=== PATIENT | female | born 1955 | race Caucasian/White ===

== ENCOUNTER 2016-12-23 10:44 | Inpatient (IN) | payer OTHER ==
[2016-12-23] MEDS ORDERED: IPRATROPIUM/ALBUTEROL 0.5-2.5 MG/3 ML AMPUL NEB ONE ×2 (10:53)
[2016-12-23 11:20] LABS: ABSOLUTE BASOPHILS # (AUTO) 0.1 10^3/uL (0.0-0.2); ABSOLUTE LYMPHOCYTES (AUTO) 1.4 10^3/uL (0.5-4.7); ABSOLUTE MONOCYTES (AUTO) 0.7 10^3/uL (0.1-1.4); ABSOLUTE NEUT (AUTO) 11.8 10^3/uL (1.7-8.2); BASOPHILS % (AUTO) 0.5 % (0-2); EOSINOPHILS % (AUTO) 0.3 % (0-6); HEMATOCRIT 47.1 % (36.0-47.0); HEMOGLOBIN 15.2 g/dL (12.0-15.5); HGB HCT DIFFERENCE -1.5; LYMPHOCYTES % (AUTO) 9.9 % (13-45); MEAN CORPUSCULAR HEMOGLOBIN 29.3 pg (27.0-33.4); MEAN CORPUSCULAR HGB CONC 32.3 g/dL (32.0-36.0); MEAN CORPUSCULAR VOLUME 91 fl (80-97); MONOCYTES % (AUTO) 5.1 % (3-13); RED CELL DISTRIBUTION WIDTH 14.6 % (11.5-14.0); SEGMENTED NEUTROPHILS % (AUTO) 84.2 % (42-78); WHITE BLOOD COUNT 14.1 10^3/uL (4.0-10.5)
[2016-12-23 11:33] LABS: ALANINE AMINOTRANSFERASE 28 U/L (9-52); ALBUMIN 4.2 g/dL (3.5-5.0); ALKALINE PHOSPHATASE 85 U/L (38-126); ANION GAP 12 (5-19); ASPARTATE AMINO TRANSFERASE 19 U/L (14-36); BILIRUBIN,DIRECT 0.5 mg/dL (0.0-0.4); BILIRUBIN,TOTAL 1.3 mg/dL (0.2-1.3); BLOOD UREA NITROGEN 12 mg/dL (7-20); CALCIUM 9.1 mg/dL (8.4-10.2); CARBON DIOXIDE 32 mmol/L (22-30); CHLORIDE 99 mmol/L (98-107); CREATINE KINASE 31 U/L (30-135); CREATININE RESULT 0.46 mg/dL (0.52-1.25); GLUCOSE 310 mg/dL (75-110); POTASSIUM 4.3 mmol/L (3.6-5.0); SODIUM 143.2 mmol/L (137-145); TOTAL PROTEIN 7.1 g/dL (6.3-8.2)
--- NOTE | 2016-12-23 11:36 | ER Document Report ---
ED General - General Chief Complaint: Breathing Difficulty Stated Complaint: DIFFICULTY BREATHING Mode of Arrival: Medic Information source: Patient Notes: 61-year-old female history of COPD presents with complaints of difficulty breathing shortness of breath, EMS noted patient was satting 63% on room air, patient was given breathing treatments and improved up to 85%. Patient denies any fevers admits to productive cough TRAVEL OUTSIDE OF THE [place] IN LAST 30 DAYS: No - HPI Onset: Other - 2 week duration Onset/Duration: Persistent Quality of pain: Achy Severity: Mild Pain Level: 1 Associated symptoms: Nonproductive cough, Shortness of breath Exacerbated by: Walking Relieved by: Denies Similar symptoms previously: Yes Recently seen / treated by doctor: Yes - Related Data Allergies/Adverse Reactions: No Known Drug Allergies Allergy (Verified 11/12/16 00:27) mosquito bites Allergy (Severe, Uncoded 11/12/16 00:27) Anaphylaxis Past Medical History - Social History Smoking Status: Former Smoker Cigarette use (# per day): No Chew tobacco use (# tins/day): No Smoking Education Provided: No Frequency of alcohol use: None Drug Abuse: None Family History: CAD, DM, Hypertension - Past Medical History Cardiac Medical History: Reports: Hx Congestive Heart Failure, Hx Hypercholesterolemia, Hx Hypertension, Hx Heart Murmur Pulmonary Medical History: Reports: Hx COPD, Hx Pneumonia Endocrine Medical History: Reports: Hx Diabetes Mellitus Type 2 Renal/ Medical History: Denies: Hx Peritoneal Dialysis GI Medical History: Reports: Hx Gastroesophageal Reflux Disease Psychiatric Medical History: Reports: Hx Depression Past Surgical History: Reports: Hx Orthopedic Surgery - Carpal tunnel release. - Immunizations Hx Diphtheria, Pertussis, Tetanus Vaccination: Yes Hx Pneumococcal Vaccination: 01/01/15 Review of Systems - Review of Systems Notes: REVIEW OF SYSTEMS: CONSTITUTIONAL : Denies fever, chills, or sweats. Denies recent illness. EENT: Denies eye, ear, throat, or mouth pain or symptoms. Denies nasal or sinus congestion or discharge. Denies throat, tongue, or mouth swelling or difficulty swallowing. CARDIOVASCULAR: Denies chest pain. Denies palpitations or racing or irregular heart beat. Denies ankle edema. RESPIRATORY: Admits to cough wheezing shortness of breath GASTROINTESTINAL: Denies abdominal pain or distention. Denies nausea, vomiting , or diarrhea. Denies blood in vomitus, stools, or per rectum. Denies black, tarry stools. Denies constipation. GENITOURINARY: Denies difficulty urinating, painful urination, burning, frequency, blood in urine, or discharge. FEMALE GENITOURINARY: Denies vaginal bleeding, heavy or abnormal periods, irregular periods. Denies vaginal discharge or odor. MUSCULOSKELETAL: Denies back or neck pain or stiffness. Denies joint pain or swelling. SKIN: Denies rash, lesions or sores. HEMATOLOGIC : Denies easy bruising or bleeding. LYMPHATIC: Denies swollen, enlarged glands. NEUROLOGICAL: Denies confusion or altered mental status. Denies passing out or loss of consciousness. Denies dizziness or lightheadedness. Denies headache. Denies weakness or paralysis or loss of use of either side. Denies problems with gait or speech. Denies sensory loss, numbness, or tingling. Denies seizures. PSYCHIATRIC: Denies anxiety or stress. Denies depression, suicidal ideation, or homicidal ideation. ALL OTHER SYSTEMS REVIEWED AND NEGATIVE. Dictation was performed using [employer] voice recognition software PHYSICAL EXAMINATION: GENERAL: Well-appearing, well-nourished and in mild respiratory distress HEAD: Atraumatic, normocephalic. EYES: Pupils equal round and reactive to light, extraocular movements intact, conjunctiva are normal. ENT: Nares patent, oropharynx clear without exudates. Moist mucous membranes. NECK: Normal range of motion, supple without lymphadenopathy LUNGS: Coarse wheezing all throughout HEART: Regular rate and rhythm without murmurs ABDOMEN: Soft, nontender, nondistended abdomen. No guarding, no rebound. No masses appreciated. Female : deferred Musculoskeletal: Normal range of motion, no pitting or edema. No cyanosis. NEUROLOGICAL: Cranial nerves grossly intact. Normal speech, normal gait. Normal sensory, motor exams PSYCH: Normal mood, normal affect. SKIN: Warm, Dry, normal turgor, no rashes or lesions noted. Physical Exam - Vital signs Vitals: Pulse Ox 85 L 12/23/16 10:55 Course - Re-evaluation Re-evalutation: 12/23/16 11:34 Patient immediately started on duo nebs otherwise she actually looks quite well for her hypoxemia, i expect admission 12/23/16 12:13 pt sats are 86% on nc, will admit at this tie for copd exacerbation, pt has received 3 total duo neb with 1 albuterol, steroids. - Vital Signs Vital signs: Temp Pulse Resp BP Pulse Ox 98.2 F 21 H 140/81 H 84 L 12/23/16 11:08 12/23/16 11:01 12/23/16 11:01 12/23/16 11:01 - Laboratory Result Diagrams: 12/23/16 11:10 12/23/16 11:10 Laboratory results interpreted by me: 12/23/16 12/23/16 12/23/16 11:10 11:10 11:10 WBC 14.1 H Hct 47.1 H RDW 14.6 H Seg Neutrophils % 84.2 H Lymphocytes % 9.9 L Absolute Neutrophils 11.8 H Carbon Dioxide 32 H Creatinine 0.46 L Glucose 310 H Direct Bilirubin 0.5 H NT-Pro-B Natriuret Pep 1100 H - Diagnostic Test Radiology reviewed: Image reviewed, Reports reviewed - EKG Interpretation by Me EKG shows normal: Sinus rhythm, [place], Intervals, QRS Complexes Critical Care Note - Critical Care Note Total time excluding time spent on procedures (mins): 34 Comments: 37 minutes of critical care time spent in direct contact evaluating and reevaluating the patient, treating symptoms, reviewing labs and studies and speaking with family and consultants excluding any procedures Discharge - Discharge Clinical Impression: Acute exacerbation of chronic obstructive pulmonary disease (COPD), Acute respiratory failure with hypoxemia Condition: Serious Disposition: ADMITTED INPATIENT Admitting Provider: Hospitalist Unit Admitted: Telemetry
[2016-12-23] MEDS ORDERED: LEVOFLOXACIN 750 MG/D5W RTU 150 ML IV ONE (11:43)
[2016-12-23 11:44] LABS: CREATINE KINASE MB 1.57 ng/mL (<4.55)
[2016-12-23 12:04] LABS: TROPONIN I 0.055 ng/mL
[2016-12-23] MEDS ORDERED: LEVALBUTEROL HCL NEB 1.25 MG/3 ML AMPUL NEB PRN (14:46)
[2016-12-23] MEDS ORDERED: NORMAL SALINE 1000 ML 1,000 ML IV PRN (14:46)
[2016-12-23] MEDS ORDERED: ACETAMINOPHEN 325 MG TABLET PO PRN (14:46)
[2016-12-23] MEDS ORDERED: ONDANSETRON HCL INJ/PF 4 MG/2 ML SDV IV PRN (14:46)
[2016-12-23] MEDS ORDERED: DEXTROSE 40% GEL 15 GM TUBE PO PRN ×2 (14:52)
[2016-12-23] MEDS ORDERED: GLUCAGON,HUMAN RECOMB 1 MG INJ IM PRN (14:52)
[2016-12-23] MEDS ORDERED: DEXTROSE 50%-WATER 25 GM/50 ML DISP.SYRIN IV PRN ×2 (14:52)
--- NOTE | 2016-12-23 15:16 | PDOC H&P ---
History of Present Illness Admission Date/PCP: 12/23/16 12:58 Patient complains of: Shortness of breath History of Present Illness: ISI SESAY is a 61 year old female, with history of hypertension, gastroesophageal reflux disease, COPD, chronic hypoxemic respiratory failure on home oxygen started to develop increasing shortness of breath at about 1 week duration. Patient recently discharged from the hospital 6 weeks ago for COPD exacerbation and pneumonia. She was doing fine until about 2 weeks ago reportedly she was diagnosed with diabetes mellitus. She was started on metformin and since then she started to develop shortness of breath. There is associated wheezing. No increasing lower extremity edema, no chest pain, no chills or fever, no sinus congestion or sore throat. There is no paroxysmal nocturnal dyspnea, nor orthopnea. She uses her nebulizers and inhalers aborting some relief of symptoms. For the past week the shortness of breath got worse, she decided to stop her metformin, her symptoms however persisted. Patient went to the emergency room for evaluation. Patient reportedly tachycardic and hypoxemic despite on supplemental oxygen and was therefore referred for admission. Past Medical History Past Medical History: Medication reconciliation pending verification from the patient's pharmacist Cardiac Medical History: Reports: Congestive Heart Failure, Hyperlipidema, Hypertension, Heart Murmur Pulmonary Medical History: Reports: Chronic Obstructive Pulmonary Disease (COPD) , Pneumonia Endocrine Medical History: Reports: Diabetes Mellitus Type 2 GI Medical History: Reports: Gastroesophageal Reflux Disease Psychiatric Medical History: Reports: Depression Past Surgical History Past Surgical History: Reports: Orthopedic Surgery - Carpal tunnel release. Social History Information Source: Patient Smoking Status: Former Smoker Frequency of Alcohol Use: Rare Hx Recreational Drug Use: Yes Drugs: Marijuana Hx Prescription Drug Abuse: No Family History Family History: CAD, DM, Hypertension Parental Family History Reviewed: Yes Children Family History Reviewed: Yes Sibling(s) Family History Reviewed.: Yes Medication/Allergy Allergies/Adverse Reactions: No Known Drug Allergies Allergy (Verified 11/12/16 00:27) mosquito bites Allergy (Severe, Uncoded 11/12/16 00:27) Anaphylaxis Review of Systems Constitutional: PRESENT: fatigue - Generalized. ABSENT: chills, fever(s), headache(s), weight gain, weight loss Eyes: ABSENT: visual disturbances Ears: ABSENT: hearing changes Nose, Mouth, and Throat: ABSENT: mouth pain, sore throat Cardiovascular: PRESENT: dyspnea on exertion. ABSENT: chest pain, edema, orthropnea, palpitations Respiratory: PRESENT: cough, dyspnea - Occasional, sputum - Occasional whitish. ABSENT: hemoptysis Gastrointestinal: ABSENT: abdominal pain, coffee ground emesis, constipation, diarrhea, hematemesis, hematochezia, melena, nausea, vomiting Genitourinary: ABSENT: difficulty urinating, dysuria, hematuria Musculoskeletal: ABSENT: joint swelling Integumentary: ABSENT: pruritus, rash, wounds Neurological: ABSENT: abnormal gait, abnormal speech, confusion, dizziness, focal weakness, syncope Psychiatric: ABSENT: anxiety, depression, homidical ideation, suicidal ideation Endocrine: ABSENT: cold intolerance, heat intolerance, polydipsia, polyphagia, polyuria Hematologic/Lymphatic: ABSENT: easy bleeding, easy bruising Physical Exam Vital Signs: Temp Pulse Resp BP Pulse Ox 98.2 F 26 H 137/73 H 87 L 12/23/16 11:08 12/23/16 14:00 12/23/16 12:01 12/23/16 14:00 General appearance: PRESENT: no acute distress, mild distress, well-developed, well-nourished Head exam: PRESENT: atraumatic, normocephalic Eye exam: PRESENT: conjunctiva pink, EOMI, PERRLA. ABSENT: scleral icterus Ear exam: PRESENT: normal external ear exam. ABSENT: drainage Mouth exam: PRESENT: moist, neck supple, tongue midline Neck exam: ABSENT: carotid bruit, JVD, lymphadenopathy, thyromegaly Respiratory exam: PRESENT: decreased breath sounds, wheezes - Mild bilateral. ABSENT: rales, rhonchi Cardiovascular exam: PRESENT: RRR, +S1, +S2. ABSENT: rubs Pulses: PRESENT: normal dorsalis pedis pul Vascular exam: PRESENT: normal capillary refill GI/Abdominal exam: PRESENT: normal bowel sounds, soft. ABSENT: distended, guarding, mass, organolmegaly, rebound, tenderness Rectal exam: PRESENT: deferred Extremities exam: PRESENT: full ROM, other - Trace pretibial edema. ABSENT: calf tenderness, clubbing Neurological exam: PRESENT: alert, awake, oriented to person, oriented to place , oriented to time, oriented to situation, CN II-XII grossly intact. ABSENT: motor sensory deficit Psychiatric exam: PRESENT: appropriate affect, normal mood. ABSENT: homicidal ideation, suicidal ideation Skin exam: PRESENT: dry, intact, warm. ABSENT: cyanosis, rash Results Impressions: Chest X-Ray 12/23/16 10:53 IMPRESSION: Prominent central pulmonary vasculature suggesting pulmonary hypertension. Assessment & Plan - Diagnosis (1) Acute on chronic respiratory failure with hypoxemia Is this a current diagnosis for this admission?: Yes (2) Acute exacerbation of chronic obstructive pulmonary disease (COPD) Is this a current diagnosis for this admission?: Yes (3) Depression Qualifiers: Depression Type: unspecified Qualified Code(s): F32.9 - Major depressive disorder, single episode, unspecified Is this a current diagnosis for this admission?: Yes (4) GERD (gastroesophageal reflux disease) Qualifiers: Esophagitis presence: without esophagitis Qualified Code(s): K21.9 - Gastro-esophageal reflux disease without esophagitis Is this a current diagnosis for this admission?: Yes (5) Hyperlipidemia Qualifiers: Hyperlipidemia type: unspecified Qualified Code(s): E78.5 - Hyperlipidemia, unspecified Is this a current diagnosis for this admission?: Yes (6) Type II diabetes mellitus Qualifiers: Diabetes mellitus complication status: with unspecified complications Diabetes mellitus exterminator helper insulin use: without exterminator helper use Qualified Code(s): E11.8 - Type 2 diabetes mellitus with unspecified complications Is this a current diagnosis for this admission?: Yes - Time Time Spent: 50 to 70 Minutes - Inpatient Certification Based on my medical assessment, after consideration of the patient's comorbidities, presenting symptoms, or acuity I expect that the services needed warrant INPATIENT care.: Yes I certify that my determination is in accordance with my understanding of Medicare's requirements for reasonable and necessary INPATIENT services [42 CFR 412.3e].: Yes Medical Necessity: Significant Comorbidiites Make Outpatient Treatment Too Risky , Need For Continuous Telemetry Monitoring, Need for Nebulizer Therapy and Monitoring of Response, Risk of Complication if Not Cared For in Hospital Post Hospital Care: D/C Pompom Maker Documentation - Plan Summary Plan Summary: The patient will be admitted to telemetry. The patient will be on supplemental oxygen, start intravenous steroid, [id number] bronchodilators. I will culture the patient's sputum. I will discontinue her metformin, begin her on Amaryl. Begin sliding scale with regular insulin coverage. DVT prophylaxis with Lovenox will be placed. We will serially monitor troponins. I will begin her on aspirin. Patient denies any chest pain at all. We will continue to monitor. Further testing depends on initial evaluation as outlined above.
[2016-12-23] MEDS ORDERED: ASPIRIN 81 MG TABLET, CHEWABLE PO ONE (16:00)
[2016-12-23] MEDS ORDERED: GLIMEPIRIDE 1 MG TABLET PO ONE (16:00)
[2016-12-23 16:12] LABS: CREATINE KINASE MB 1.98 ng/mL (<4.55); TROPONIN I 0.047 ng/mL
[2016-12-23] MEDS: IPRATROPIUM/ALBUTEROL 0.5-2.5 MG/3 ML AMPUL NEB SCH ×2 (16:58→20:14)
[2016-12-23] MEDS: METHYLPREDNISOLONE INJ 125 MG/2 ML SDV IV SCH ×2 (18:20→21:31)
[2016-12-23] MEDS: INSULIN REG, HUMAN 100 UNIT/ML 3 ML VIAL (PYX) SUBCUT PRN ×2 (18:20→21:31)
[2016-12-23] MEDS: DOCUSATE SODIUM 100 MG CAPSULE PO SCH (18:21)
--- NOTE | 2016-12-23 20:03 | EKG REPORT ---
SEVERITY:- ABNORMAL ECG - SINUS TACHYCARDIA LOW VOLTAGE IN FRONTAL LEADS CONSIDER ANTEROSEPTAL INFARCT : Confirmed by: Leslie Dalton MD 23-Dec-2016 20:02:16
[2016-12-23] MEDS: PAROXETINE HCL 20 MG TABLET PO SCH (21:31)
[2016-12-23 21:52] LABS: CREATINE KINASE MB 2.22 ng/mL (<4.55); TROPONIN I 0.031 ng/mL
[2016-12-24] MEDS: IPRATROPIUM/ALBUTEROL 0.5-2.5 MG/3 ML AMPUL NEB SCH ×7 (00:07→23:08)
[2016-12-24 03:13] LABS: HEMOGLOBIN 14.1 g/dL (12.0-15.5); HGB HCT DIFFERENCE -0.7; MEAN CORPUSCULAR HEMOGLOBIN 29.3 pg (27.0-33.4); MEAN CORPUSCULAR HGB CONC 32.9 g/dL (32.0-36.0); MEAN CORPUSCULAR VOLUME 89 fl (80-97); RED BLOOD COUNT 4.83 10^6/uL (3.72-5.28); RED CELL DISTRIBUTION WIDTH 14.8 % (11.5-14.0); WHITE BLOOD COUNT 8.9 10^3/uL (4.0-10.5)
[2016-12-24 03:32] LABS: CREATINE KINASE MB 2.13 ng/mL (<4.55); TROPONIN I 0.039 ng/mL
[2016-12-24] MEDS: METHYLPREDNISOLONE INJ 125 MG/2 ML SDV IV SCH ×4 (04:12→21:32)
[2016-12-24] MEDS: LANSOPRAZOLE 30 MG TAB.RAP.DR PO SCH (05:22)
[2016-12-24] MEDS ORDERED: (PENDING PHARMACY ID) (Nifedipine [Nifedipine Er] 60 MG) PO SCH (10:00)
[2016-12-24] MEDS ORDERED: (PENDING PHARMACY ID) (Calcium Carbonate/Vitamin D3 [Calcium 500-Vit D3 200 Caplet] 1 TAB) PO SCH (10:00)
[2016-12-24] MEDS: NIFEDIPINE 30 MG TAB.ER.24 PO SCH (10:20)
[2016-12-24] MEDS: CALCIUM CARBONATE 250 MG/VITAMIN D3 125 UNIT TABLET PO SCH (10:21)
[2016-12-24] MEDS: GLIMEPIRIDE 1 MG TABLET PO SCH (10:21)
[2016-12-24] MEDS: ENOXAPARIN SODIUM INJ 40 MG/0.4 ML DISP.SYRIN SUBCUT SCH (10:21)
[2016-12-24] MEDS: ASPIRIN 81 MG TABLET, CHEWABLE PO SCH (10:21)
[2016-12-24] MEDS: DOCUSATE SODIUM 100 MG CAPSULE PO SCH ×2 (10:22→17:14)
--- NOTE | 2016-12-24 10:29 | PDOC PROGRESS REPORT ---
Subjective Progress Note for:: 12/24/16 Subjective:: Patient is breathing better today. Denies chest pain or nausea, vomiting, chills nor fever. No diarrhea. No PND or orthopnea. Wheezing significantly improved. Patient wanting pulmonary function tests for her [facility] application regarding her COPD. Physical Exam Vital Signs: Temp Pulse Resp BP Pulse Ox 98.2 F 113 H 20 137/74 H 68 L 12/24/16 07:41 12/24/16 07:52 12/24/16 07:52 12/24/16 07:41 12/24/16 07:52 Intake & Output 12/23/16 12/24/16 12/25/16 06:59 06:59 06:59 Intake Total 472 Balance 472 Weight 73.8 kg General appearance: PRESENT: no acute distress, other - Nasal cannula oxygen Head exam: PRESENT: normocephalic Eye exam: PRESENT: EOMI Mouth exam: PRESENT: moist, neck supple Neck exam: ABSENT: JVD Respiratory exam: PRESENT: clear to auscultation taurus, decreased breath sounds. ABSENT: rhonchi, wheezes Cardiovascular exam: PRESENT: RRR. ABSENT: gallop GI/Abdominal exam: PRESENT: normal bowel sounds, soft. ABSENT: distended, tenderness Extremities exam: ABSENT: pedal edema Neurological exam: PRESENT: alert, awake, oriented to situation Skin exam: PRESENT: dry, warm. ABSENT: cyanosis Results Laboratory Results: 12/24/16 03:00 12/24/16 03:00 WBC 8.9 RBC 4.83 Hgb 14.1 Hct 43.0 MCV 89 MCH 29.3 MCHC 32.9 RDW 14.8 H Plt Count 225 12/23/16 12/23/16 12/23/16 15:33 15:33 20:55 Creatine Kinase 27 L 29 L CK-MB (CK-2) 1.98 Troponin I 0.047 12/23/16 12/24/16 12/24/16 20:55 03:00 03:00 Creatine Kinase 29 L CK-MB (CK-2) 2.22 2.13 Troponin I 0.031 0.039 Impressions: Chest X-Ray 12/23/16 10:53 IMPRESSION: Prominent central pulmonary vasculature suggesting pulmonary hypertension. Assessment & Plan - Diagnosis (1) Acute on chronic respiratory failure with hypoxemia Is this a current diagnosis for this admission?: Yes (2) Acute exacerbation of chronic obstructive pulmonary disease (COPD) Is this a current diagnosis for this admission?: Yes (3) Depression Qualifiers: Depression Type: unspecified Qualified Code(s): F32.9 - Major depressive disorder, single episode, unspecified Is this a current diagnosis for this admission?: Yes (4) GERD (gastroesophageal reflux disease) Qualifiers: Esophagitis presence: without esophagitis Qualified Code(s): K21.9 - Gastro-esophageal reflux disease without esophagitis Is this a current diagnosis for this admission?: Yes (5) Hyperlipidemia Qualifiers: Hyperlipidemia type: unspecified Qualified Code(s): E78.5 - Hyperlipidemia, unspecified Is this a current diagnosis for this admission?: Yes (6) Type II diabetes mellitus Qualifiers: Diabetes mellitus complication status: with unspecified complications Diabetes mellitus mcfp insulin use: without terminal operator use Qualified Code(s): E11.8 - Type 2 diabetes mellitus with unspecified complications; Z79.4 - petroleum terminal plant operator (current) use of insulin Is this a current diagnosis for this admission?: Yes - Time Time Spent with patient: 25-34 minutes - Plan Summary Plan Summary: Continue IV steroids for now and nebulizers. Discontinue intravenous fluids. Follow cultures. We will schedule the patient for outpatient pulmonary function tests would improve. Continue supportive care. Increase activity. Continue supplemental oxygen.
[2016-12-24] MEDS: INSULIN REG, HUMAN 100 UNIT/ML 3 ML VIAL (PYX) SUBCUT PRN ×3 (11:40→21:31)
[2016-12-24 19:10] LABS: APPEARANCE,URINE CLEAR; BILIRUBIN,URINE NEGATIVE (NEGATIVE); GLUCOSE, URINE >=500 mg/dL (NEGATIVE); KETONES,URINE TRACE mg/dL (NEGATIVE); LEUKOCYTE ESTERASE,URINE NEGATIVE (NEGATIVE); NITRITE,URINE NEGATIVE (NEGATIVE); PROTEIN,URINE NEGATIVE (NEGATIVE); URINE SPECIFIC GRAVITY 1.033; UROBILINOGEN,URINE NEGATIVE mg/dL (<2.0)
[2016-12-24] MEDS: PAROXETINE HCL 20 MG TABLET PO SCH (21:31)
[2016-12-25] MEDS: METHYLPREDNISOLONE INJ 125 MG/2 ML SDV IV SCH ×2 (02:42→10:24)
[2016-12-25] MEDS: IPRATROPIUM/ALBUTEROL 0.5-2.5 MG/3 ML AMPUL NEB SCH ×3 (03:05→11:54)
[2016-12-25] MEDS: LANSOPRAZOLE 30 MG TAB.RAP.DR PO SCH (05:09)
[2016-12-25] MEDS: GLIMEPIRIDE 1 MG TABLET PO SCH (07:54)
[2016-12-25] MEDS: INSULIN REG, HUMAN 100 UNIT/ML 3 ML VIAL (PYX) SUBCUT PRN ×2 (07:59→11:47)
[2016-12-25] MEDS: ENOXAPARIN SODIUM INJ 40 MG/0.4 ML DISP.SYRIN SUBCUT SCH (08:00)
[2016-12-25] MEDS: CALCIUM CARBONATE 250 MG/VITAMIN D3 125 UNIT TABLET PO SCH (10:23)
[2016-12-25] MEDS: DOCUSATE SODIUM 100 MG CAPSULE PO SCH (10:24)
[2016-12-25] MEDS: ASPIRIN 81 MG TABLET, CHEWABLE PO SCH (10:24)
[2016-12-25] MEDS: NIFEDIPINE 30 MG TAB.ER.24 PO SCH (10:24)
--- NOTE | 2016-12-25 12:21 | PDOC DISCHARGE SUMMARY ---
General - Admit/Disc Date/PCP Admission Date/Primary Care Provider: 12/23/16 14:46 Discharge Date: 12/25/16 - Discharge Diagnosis (1) Acute on chronic respiratory failure with hypoxemia Is this a current diagnosis for this admission?: Yes (2) Acute exacerbation of chronic obstructive pulmonary disease (COPD) Is this a current diagnosis for this admission?: Yes (3) Depression Is this a current diagnosis for this admission?: Yes (4) GERD (gastroesophageal reflux disease) Is this a current diagnosis for this admission?: Yes (5) Hyperlipidemia Is this a current diagnosis for this admission?: Yes (6) Type II diabetes mellitus Is this a current diagnosis for this admission?: Yes - Additional Information Resuscitation Status: Full Code Discharge Diet: Cardiac - low-fat low-salt, Diabetic - no concentrated sweets Discharge Activity: Activity As Tolerated, Balance Activity w/Rest, Slowly Increase Activity Home Medications: Albuterol Sulfate [Ventolin 0.083% Neb 2.5 mg/3 mL Ampul] 2.5 mg NEB Q4HP PRN Budesonide/Formoterol Fumarate [Symbicort HFA 160-4.5 mcg Inhaler 6 gm] 2 puff IH Q12 12/23/16 Calcium Carbonate/Vitamin D3 [Calcium 500-Vit D3 200 Tablet] 1 tab PO DAILY Ipratropium [place] [Atrovent 0.02% Neb 0.5 mg/2.5 ml Ampul] 0.5 mg NEB Q4HP PRN 12/23/16 Ipratropium/Albuterol Sulfate [Combivent Respimat 4 gm Mdi] 1 puff IH Q6 Medroxyprogesterone Acet [Depo-Provera Inj 150 mg/1 ml Vial] 150 mg IM ASDIR Nifedipine [Nifedipine ER] 60 mg PO DAILY 12/23/16 Omeprazole 20 mg PO Q12 12/23/16 Paroxetine HCl [Paxil 20 mg Tablet] 10 mg PO QHS 12/23/16 Aspirin [Aspirin 81 mg Chewable Tablet] 81 mg PO DAILY tab.chew 12/25/16 Glimepiride [Amaryl 1 mg Tablet] 2 mg PO ACBRKFST #30 tablet 12/25/16 Prednisone [Sterapred Ds] 1 pkg PO ASDIR PRN 12 Days 12/25/16 Additional Information: Return to the emergency room if symptoms get worse Measure blood sugar 3 times a day and record. Bring to next physician visit Pulmonary function test as outpatient in 2-4 weeks with primary care physician. Continue home oxygen at 2 L nasal cannula History of Present Illness Patient complains of: Shortness of breath History of Present Illness: ISI SESAY is a 61 year old female, with history of hypertension, gastroesophageal reflux disease, COPD, chronic hypoxemic respiratory failure on home oxygen started to develop increasing shortness of breath at about 1 week duration. Patient recently discharged from the hospital 6 weeks ago for COPD exacerbation and pneumonia. She was doing fine until about 2 weeks ago reportedly she was diagnosed with diabetes mellitus. She was started on metformin and since then she started to develop shortness of breath. There is associated wheezing. No increasing lower extremity edema, no chest pain, no chills or fever, no sinus congestion or sore throat. There is no paroxysmal nocturnal dyspnea, nor orthopnea. She uses her nebulizers and inhalers aborting some relief of symptoms. For the past week the shortness of breath got worse, she decided to stop her metformin, her symptoms however persisted. Patient went to the emergency room for evaluation. Patient reportedly tachycardic and hypoxemic despite on supplemental oxygen and was therefore referred for admission. Hospital Course Hospital Course: The patient was admitted to telemetry. The patient was started on intravenous steroids, [id number] nebulizers, supplemental oxygen, and DVT prophylaxis with Lovenox. She was placed on sliding scale insulin with regular insulin coverages. Amaryl was begun. Patient improved the following morning, in terms of wheezing and shortness of breath. On the third day of hospitalization, the patient continues to improve, she is less tachycardic, and able to ambulate better. She is very adamant about going home and continue treatment on an outpatient basis. She has stopped smoking years ago. She has nebulizers and inhalers at home. She requested to be discharged home on the third day of hospitalization. She refuses to take her metformin and therefore this was discontinued. She was advised to measure her blood sugar 3 times a day and record, bring to primary care physician visit. She was advised to return to the emergency room if symptoms worsen. Physical Exam Vital Signs: Temp Pulse Resp BP Pulse Ox 98.2 F 101 H 20 127/70 H 94 12/25/16 08:31 12/25/16 08:31 12/25/16 08:31 12/25/16 08:31 12/25/16 08:31 Intake & Output 12/24/16 12/25/16 12/26/16 06:59 06:59 06:59 Intake Total 472 702 Balance 472 702 Weight 73.8 kg 74.6 kg General appearance: PRESENT: no acute distress, cooperative Head exam: PRESENT: normocephalic Eye exam: PRESENT: EOMI Mouth exam: PRESENT: moist, neck supple Neck exam: ABSENT: JVD Respiratory exam: PRESENT: decreased breath sounds, rhonchi - few, unlabored. ABSENT: wheezes Cardiovascular exam: PRESENT: RRR. ABSENT: gallop GI/Abdominal exam: PRESENT: soft. ABSENT: distended, tenderness Extremities exam: ABSENT: pedal edema Neurological exam: PRESENT: alert, awake, oriented to person, oriented to place , oriented to time, oriented to situation Skin exam: PRESENT: dry, warm. ABSENT: cyanosis Results Laboratory Results: 12/24/16 03:00 12/23/16 18:41 Urine Color YELLOW Urine Appearance CLEAR Urine pH 6.0 Ur Specific [place] 1.033 Urine Protein NEGATIVE Urine Glucose (UA) >=500 H Urine Ketones TRACE H Urine Blood NEGATIVE Urine Nitrite NEGATIVE Ur Leukocyte Esterase NEGATIVE Urine WBC (Auto) 1 Urine RBC (Auto) 1 12/23/16 12/23/16 12/23/16 15:33 15:33 20:55 Creatine Kinase 27 L 29 L CK-MB (CK-2) 1.98 Troponin I 0.047 12/23/16 12/24/16 12/24/16 20:55 03:00 03:00 Creatine Kinase 29 L CK-MB (CK-2) 2.22 2.13 Troponin I 0.031 0.039 Impressions: Chest X-Ray 12/23/16 10:53 IMPRESSION: Prominent central pulmonary vasculature suggesting pulmonary hypertension. Qualifiers PATEINT BEING DISCHARGED WITH ANY OF THE FOLLOWING DIAGNOSIS?: No Plan Discharge Plan: Follow-up with primary care physician in 3-5 days. Time Spent: Less than 30 Minutes
[2016-12-25 12:41] VITALS: BP 122/72
[2016-12-25] MEDS ORDERED: POTASSI CL 20 MEQ/50 ML RIDER 0 MEQ/0 ML RTUPB IV ONE (13:45)
== END 2016-12-25 13:00 | disposition home or self-care (01) | DRG 190 ==
LOC: ER 10:44 → UNDOADMIN 12:58 → EH 12:58 → 4N 16:18
PROC: 3E0F73Z Introduction of Anti-inflammatory into Respiratory Tract, Via Natural or Artificial Opening (ICD-10-PCS; principal; 2016-12-23)
DX: J44.1 Chronic obstructive pulmonary disease with (acute) exacerbation (principal); J96.21 Acute and chronic respiratory failure with hypoxia; F32.9 Major depressive disorder, single episode, unspecified; K21.9 Gastro-esophageal reflux disease without esophagitis; E78.5 Hyperlipidemia, unspecified; E11.9 Type 2 diabetes mellitus without complications; I10 Essential (primary) hypertension; I27.2 Other secondary pulmonary hypertension; E78.00 Pure hypercholesterolemia, unspecified; I50.9 Heart failure, unspecified; Z99.81 Dependence on supplemental oxygen; Z79.82 Long term (current) use of aspirin; Z79.899 Other long term (current) drug therapy; Z87.891 Personal history of nicotine dependence; Z79.4 Long term (current) use of insulin; Z83.3 Family history of diabetes mellitus; Z82.49 Family history of ischemic heart disease and other diseases of the circulatory system
CPT/HCPCS: 36415; 71010; 80053; 81001; 82550; 82553; 82962; 83880; 84484; 85025; 85027; 87040; 93005; 93010; 94640; 96365; 99291; J1650; J1815; J1956; J2930; J7620

== ENCOUNTER 2017-01-18 18:23 | Inpatient (IN) | payer OTHER ==
[2017-01-18] MEDS ORDERED: HYDROCODONE/ACETAMINOPHEN 5-325 MG TABLET PO ONE (19:30)
[2017-01-18] MEDS ORDERED: IPRATROPIUM/ALBUTEROL 0.5-2.5 MG/3 ML AMPUL NEB ONE (19:31)
[2017-01-18] MEDS ORDERED: ALBUTEROL SULFATE 0.083% NEB 2.5 MG/3 ML AMPUL NEB ONE (19:31)
--- NOTE | 2017-01-18 19:39 | ER Document Report ---
ED Medical Screen (RME) - General Chief Complaint: R leg pain/swelling/ short of breath Stated Complaint: RIGHT LEG PAIN, DIFFICULTY BREATHING Time Seen by Provider: 01/18/17 19:13 Mode of Arrival: Wheelchair Information source: Patient Notes: Patient is a 61-year-old female with a history of COPD who presents to the ER today for pain in her right calf that is progressively worsening over the past couple of days. Patient states that this swelling has spread up into her thigh. She is on no blood thinners and has no history of any blood clots. She also complains of worsening shortness of breath when she walks, she states that she is usually short of breath but that it has worsened here recently. She is on 2 L of oxygen at night at home. TRAVEL OUTSIDE OF THE [place] IN LAST 30 DAYS: No - Related Data Allergies/Adverse Reactions: No Known Drug Allergies Allergy (Verified 11/12/16 00:27) mosquito bites Allergy (Severe, Uncoded 11/12/16 00:27) Anaphylaxis Past Medical History - General Information source: Patient - Social History Cigarette use (# per day): No - Past Medical History Cardiac Medical History: Reports: Hx Congestive Heart Failure, Hx Hypercholesterolemia, Hx Hypertension, Hx Heart Murmur Pulmonary Medical History: Reports: Hx COPD, Hx Pneumonia Endocrine Medical History: Reports: Hx Diabetes Mellitus Type 2 Renal/ Medical History: Denies: Hx Peritoneal Dialysis GI Medical History: Reports: Hx Gastroesophageal Reflux Disease Psychiatric Medical History: Reports: Hx Depression Past Surgical History: Reports: Hx Orthopedic Surgery - Carpal tunnel release. - Immunizations Hx Diphtheria, Pertussis, Tetanus Vaccination: Yes Review of Systems - Review of Systems Respiratory: No symptoms reported Musculoskeletal: No symptoms reported Physical Exam - Vital signs Vitals: Temp Pulse Resp BP Pulse Ox 97.9 F 117 H 20 116/54 L 90 L 01/18/17 18:35 01/18/17 18:35 01/18/17 18:35 01/18/17 18:35 01/18/17 18:35 - Notes Notes: PHYSICAL EXAMINATION: GENERAL: Well-appearing and in no acute distress. NECK: Normal range of motion, supple without lymphadenopathy LUNGS: CTAB and equal. No wheezes rales or rhonchi. HEART: Regular rate and rhythm without murmurs extremities: tender to right calf, Tate's sign positive Course - Vital Signs Vital signs: Temp Pulse Resp BP Pulse Ox 97.9 F 117 H 20 116/54 L 90 L 01/18/17 18:35 01/18/17 18:35 01/18/17 18:35 01/18/17 18:35 01/18/17 18:35
[2017-01-18 20:28] LABS: APPEARANCE,URINE CLOUDY; BILIRUBIN,URINE SMALL (NEGATIVE); GLUCOSE, URINE 50 mg/dL (NEGATIVE); KETONES,URINE TRACE mg/dL (NEGATIVE); LEUKOCYTE ESTERASE,URINE TRACE (NEGATIVE); NITRITE,URINE NEGATIVE (NEGATIVE); PROTEIN,URINE 30 mg/dL (NEGATIVE); UROBILINOGEN,URINE NEGATIVE mg/dL (<2.0)
--- NOTE | 2017-01-18 20:31 | EKG REPORT ---
SEVERITY:- OTHERWISE NORMAL ECG - SINUS TACHYCARDIA : Confirmed by: Yee Cortés 18-Jan-2017 20:30:57
[2017-01-18 20:32] LABS: ABSOLUTE BASOPHILS # (AUTO) 0.1 10^3/uL (0.0-0.2); ABSOLUTE EOSINOPHILS # (AUTO) 0.2 10^3/uL (0.0-0.6); ABSOLUTE MONOCYTES (AUTO) 0.7 10^3/uL (0.1-1.4); ABSOLUTE NEUT (AUTO) 10.5 10^3/uL (1.7-8.2); EOSINOPHILS % (AUTO) 1.8 % (0-6); HEMATOCRIT 42.9 % (36.0-47.0); HEMOGLOBIN 14.1 g/dL (12.0-15.5); HGB HCT DIFFERENCE -0.6; LYMPHOCYTES % (AUTO) 14.5 % (13-45); MEAN CORPUSCULAR HEMOGLOBIN 28.7 pg (27.0-33.4); MEAN CORPUSCULAR VOLUME 87 fl (80-97); MONOCYTES % (AUTO) 5.4 % (3-13); RED BLOOD COUNT 4.93 10^6/uL (3.72-5.28); RED CELL DISTRIBUTION WIDTH 14.5 % (11.5-14.0); SEGMENTED NEUTROPHILS % (AUTO) 77.3 % (42-78); WHITE BLOOD COUNT 13.6 10^3/uL (4.0-10.5)
[2017-01-18] MEDS ORDERED: HEPARIN SODIUM,PORCINE/D5W 250 ML IV PRN (20:39)
[2017-01-18] MEDS ORDERED: HEPARIN SOD (PORCINE) 1,000 UNIT/ML 10 ML VIAL IV ONE (20:39)
[2017-01-18 20:45] LABS: PROTHROMBIN TIME 12.6 SEC (11.4-15.4)
[2017-01-18 20:46] LABS: PARTIAL THROMBOPLASTIN TIME 24.9 SEC (23.5-35.8)
[2017-01-18 20:48] LABS: ALANINE AMINOTRANSFERASE 21 U/L (9-52); ALBUMIN 4.4 g/dL (3.5-5.0); ALKALINE PHOSPHATASE 97 U/L (38-126); ANION GAP 13 (5-19); ASPARTATE AMINO TRANSFERASE 21 U/L (14-36); BILIRUBIN,DIRECT 0.5 mg/dL (0.0-0.4); BLOOD UREA NITROGEN 26 mg/dL (7-20); CALCIUM 10.3 mg/dL (8.4-10.2); CARBON DIOXIDE 27 mmol/L (22-30); CHLORIDE 97 mmol/L (98-107); CREATININE RESULT 0.84 mg/dL (0.52-1.25); GLUCOSE 258 mg/dL (75-110); POTASSIUM 4.1 mmol/L (3.6-5.0); SODIUM 136.5 mmol/L (137-145); TOTAL PROTEIN 8.1 g/dL (6.3-8.2)
--- NOTE | 2017-01-18 22:41 | ER Document Report ---
ED General - General Chief Complaint: R leg pain/swelling/ short of breath Stated Complaint: RIGHT LEG PAIN, DIFFICULTY BREATHING Time Seen by Provider: 01/18/17 19:13 Mode of Arrival: Wheelchair Information source: Patient Notes: This is a 61-year-old female with a history of hypertension, diabetes, COPD who presents to the emergency room with swelling and pain to the right lower extremity. Patient also complains of shortness of breath. Patient does state that her right lower extremity pain and swelling started last night. She denies any previous blood clots. She denies any recent travel. She denies any cancer. She is on medroxyprogesterone shots every 3 months. She last smoked 2 years ago. TRAVEL OUTSIDE OF THE [place] IN LAST 30 DAYS: No - HPI Onset: Yesterday Onset/Duration: Gradual Quality of pain: Dull Severity: Moderate Pain Level: 3 Associated symptoms: Shortness of breath. denies: Chest pain, Fever Exacerbated by: Movement Relieved by: Denies Similar symptoms previously: No Recently seen / treated by doctor: No - Related Data Allergies/Adverse Reactions: No Known Drug Allergies Allergy (Verified 11/12/16 00:27) mosquito bites Allergy (Severe, Uncoded 11/12/16 00:27) Anaphylaxis Past Medical History - General Information source: Patient - Social History Smoking Status: Former Smoker - Quit 2 years ago Cigarette use (# per day): No Chew tobacco use (# tins/day): No Frequency of alcohol use: Rare Drug Abuse: None Lives with: Alone Family History: CAD, DM, Hypertension - Past Medical History Cardiac Medical History: Reports: Hx Congestive Heart Failure, Hx Hypercholesterolemia, Hx Hypertension, Hx Heart Murmur Pulmonary Medical History: Reports: Hx COPD, Hx Pneumonia Endocrine Medical History: Reports: Hx Diabetes Mellitus Type 2 - overnight regular insulin Renal/ Medical History: Denies: Hx Peritoneal Dialysis GI Medical History: Reports: Hx Gastroesophageal Reflux Disease Psychiatric Medical History: Reports: Hx Depression Past Surgical History: Reports: Hx Orthopedic Surgery - Carpal tunnel release. - Immunizations Hx Diphtheria, Pertussis, Tetanus Vaccination: Yes Hx Pneumococcal Vaccination: 01/01/15 Review of Systems - Review of Systems Constitutional: denies: Chills, Fever EENT: No symptoms reported Cardiovascular: See HPI Respiratory: See HPI Gastrointestinal: No symptoms reported Genitourinary: No symptoms reported Female Genitourinary: No symptoms reported Musculoskeletal: See HPI Skin: See HPI Hematologic/Lymphatic: No symptoms reported Neurological/Psychological: No symptoms reported Physical Exam - Vital signs Vitals: Temp Pulse Resp BP Pulse Ox 97.9 F 117 H 20 116/54 L 90 L 01/18/17 18:35 01/18/17 18:35 01/18/17 18:35 01/18/17 18:35 01/18/17 18:35 Notes: Physical exam: GENERAL: 61-year-old female, alert and oriented 3, does appear to be short of breath. HEAD: Atraumatic, normocephalic. EYES: Pupils equal round and reactive to light, extraocular movements intact, sclera anicteric, conjunctiva are normal. ENT: TMs normal, nares patent, oropharynx clear without exudates. Moist mucous membranes. NECK: Normal range of motion, supple without lymphadenopathy or JVD. LUNGS: Wheezing bilaterally HEART: Regular rate and rhythm without murmurs, rubs or gallops. ABDOMEN: Soft, normoactive bowel sounds. No tenderness to palpation. No guarding, no rebound. No masses appreciated. EXTREMITIES: Right lower extremity does have swelling with plethora. There is swelling of the calf with calf tenderness. There is a dorsal pedal pulse which I have marked. There is a bluish to the toes but there is Refill there. The extremity is warm. NEUROLOGICAL: Cranial nerves II through XII grossly intact. Normal speech, normal gait. PSYCH: Normal mood, normal affect. SKIN: Warm, Dry, normal turgor, no rashes or lesions noted. Course - Re-evaluation Re-evalutation: The patient was already started on IV heparin before the vascular study. The tech was able to see good arterial flow. The blood clot goes from the popliteal area to the common femoral. There was venous flow down in the lower leg. 01/18/17 22:45 I discussed the ultrasound findings with Dr. Coburn. He recommends admitting the patient here with IV heparin. The patient was treated for COPD with a dual med with improvement. Obviously, it is possible that she has a PE given the lower extremity DVT findings today. In any event, patient is on heparin and I discussed the case with Dr. Agustin who is admitting the patient. - Vital Signs Vital signs: Temp Pulse Resp BP Pulse Ox 97.9 F 117 H 20 146/85 H 91 L 01/18/17 18:35 01/18/17 18:35 01/18/17 21:01 01/18/17 21:01 01/18/17 21:01 - Laboratory Result Diagrams: 01/18/17 20:22 01/18/17 20:22 Laboratory results interpreted by me: 01/18/17 01/18/17 01/18/17 19:50 20:22 20:22 WBC 13.6 H RDW 14.5 H Absolute Neutrophils 10.5 H Sodium 136.5 L Chloride 97 L BUN 26 H Glucose 258 H POC Glucose Calcium 10.3 H Direct Bilirubin 0.5 H Urine Protein 30 H Urine Glucose (UA) 50 H Urine Ketones TRACE H Urine Bilirubin SMALL H Ur Leukocyte Esterase TRACE H 01/18/17 21:27 WBC RDW Absolute Neutrophils Sodium Chloride BUN Glucose POC Glucose 287 H Calcium Direct Bilirubin Urine Protein Urine Glucose (UA) Urine Ketones Urine Bilirubin Ur Leukocyte Esterase - Diagnostic Test Radiology reviewed: Image reviewed, Reports reviewed - Lower extremity Doppler shows DVT from the popliteal to the common femoral - EKG Interpretation by Me Rate: Tachycardia - EKG shows sinus tachycardia with a ventricular rate of 108, no acute ST-T wave changes Critical Care Note - Critical Care Note Total time excluding time spent on procedures (mins): 60 Discharge - Discharge Clinical Impression: DVT, dyspnea, COPD exacerbation Condition: Stable Disposition: ADMITTED OBSERVATION Admitting Provider: Hospitalist - Dr. Agustin Unit Admitted: Telemetry
--- NOTE | 2017-01-18 23:21 | XCELERA REPORT ---
[address] [address] Lower Extremity Venous Evaluation Name: ISI SESAY Age: 61 yrs Gender: Female : 1955 Patient Status: Emergency Patient Location: ER Study Date: 01/18/2017 08:41 PM Procedure: Color flow and duplex imaging of the veins of the right lower extremity as well as the left Common Femoral vein. Reason For Study: right leg with swelling pain to calf Ordering Physician: DORENE HDEZ PA-C Performed By: La Starks Right Sided Venous Evaluation Abnormal vessel filling, enlargement, , Lack of Colour flow from the Common Femoral vein to the Popliteal vein. Critical Findings Called in to Dr Hosek at about 2230. Interpretation Summary Extensive DVT in the right lower extremity veins. : DORENE HDEZ PA-C > Jono Coburn
[2017-01-19] MEDS ORDERED: GLUCAGON,HUMAN RECOMB 1 MG INJ IM PRN (00:23)
[2017-01-19] MEDS ORDERED: DEXTROSE 50%-WATER 25 GM/50 ML DISP.SYRIN IV PRN ×2 (00:23)
[2017-01-19] MEDS ORDERED: DEXTROSE 40% GEL 15 GM TUBE PO PRN ×2 (00:23)
[2017-01-19] MEDS ORDERED: HEPARIN SOD (PORCINE) 1,000 UNIT/ML 10 ML VIAL IV PRN (00:26)
[2017-01-19] MEDS ORDERED: MAGNESIUM HYDROXIDE SUSP 30 ML UDCUP PO PRN (00:31)
[2017-01-19] MEDS ORDERED: IPRATROPIUM/ALBUTEROL 0.5-2.5 MG/3 ML AMPUL NEB PRN (00:31)
--- NOTE | 2017-01-19 01:25 | PDOC H&P ---
History of Present Illness Admission Date/PCP: 01/18/17 22:47 PCP [place] Patient complains of: Right leg swelling, SOB History of Present Illness: ISI SESAY is a 61 year old female with underlying endometriosis, on long-term Depo-Medrol for same, along with hypertension, COPD , mild reflux, mild anxiety and depression, without suicidal or homicidal ideation, and type I diabetes mellitus, who presents to the emergency room for evaluation of above complaints. Patient has been discussed with emergency room physician who evaluated the patient. She describes a 4 hour history of slowly progressive swelling of her right lower extremity, with associated aching and throbbing pain, worsening with ambulation. Also describes onset earlier the day of admission of worsening of her chronic shortness of breath. She normally is on 3 L oxygen per nasal cannula at night. No sleep apnea. Venous Doppler study revealed extensive right lower extremity DVT. No prior history of same. There has been no recent restriction in her mobility, including surgery, or long trip with prolonged immobilization. Denies fever chills, nausea vomiting, diarrhea or dysuria, chest or abdominal pain. Vital signs have been stable. Laboratory results are listed in [employer] and are reviewed. X-ray summary results are listed below, with full report(s) reviewed. . EKG reviewed. Social history/personal habits: Single. No children. Recently unemployed. No tobacco use for 2 years. No illicit drug use for 2 years. Drinks alcohol only on her birthday. Allergies/adverse reactions NKDA. Home medications Home medications initially autopopulated into [employer] may not accurately reflect patient's true medications, dosages, and/or frequencies. scientific technical writer to reconcile medications. Patient has brought in a hand written list of her medications. REVIEW OF SYSTEMS: Constitutional: No fever or chills. Eyes: Wears glasses. ENT: No swallowing problems or complaints. No hearing problems or complaints. Pulmonary: See history and present illness. Cardiovascular: No current complaints, including chest pain. Gastrointestinal: No current complaints, including nausea or vomiting. Skin: No current complaints, including rashes. Hematologic: Easy bruising. Neurologic: No current complaints, including numbness or tingling. Musculoskeletal: Joint pain, without specific diagnosis of arthritis.. See history and present illness. Psychiatric: Mild Anxiety depression; denies suicidal or homicidal ideation. Endocrine: No current complaints, including polyuria. Genitourinary: No current complaints, including dysuria. 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 5 feet 2 inches tall. 82.1 kg. Blood pressure 121/75. Pulse 111 and regular. 94% saturation on 3 L oxygen per nasal cannula. Respirations are 22 and unlabored. Temperature 97.9. Somewhat obese otherwise well-nourished well-developed female appearing approximately her stated age. Pleasant awake alert and cooperative. No obvious distress other than somewhat anxious. Skin is warm and dry. No grossly obvious evidence of rash in areas of skin examined. No subcutaneous nodules palpated. ENT: Hearing grossly normal to normal conversation. Tongue midline on protrusion pink and slightly moist. Eyes: No scleral icterus. Pupils equal and reactive to light at 4 mm. Crisman conjunctivae. Neck is supple and nontender to gentle active range of motion and palpation. Midline trachea. No palpable thyroid nodule mass enlargement or tenderness. Lymphatic: No palpable cervical or clavicular nodes. Neck and lymphatic exams limited by patient body habitus. Psychiatric: Reasonable insight into acute and chronic medical issues. Oriented to time location and why here. Lungs: Auscultation reveals clear and equal breath sounds bilaterally. No use of accessory respiratory muscles. Cardiovascular: Heart regular rate and rhythm, without gallop murmur or rub. No carotid or abdominal aortic bruits. No left ankle or pedal edema. Faintly palpable dorsalis pedis pulses. She has diffuse right lower extremity swelling , thigh through feet. Mildly tender to palpation. No palpable venous cord. Abdomen: soft, somewhat obese, nontender with positive bowel sounds. Unable to adequately evaluate abdomen for masses or organomegaly due to body habitus. Extremities: Feet are warm and dry. No left calf tenderness to compression. No grossly obvious visual evidence of left calf swelling. Gentle manipulation of lower extremities fails to reveal any obvious evidence of injury or instability to knees hips or ankles, though somewhat restricted range of motion , right lower extremity, due to the swelling.. Neurologic: Moves upper extremities grossly normally. Patellar reflexes absent. Absent Babinski. Light touch is intact at feet. Dorsiflexion and plantarflexion of feet 5 / 5 and symmetric. Past Medical History Cardiac Medical History: Reports: DVT - Diagnosed 01/18/2017., Hypertension, Heart Murmur Denies: Congestive Heart Failure, Myocardial Infarction, Hyperlipidema, Pulmonary Embolism Pulmonary Medical History: Reports: Chronic Obstructive Pulmonary Disease (COPD) , Pneumonia Denies: Sleep Apnea EENT Medical History: Reports: Eyes - Glasses Denies: Ears, Throat Neurological Medical History: Denies: Hemorrhagic CVA, Ischemic CVA, Seizures Endocrine Medical History: Reports: Diabetes Mellitus Type 1 Denies: Diabetes Mellitus Type 2, Hyperthyroidism, Hypothyroidism Renal/ Medical History: Reports: None GI Medical History: Reports: Gastroesophageal Reflux Disease Denies: Cirrhosis, Hepatitis, Peptic Ulcer Disease Musculoskeltal Medical History: Reports: Arthritis - Joint pain, without specific diagnosis of arthritis. Skin Medical History: Reports: None Psychiatric Medical History: Reports: Depression, General Anxiety Disorder Denies: Alcohol Dependency, Substance Abuse, Tobacco Dependency Hematology: Reports: Other - Easy bruising Infectious Medical History: Denies: Clostridium Difficile, Hepatitis B, Hepatitis C, Methicillin- Resistant Staph Aureus Past Surgical History Past Surgical History: Reports: Orthopedic Surgery - Carpal tunnel release., Other - Lung biopsy, revealing benign nodules. Social History Information Source: Patient, Emergency Med Personnel, [facility] Records Lives with: Alone Smoking Status: Former Smoker - Quit 2 years ago Frequency of Alcohol Use: Rare Drugs: None Hx Prescription Drug Abuse: No - Advance Directive Resuscitation Status: Full Code Surrogate healthcare decision maker:: Her friend Catherine Ruelas Family History Family History: CAD, DM, Hypertension Parental Family History Reviewed: Yes - Mother of cancer. Father's health status unknown. Children Family History Reviewed: NA Sibling(s) Family History Reviewed.: Yes - Sister of complications diabetes mellitus. Medication/Allergy Home Medications: Albuterol Sulfate [Albuterol Sulfate 2.5mg/3 mL] 1 vial IH RTQ4HP PRN 01/19/17 Budesonide/Formoterol Fumarate [Symbicort HFA 160-4.5 mcg Inhaler 6 gm] 2 puff IH Q12 01/19/17 Calcium Carbonate/Vitamin D3 [Calcium 500-Vit D3 200 Tablet] 1 tab PO DAILY Insulin Glargine,Hum.rec.anlog [Lantus Insulin 100 Unit/1 ml 10 ml] 10 unit SUBCUT QHS 01/19/17 Ipratropium [place] [Atrovent 0.02% Neb 0.5 mg/2.5 ml Ampul] 0.5 mg IH RTQ4HP PRN 01/19/17 Ipratropium/Albuterol Sulfate [Combivent Inhaler] 1 puff IH QIDP PRN 01/19/17 Nifedipine [Nifedipine ER] 60 mg PO DAILY 01/19/17 Omeprazole 40 mg PO DAILY 01/19/17 Paroxetine HCl [Paxil 20 mg Tablet] 10 mg PO QHS 01/19/17 Rivaroxaban [Xarelto 15 mg Tablet] 15 mg PO BIDBS #41 tablet 01/21/17 Allergies/Adverse Reactions: No Known Drug Allergies Allergy (Verified 11/12/16 00:27) mosquito bites Allergy (Severe, Uncoded 11/12/16 00:27) Anaphylaxis Physical Exam Vital Signs: Temp Pulse Resp BP Pulse Ox 97.9 F 117 H 24 H 121/75 90 L 01/18/17 18:35 01/18/17 18:35 01/18/17 23:01 01/18/17 23:01 01/18/17 23:01 Results Impressions: Chest X-Ray 01/18/17 19:28 IMPRESSION: NO SIGNIFICANT RADIOGRAPHIC FINDING IN THE CHEST. Assessment & Plan - Diagnosis (1) Abnormal urinalysis Is this a current diagnosis for this admission?: YesPlan: Urine culture. With no symptoms of dysuria, will forego antibiotics at this point in time. (2) Anticoagulated Is this a current diagnosis for this admission?: YesPlan: Systemic anticoagulation recommended to patient. Patient understands the risks of systemic anti-coagulation to include but not be limited to internal bleeding , which can take the form of GI tract and/or intracranial hemorrhage, the latter of which can result in or stroke with permanent paralysis. Patient has no absolute contraindication to systemic anticoagulation. Above discussed in lay person's terms. Patient agrees to undergo systemic anticoagulation. (3) DVT (deep venous thrombosis) Qualifiers: DVT location: lower extremity Laterality: right Chronicity: acute Is this a current diagnosis for this admission?: YesPlan: Systemic anticoagulation with heparin drip to be continued; started in the emergency room by emergency room physician. Hematology consult. I have strongly encouraged patient not to get out of bed without notifying staff, to avoid a fall with injury. Knee high SCDs; with patient on systemic anticoagulation, no need for Lovenox or heparin at this point in time. Impression and plans were discussed with patient, who concurs. Time spent in evaluation and management of patient: 65 minutes. (4) SOB (shortness of breath) Is this a current diagnosis for this admission?: YesPlan: Likely just due to underlying COPD, but due to concerns for pulmonary emboli, will proceed with ventilation perfusion lung scan. (5) Diabetes mellitus type 1 Qualifiers: Diabetes mellitus complication status: without complication Qualified Code(s): E10.9 - Type 1 diabetes mellitus without complications Is this a current diagnosis for this admission?: YesPlan: Cardiac diabetic diet. Accu-Cheks with appropriate sliding scale coverage.Resume home medications as appropriate once these have been determined and reviewed. (6) COPD (chronic obstructive pulmonary disease) Qualifiers: COPD type: unspecified COPD Qualified Code(s): J44.9 - Chronic obstructive pulmonary disease, unspecified Is this a current diagnosis for this admission?: YesPlan: Resume home medications as appropriate once these have been determined and reviewed. (7) Hypertension Qualifiers: Hypertension type: essential hypertension Qualified Code(s): I10 - Essential (primary) hypertension Is this a current diagnosis for this admission?: YesPlan: Resume home medications as appropriate once these have been determined and reviewed.
[2017-01-19] MEDS ORDERED: INSULIN GLARGINE,HUM.REC.ANLOG 1,000 UNIT/10 ML UNIT SUBCUT ONE (02:45)
[2017-01-19] MEDS ORDERED: PAROXETINE HCL 20 MG TABLET PO SCH ×2 (03:11→22:00)
[2017-01-19 07:34] LABS: ABSOLUTE BASOPHILS # (AUTO) 0.1 10^3/uL (0.0-0.2); ABSOLUTE EOSINOPHILS # (AUTO) 0.3 10^3/uL (0.0-0.6); ABSOLUTE LYMPHOCYTES (AUTO) 2.2 10^3/uL (0.5-4.7); ABSOLUTE MONOCYTES (AUTO) 0.6 10^3/uL (0.1-1.4); ABSOLUTE NEUT (AUTO) 6.9 10^3/uL (1.7-8.2); BASOPHILS % (AUTO) 1.1 % (0-2); EOSINOPHILS % (AUTO) 2.9 % (0-6); HEMATOCRIT 37.4 % (36.0-47.0); HEMOGLOBIN 12.5 g/dL (12.0-15.5); HGB HCT DIFFERENCE 0.1; LYMPHOCYTES % (AUTO) 21.8 % (13-45); MEAN CORPUSCULAR HEMOGLOBIN 29.4 pg (27.0-33.4); MEAN CORPUSCULAR HGB CONC 33.4 g/dL (32.0-36.0); MEAN CORPUSCULAR VOLUME 88 fl (80-97); MONOCYTES % (AUTO) 6.4 % (3-13); RED BLOOD COUNT 4.26 10^6/uL (3.72-5.28); RED CELL DISTRIBUTION WIDTH 14.6 % (11.5-14.0); SEGMENTED NEUTROPHILS % (AUTO) 67.8 % (42-78); WHITE BLOOD COUNT 10.1 10^3/uL (4.0-10.5)
[2017-01-19 07:52] LABS: ANION GAP 12 (5-19); BLOOD UREA NITROGEN 33 mg/dL (7-20); CALCIUM 9.5 mg/dL (8.4-10.2); CARBON DIOXIDE 27 mmol/L (22-30); CHLORIDE 98 mmol/L (98-107); CREATININE RESULT 0.96 mg/dL (0.52-1.25); GLUCOSE 334 mg/dL (75-110); POTASSIUM 4.1 mmol/L (3.6-5.0); SODIUM 136.8 mmol/L (137-145)
--- NOTE | 2017-01-19 08:54 | Physician Advisory Note ---
Physician Advisor ProgressNote .: Pursuant to the plan for [facility], I have reviewed the medical record for this patient. Physician Advisor Statement: Possible documentation opportunities if attending agrees: 1. "chronic hypoxemic resp failure requiring 3L O2 at night" 2. "Medical necessity" - please see below under "Status". 3. "SIRS, present on arrival, most likely due to " 4. "Acute hyponatremia, mild, suspect due to " [intravascular volume depletion?] As always, if concerned about any unstable VS or abnormal labs, please comment on them - what bad things they might indicate, why they concern you - & note what doing about them. Please also document each day the potential clinical problems you are concerned could occur if pt not kept in hospital for tx at this time. (These points are mac - if present in each note, attending's status decision should be sufficiently supported.) Discussion: 61yo female w/ chronic co-morbidities including DM-1, COPD w/chr hypoxemic resp failure needing 3L O2 @night, GERD, HTN, easy bruising, chr medroxyprogesterone tx for endometriosis - presented 5 PM to ED w/acute RLE edema/pain, found to have DVT (+) HR 111, RR 22-24, BP 121/75, Sat 94% on 3L, WBC 13.6, Na 136.5, BUN 26, glc 258, Ca 10.3. ED gave 2 nebs, began IV heparin. Attending ordered IV heparin, V/Q scan, Duonebs prn, tele, falls precautions, I/ Os, q4h VS, hemoccult, hematology consult, repeat U/A, ur cx, CBC for 01/20 Status: Appropriate to come in as Outpt Obs initially for further eval of SOB w/V/Q scan , & for IV heparin & hem consult. If after hem consult, pt is unable to safely be d/c'd today, please document reasons that continued tx & monitoring in inpatient hospital setting are medically reasonable & necessary to protect pt's health, safety, & medical condition (VS not stable, continuing to need IV heparin rather than SQ Lovenox or other option that can be managed outpt because ____, ...). Thanks for your help with documentation accuracy/specificity improvement! Reta Olivo MD [facility] Physician Advisor, Fellow of [facility] Medicine
[2017-01-19] MEDS: DOCUSATE SODIUM 100 MG CAPSULE PO SCH ×2 (09:59→17:33)
[2017-01-19] MEDS: INSULIN LISPRO 100 UNIT/ML 3 ML VIAL SUBCUT PRN ×3 (09:59→21:03)
[2017-01-19] MEDS: NIFEDIPINE 30 MG TAB.ER.24 PO SCH ×2 (09:59→13:06)
[2017-01-19] MEDS ORDERED: (PENDING PHARMACY ID) (Nifedipine [Nifedipine Er] 60 MG) PO SCH ×2 (10:00→10:15)
[2017-01-19] MEDS ORDERED: BUDESONIDE/FORMOTEROL 160-4.5 MCG 60 PUFF/6 GM MDI IH SCH (10:00)
[2017-01-19] MEDS: HEPARIN SODIUM,PORCINE/D5W 25,000 UNIT/250 ML RTUINJ IV PRN (13:03)
[2017-01-19] MEDS: LANSOPRAZOLE 30 MG TAB.RAP.DR PO SCH (13:07)
[2017-01-19] MEDS: ACETAMINOPHEN 325 MG TABLET PO PRN ×2 (13:08→20:50)
[2017-01-19] MEDS: BUDESONIDE/FORMOTEROL 160-4.5 MCG 60 PUFF/6 GM MDI IH SCH (20:49)
[2017-01-19] MEDS: PAROXETINE HCL 20 MG TABLET PO SCH (20:50)
[2017-01-19] MEDS: INSULIN GLARGINE,HUM.REC.ANLOG 300 UNIT/3 ML INSULN.PEN SUBCUT SCH (21:03)
[2017-01-19] MEDS ORDERED: INSULIN GLARGINE,HUM.REC.ANLOG 1,000 UNIT/10 ML UNIT SUBCUT SCH ×2 (22:00)
[2017-01-20] MEDS ORDERED: HEPARIN SOD (PORCINE) 1,000 UNIT/ML 10 ML VIAL ONE (09:39)
[2017-01-20] MEDS: DOCUSATE SODIUM 100 MG CAPSULE PO SCH ×2 (10:00→18:00)
[2017-01-20] MEDS: NIFEDIPINE 30 MG TAB.ER.24 PO SCH ×2 (10:00→12:00)
[2017-01-20] MEDS: BUDESONIDE/FORMOTEROL 160-4.5 MCG 60 PUFF/6 GM MDI IH SCH ×2 (10:00→21:32)
[2017-01-20] MEDS: LANSOPRAZOLE 30 MG TAB.RAP.DR PO SCH (12:00)
--- NOTE | 2017-01-20 16:37 | PROGRESS NOTE E ---
Progress Note NAME: ISI SESAY : 1955 AGE: 61Y DATE: 01/20/2017 ROOM: 426 SUBJECTIVE: The patient is lying in bed. She states that the pain in her right lower extremity is improved in comparison to yesterday. Redness does appear improved. The patient denies any nausea, vomiting, diarrhea, shortness of breath, dizziness or chest pain. No fevers or chills. The patient has been afebrile. Blood pressure has been in a good range. The patient does not voice any other concerns at this time. REVIEW OF SYSTEMS: The rest of the review of systems is negative. MEDICATIONS: Medications have been reviewed. OBJECTIVE: GENERAL: The patient is a 61-year-old female who is awake, alert, and oriented to person, place, time and situation. She is verbal, conversational, ambulatory. She does not appear to be in any acute distress. VITAL SIGNS: Temperature is 98.2, pulse 71, respirations 17, blood pressure 121/76, and oxygen saturation is 91% on room air. SKIN: Warm and dry. No rash, not diaphoretic. HEENT: Pupils are equal, round and reactive to light and accommodation. Conjunctivae are pink. No evidence of JVD. CARDIOVASCULAR: Heart is regular, is no murmur or rub. CHEST: Clear, symmetrical, unlabored. ABDOMEN: Soft, nontender, nondistended. BACK: No CVA tenderness or sacral edema. EXTREMITIES: No clubbing, cyanosis, edema. Right lower extremity erythema has improved, dehairing machine tender to the touch. PSYCHIATRIC: Appropriate affect, pleasant mood. NEUROLOGIC: Intact. DIAGNOSTICS: Lab values are as follows. Hematology obtained on 01/20/2017: WBC is 9.6, hemoglobin is 13.4, hematocrit is 40.8, platelet count is 302,000. IMPRESSION AND PLAN: 1. ACUTE DVT OF THE RIGHT LOWER EXTREMITY. The patient does remain on heparin drip at this time. Currently awaiting Hematology input with this. The patient's Depo-Provera is on hold. Will follow. The patient can ambulate today given that she has been therapeutic on heparin for 24 hours. 2. DVT PROPHYLAXIS. The patient is on heparin drip. 3. DIABETES MELLITUS, TYPE 2. Will continue sliding-scale coverage and the patient's home medications. 4. HYPERTENSION. Blood pressures have been in a good range. Will continue current medications. DISPOSITION: THE PATIENT IS A FULL CODE. Pending the patient's symptomatology and diagnostic findings, will re-evaluate in the a.m. Time spent on this followup, including assessment/plan, physical examination, and patient education, is 25 minutes. DICTATING PHYSICIAN: LAWRENCE CLANCY NP [id number] PHY#: [id number] ID: [id number] JOB#: [id number] ACCT: [id number] cc: >
[2017-01-20] MEDS: PAROXETINE HCL 20 MG TABLET PO SCH (21:32)
[2017-01-20] MEDS: INSULIN GLARGINE,HUM.REC.ANLOG 300 UNIT/3 ML INSULN.PEN SUBCUT SCH (21:51)
[2017-01-20] MEDS: INSULIN LISPRO 100 UNIT/ML 3 ML VIAL SUBCUT PRN (21:51)
[2017-01-20] MEDS: ACETAMINOPHEN 325 MG TABLET PO PRN (21:51)
[2017-01-20 22:03] LABS: APPEARANCE,URINE CLEAR; BILIRUBIN,URINE NEGATIVE (NEGATIVE); GLUCOSE, URINE >=500 mg/dL (NEGATIVE); KETONES,URINE NEGATIVE (NEGATIVE); LEUKOCYTE ESTERASE,URINE NEGATIVE (NEGATIVE); NITRITE,URINE NEGATIVE (NEGATIVE); PROTEIN,URINE NEGATIVE (NEGATIVE); URINE SPECIFIC GRAVITY 1.024; UROBILINOGEN,URINE NEGATIVE mg/dL (<2.0)
[2017-01-20] MEDS: HEPARIN SODIUM,PORCINE/D5W 25,000 UNIT/250 ML RTUINJ IV PRN (22:25)
[2017-01-21 07:59] LABS: HEMATOCRIT 40.8 % (36.0-47.0); HEMOGLOBIN 13.4 g/dL (12.0-15.5); HGB HCT DIFFERENCE -0.6; MEAN CORPUSCULAR HEMOGLOBIN 28.5 pg (27.0-33.4); MEAN CORPUSCULAR HGB CONC 32.8 g/dL (32.0-36.0); MEAN CORPUSCULAR VOLUME 87 fl (80-97); RED BLOOD COUNT 4.69 10^6/uL (3.72-5.28); RED CELL DISTRIBUTION WIDTH 14.3 % (11.5-14.0); WHITE BLOOD COUNT 9.6 10^3/uL (4.0-10.5)
[2017-01-21] MEDS ORDERED: CALCIUM CARBONATE 250 MG/VITAMIN D3 125 UNIT TABLET PO SCH ×2 (09:30→10:00)
[2017-01-21] MEDS: DOCUSATE SODIUM 100 MG CAPSULE PO SCH (09:33)
[2017-01-21] MEDS: NIFEDIPINE 30 MG TAB.ER.24 PO SCH (09:33)
[2017-01-21] MEDS: BUDESONIDE/FORMOTEROL 160-4.5 MCG 60 PUFF/6 GM MDI IH SCH (09:33)
[2017-01-21] MEDS ORDERED: RIVAROXABAN 15 MG TABLET PO ONE (10:30)
[2017-01-21 10:51] VITALS: BP 116/84
[2017-01-21 11:52] LABS: PARTIAL THROMBOPLASTIN TIME 49.7 SEC (23.5-35.8); PROTHROMBIN TIME 12.7 SEC (11.4-15.4)
--- NOTE | 2017-01-21 14:09 | PDOC CONSULTATION ---
Consultation Consult Date: 01/21/17 Consult reason:: DVT History of Present Illness Admission Date/PCP: 01/19/17 16:53 History of Present Illness: ISI SESAY is a 61 year old female with underlying endometriosis, on long-term Depo-Medrol for > 18 years, along with hypertension , COPD, mild reflux, mild anxiety and depression, without suicidal or homicidal ideation type I diabetes mellitus, prior tobacco abuse who presents to the emergency room for RLE edema with US + for DVT. Patient has been discussed with emergency room physician who evaluated the patient. She describes a 4 hour history of slowly progressive swelling of her right lower extremity with associated aching and throbbing pain, worsening with ambulation. Also describes onset earlier the day of admission of worsening of her chronic shortness of breath. She is on 3 L oxygen per nasal cannula at night. No sleep apnea. Venous Doppler study revealed extensive right lower extremity DVT. No prior history of same or family history. There has been no recent restriction in her mobility, including surgery, or long trip with prolonged immobilization. She was started on IV heparin and some slight improvement of the edema only. Past Medical History Cardiac Medical History: Reports: DVT - Diagnosed 01/18/2017., Hypertension, Heart Murmur Denies: Congestive Heart Failure, Myocardial Infarction, Hyperlipidema, Pulmonary Embolism Pulmonary Medical History: Reports: Chronic Obstructive Pulmonary Disease (COPD) , Pneumonia Denies: Sleep Apnea EENT Medical History: Reports: Eyes - Glasses, Other - Easy bruising Denies: Ears, Throat Neurological Medical History: Denies: Hemorrhagic CVA, Ischemic CVA, Seizures Endocrine Medical History: Reports: Diabetes Mellitus Type 1 Denies: Diabetes Mellitus Type 2, Hyperthyroidism, Hypothyroidism Renal/ Medical History: Reports: None GI Medical History: Reports: Gastroesophageal Reflux Disease Denies: Cirrhosis, Hepatitis, Peptic Ulcer Disease Musculoskeltal Medical History: Reports: Arthritis - Joint pain, without specific diagnosis of arthritis. Skin Medical History: Reports: None Psychiatric Medical History: Reports: Depression, General Anxiety Disorder Denies: Alcohol Dependency, Substance Abuse, Tobacco Dependency Hematology: Reports: Other - Easy bruising Infectious Medical History: Denies: Clostridium Difficile, Hepatitis B, Hepatitis C, Methicillin- Resistant Staph Aureus Past Surgical History Past Surgical History: Reports: Orthopedic Surgery - Carpal tunnel release., Other - Lung biopsy, revealing benign nodules. Social History Lives with: Alone Smoking Status: Former Smoker Frequency of Alcohol Use: Rare Hx Recreational Drug Use: Yes Drugs: None Hx Prescription Drug Abuse: No - Advance Directive Resuscitation Status: Full Code Family History Family History: CAD, DM, Hypertension Parental Family History Reviewed: Yes Children Family History Reviewed: Yes Sibling(s) Family History Reviewed.: Yes Medication/Allergy Home Medications: Albuterol Sulfate [Albuterol Sulfate 2.5mg/3 mL] 1 vial IH RTQ4HP PRN 01/19/17 Budesonide/Formoterol Fumarate [Symbicort HFA 160-4.5 mcg Inhaler 6 gm] 2 puff IH Q12 01/19/17 Calcium Carbonate/Vitamin D3 [Calcium 500-Vit D3 200 Tablet] 1 tab PO DAILY Insulin Glargine,Hum.rec.anlog [Lantus Insulin 100 Unit/1 ml 10 ml] 10 unit SUBCUT QHS 01/19/17 Ipratropium Harviell [Atrovent 0.02% Neb 0.5 mg/2.5 ml Ampul] 0.5 mg IH RTQ4HP PRN 01/19/17 Ipratropium/Albuterol Sulfate [Combivent Inhaler] 1 puff IH QIDP PRN 01/19/17 Nifedipine [Nifedipine ER] 60 mg PO DAILY 01/19/17 Omeprazole 40 mg PO DAILY 01/19/17 Paroxetine HCl [Paxil 20 mg Tablet] 10 mg PO QHS 01/19/17 Rivaroxaban [Xarelto 15 mg Tablet] 15 mg PO BIDBS #41 tablet 01/21/17 Allergies/Adverse Reactions: No Known Drug Allergies Allergy (Verified 11/12/16 00:27) mosquito bites Allergy (Severe, Uncoded 11/12/16 00:27) Anaphylaxis Review of Systems Constitutional: PRESENT: as per HPI Psychiatric: PRESENT: other - Has emotional lability off of her Depo Physical Exam Vital Signs: Temp Pulse Resp BP Pulse Ox 97.9 F 81 18 116/84 95 01/21/17 10:46 01/21/17 10:46 01/21/17 10:46 01/21/17 10:46 01/21/17 10:46 Intake & Output 01/20/17 01/21/17 01/22/17 06:59 06:59 06:59 Intake Total 970 1000 Balance 970 1000 Weight 81.7 kg General appearance: PRESENT: no acute distress Head exam: PRESENT: atraumatic, normocephalic Eye exam: PRESENT: EOMI, PERRLA Ear exam: PRESENT: normal external ear exam Mouth exam: PRESENT: tongue midline Respiratory exam: PRESENT: clear to auscultation taurus Cardiovascular exam: PRESENT: RRR Extremities exam: PRESENT: +2 edema - of the RLE Neurological exam: PRESENT: awake, oriented to place, oriented to time, oriented to situation, CN II-XII grossly intact Results Laboratory Results: 01/20/17 05:19 01/20/17 01/20/17 05:19 21:45 WBC 9.6 RBC 4.69 Hgb 13.4 Hct 40.8 MCV 87 MCH 28.5 MCHC 32.8 RDW 14.3 H Plt Count 302 Urine Color YELLOW Urine Appearance CLEAR Urine pH 6.0 Ur Specific [place] 1.024 Urine Protein NEGATIVE Urine Glucose (UA) >=500 H Urine Ketones NEGATIVE Urine Blood NEGATIVE Urine Nitrite NEGATIVE Ur Leukocyte Esterase NEGATIVE Urine WBC (Auto) 1 Urine RBC (Auto) 1 Impressions: Chest X-Ray 01/18/17 19:28 IMPRESSION: NO SIGNIFICANT RADIOGRAPHIC FINDING IN THE CHEST. Lung Scan-VQ NM 01/19/17 00:25 IMPRESSION: No evidence of pulmonary emboli. Assessment & Plan - Diagnosis (1) COPD (chronic obstructive pulmonary disease) Qualifiers: COPD type: unspecified COPD Qualified Code(s): J44.9 - Chronic obstructive pulmonary disease, unspecified Is this a current diagnosis for this admission?: YesPlan: Per primary today (2) DVT (deep venous thrombosis) Qualifiers: DVT location: lower extremity Laterality: right Chronicity: acute Is this a current diagnosis for this admission?: YesPlan: Change to Xarelto and discussed having to continue anticoagulation if remains on depo but would discuss options for lability with her PCP at the [place]. - Time Time Spent: 50 to 70 Minutes Critical Time spent with patient: 25-34 minutes Medications reviewed and adjusted accordingly: Yes Anticipated discharge: Home Within: within 24 hours
[2017-01-21 14:13] LABS: APPEARANCE,URINE CLEAR; BILIRUBIN,URINE NEGATIVE (NEGATIVE); GLUCOSE, URINE >=500 mg/dL (NEGATIVE); KETONES,URINE NEGATIVE (NEGATIVE); LEUKOCYTE ESTERASE,URINE NEGATIVE (NEGATIVE); NITRITE,URINE NEGATIVE (NEGATIVE); PROTEIN,URINE NEGATIVE (NEGATIVE); URINE SPECIFIC GRAVITY 1.017; UROBILINOGEN,URINE NEGATIVE mg/dL (<2.0)
[2017-01-21] MEDS ORDERED: RIVAROXABAN 15 MG TABLET PO SCH (17:00)
--- NOTE | 2017-01-21 21:18 | DISCHARGE SUMMARY E ---
Discharge Summary NAME: ISI SESAY : 1955 AGE: 61Y ADMITTED: 01/19/2017 DISCHARGED: 01/21/2017 PRIMARY CARE PROVIDER: LISA. CONSULTING TRACK GREASER: Dr. Yara Sage. DISCHARGE DIAGNOSES: 1. Right lower extremity DVT. 2. Endometriosis. 3. Long-term Depo-Medrol. 4. Hypertension. 5. Chronic obstructive pulmonary disease. 6. Gastroesophageal reflux disease. 7. Mild anxiety and depression without suicidal or homicidal ideation. 8. Diabetes mellitus type 2. DISCHARGE MEDICATIONS: 1. Xarelto 15 mg p.o. b.i.d. 41 tablets, 0 refills, then next tapered dose. 2. Albuterol sulfate 2.5 mg 1 neb q.4 h. p.r.n. 3. Symbicort 2 puff inhalation q.12 h. 4. Calcium plus vitamin D 1 tablet p.o. daily. 5. Lantus 10 units subcutaneous every hour of sleep. 6. Atrovent 5 mg inhalation q.4 h. p.r.n. 7. Combivent 1 puff inhalation q.i.d. p.r.n. 8. Procardia 50 mg p.o. daily. 9. Omeprazole 40 mg p.o. daily. 10. Paxil 2 mg p.o. every hour of sleep. DIET: Diabetic. ACTIVITY: As tolerated. HISTORY OF PRESENT ILLNESS: The patient is a 61-year-old female with a past medical history of endometriosis, which by patient's history is treated with Depo-Provera. The patient presented to the emergency department with a chief complaint of swelling and pain of her right lower extremity. The patient noted that 4 hours prior to presentation, she had a sudden onset of aching, burning, throbbing pain as well as redness. The patient described also a worsening of her chronic shortness of breath. The patient is on 3 L nasal cannula at nighttime but denied any history of sleep apnea. The patient's venous Doppler revealed an extensive right lower extremity DVT. The patient denied any restriction in her mobility including surgery or long trips requiring prolonged immobilization. The patient denied any fevers, chills, nausea, vomiting or diarrhea, no dysuria, chest pain or abdominal pain. The patient underwent a V/Q scan which revealed low probability for pulmonary embolism. The patient was anticoagulated with heparin and was referred to the hospitalist for admission and management. HOSPITAL COURSE: The patient was admitted to continuous telemetry unit. The patient was therapeutic on heparin for 48 hours. The patient was seen and evaluated by hematology and recommendations were made for Xarelto. This was discussed with the patient who was in agreeance with this plan. The patient will follow up with hematology on an outpatient basis. The patient's shortness of breath resolved and the patient's symptoms of lower extremity redness and pain did resolve. The patient's glucose was covered with sliding scale coverage, and the patient is quite eager for discharge. DIAGNOSTICS: Lab values are as follows: Hematology obtained on 01/20/2017: WBCs are 9.6, hemoglobin is 13.4, hematocrit 40.8, and platelet count is 382,000. Chemistry obtained on 01/19/2017: Sodium 136, potassium 4.1, chloride 108, carbon dioxide 25, BUN 33, creatinine 0.96, glucose 297, and calcium is 9.5. Urinalysis obtained on 01/20/2017: Color yellow, appearance clear, pH 6.0, specific gravity of 1.024, protein negative, glucose than 500, ketones negative, occult blood negative, nitrite negative, bilirubin negative, urobilinogen negative, leukocyte esterase negative, WBC 1, RBC 1. Other body sources obtained on 01/18/2017: Stool for occult blood is negative. Chest x-ray obtained on 01/18/2017 revealed no significant radiographic finding of the chest. Venous Doppler study obtained on 01/18/2017 revealed abnormal vessel filling enlargement of the femoral vein to the popliteal vein suggestive of extensive DVT of the right lower extremity. V/Q scan obtained on 01/18/2017 reveals no evidence of pulmonary emboli. EKG obtained on 01/18/2017 reveals tachycardia. PHYSICAL EXAMINATION: GENERAL: On examination, the patient is a well-developed, well-nourished 61-year-old female who is minimally responsive and does not appear to be in any acute distress. VITAL SIGNS: Temperature 97.9, pulse 81, respirations 18, blood pressure 116/84, oxygen saturation is 95%. SKIN: Warm and dry. No rash, not diaphoretic. HEENT: Pupils are equal, round, and reactive to light and accommodation. Conjunctivae is pink. NECK: There is no JVP. CARDIOVASCULAR: Heart is regular. There is no murmur or rub. CHEST: Clear to auscultation symmetrical and unlabored. ABDOMEN: Soft, nontender, nondistended. BACK: No CVA tenderness or sacral edema. EXTREMITIES: No clubbing, cyanosis or edema. PSYCHIATRIC: Appropriate affect and pleasant mood. DISCHARGE PLANNIN. The patient is advised to follow up with primary care provider within 1 to 2 weeks for hospital followup. 2. The patient is to follow up with Dr. Yara Sage within 2-3 weeks for hospital followup. Time spent on this discharge including assessment and plan, physical examination, patient education and specialty collaboration is 25 minutes. DICTATING PHYSICIAN: LAWRENCE CLANCY NP [id number] PHY#: [id number] ID: [id number] JOB#: [id number] ACCT: [id number] cc:LAWRENCE CLANCY NP, FRANCIS M.D. >
== END 2017-01-21 10:52 | disposition home or self-care (01) | DRG 300 ==
LOC: ER 18:23 → UNDOADMOB 22:47 → EH 22:47 → 4S 01-19 02:18 → OBSVTOIN 01-19 16:53
PROVIDERS: ADMIT Family Medicine; ATTEND Family Medicine
PROC: 3E0F73Z Introduction of Anti-inflammatory into Respiratory Tract, Via Natural or Artificial Opening (ICD-10-PCS; principal; 2017-01-19)
DX: I82.401 Acute embolism and thrombosis of unspecified deep veins of right lower extremity (principal); J44.1 Chronic obstructive pulmonary disease with (acute) exacerbation; N80.9 Endometriosis, unspecified; K21.9 Gastro-esophageal reflux disease without esophagitis; F32.9 Major depressive disorder, single episode, unspecified; F41.1 Generalized anxiety disorder; E11.9 Type 2 diabetes mellitus without complications; R01.1 Cardiac murmur, unspecified; M19.90 Unspecified osteoarthritis, unspecified site; I11.0 Hypertensive heart disease with heart failure; I50.9 Heart failure, unspecified; Z99.81 Dependence on supplemental oxygen; Z79.51 Long term (current) use of inhaled steroids; Z79.4 Long term (current) use of insulin; Z79.899 Other long term (current) drug therapy; Z87.891 Personal history of nicotine dependence; Z86.718 Personal history of other venous thrombosis and embolism; Z60.2 Problems related to living alone; Z91.038 Other insect allergy status; Z83.3 Family history of diabetes mellitus; Z82.49 Family history of ischemic heart disease and other diseases of the circulatory system; Z80.9 Family history of malignant neoplasm, unspecified
CPT/HCPCS: 36415; 71020; 78582; 80048; 80053; 81001; 82272; 82962; 85025; 85027; 85610; 85730; 87086; 93005; 93010; 93971; 94640; 96365; 96366; 96376; 99291; A9540; A9567; G0378; J1644; J1815; J3490; J7620; Q9969

== ENCOUNTER → 2017-06-01 | Outpatient (CLI) | payer OTHER ==
[~2017-06-01] MED LIST: ALBUTEROL SULFATE 0.083% NEB 2.5 MG/3 ML AMPUL NEB ONE
--- NOTE | 2017-06-02 09:19 | PULMONARY FUNCTION TEST ---
DATE OF SERVICE: 06/01/2017 THE VITAL CAPACITY IS SLIGHTLY DECREASED. THE EXPIRATORY FLOW RATES ARE SEVERELY DECREASED. THE FEV1/VC IS 47%, PREDICTED: 84% THE DLCO IS 12.8, 62% OF PREDICTED. AFTER BRONCHODILATOR, EXPIRATORY FLOW RATES SHOW NO SIGNIFICANT CHANGE. IMPRESSION: GOOD PATIENT EFFORT. SEVERE OBSTRUCTIVE DEFECT DIFFUSING CAPACITY IS MODERATELY DECREASED. CC: VALDEZ RADER MD > [facility]
== END ==
LOC: RT 11:51
PROVIDERS: ATTEND General Practice
DX: J44.9 Chronic obstructive pulmonary disease, unspecified (principal)
CPT/HCPCS: 94060; 94729

== ENCOUNTER 2017-08-23 11:09 | Inpatient (IN) | payer OTHER, MEDICAID ==
[2017-08-23] MEDS ORDERED: IPRATROPIUM/ALBUTEROL 0.5-2.5 MG/3 ML AMPUL NEB ONE ×3 (11:45→13:59)
[2017-08-23] MEDS ORDERED: METHYLPREDNISOLONE INJ 125 MG/2 ML SDV IV ONE (11:45)
[2017-08-23 11:56] LABS: ABSOLUTE BASOPHILS # (AUTO) 0.1 10^3/uL (0.0-0.2); ABSOLUTE LYMPHOCYTES (AUTO) 1.1 10^3/uL (0.5-4.7); ABSOLUTE MONOCYTES (AUTO) 0.4 10^3/uL (0.1-1.4); ABSOLUTE NEUT (AUTO) 8.1 10^3/uL (1.7-8.2); BASOPHILS % (AUTO) 0.6 % (0-2); EOSINOPHILS % (AUTO) 0.4 % (0-6); HEMATOCRIT 43.7 % (36.0-47.0); HGB HCT DIFFERENCE -1.7; LYMPHOCYTES % (AUTO) 11.2 % (13-45); MEAN CORPUSCULAR HEMOGLOBIN 29.6 pg (27.0-33.4); MEAN CORPUSCULAR VOLUME 93 fl (80-97); MONOCYTES % (AUTO) 3.7 % (3-13); RED BLOOD COUNT 4.72 10^6/uL (3.72-5.28); SEGMENTED NEUTROPHILS % (AUTO) 84.1 % (42-78); WHITE BLOOD COUNT 9.6 10^3/uL (4.0-10.5)
[2017-08-23 12:02] LABS: PROTHROMBIN TIME 14.1 SEC (11.4-15.4)
--- NOTE | 2017-08-23 12:18 | RADIOLOGY REPORT (SQ) ---
EXAM DESCRIPTION: CHEST SINGLE VIEW COMPLETED DATE/TIME: 08/23/2017 11:55 am REASON FOR STUDY: sob on o2 COMPARISON: 01/18/2017 EXAM PARAMETERS: NUMBER OF VIEWS: One view. TECHNIQUE: Single frontal radiographic view of the chest acquired. RADIATION DOSE: NA LIMITATIONS: None. FINDINGS: LUNGS AND PLEURA: Mild pulmonary vascular congestion. No infiltrate or effusion. No mass MEDIASTINUM AND HILAR STRUCTURES: No masses. Contour normal. HEART AND VASCULAR STRUCTURES: Heart normal in size. Normal vasculature. BONES: No acute findings. HARDWARE: None in the chest. OTHER: No other significant finding. IMPRESSION: Mild pulmonary vascular congestion with no CHF. TECHNICAL DOCUMENTATION: JOB ID: [id number] [employer]- All Rights Reserved
[2017-08-23 12:29] LABS: ALANINE AMINOTRANSFERASE 42 U/L (9-52); ALKALINE PHOSPHATASE 81 U/L (38-126); ASPARTATE AMINO TRANSFERASE 19 U/L (14-36); BILIRUBIN,DIRECT 0.2 mg/dL (0.0-0.4); BILIRUBIN,TOTAL 0.8 mg/dL (0.2-1.3); BLOOD UREA NITROGEN 23 mg/dL (7-20); C-REACTIVE PROTEIN 23.8 mg/L (<10.0); CALCIUM 9.2 mg/dL (8.4-10.2); CHLORIDE 91 mmol/L (98-107); CREATINE KINASE 39 U/L (30-135); CREATININE RESULT 0.61 mg/dL (0.52-1.25); GLUCOSE 161 mg/dL (75-110); POTASSIUM 4.9 mmol/L (3.6-5.0); SODIUM 138.3 mmol/L (137-145); TOTAL PROTEIN 6.7 g/dL (6.3-8.2)
[2017-08-23 12:29] LABS: APPEARANCE,URINE SLIGHTLY-CLOUDY; BILIRUBIN,URINE NEGATIVE (NEGATIVE); GLUCOSE, URINE NEGATIVE (NEGATIVE); KETONES,URINE TRACE mg/dL (NEGATIVE); LEUKOCYTE ESTERASE,URINE TRACE (NEGATIVE); NITRITE,URINE NEGATIVE (NEGATIVE); PROTEIN,URINE 30 mg/dL (NEGATIVE); URINE SPECIFIC GRAVITY 1.023
[2017-08-23 12:36] LABS: ANION GAP 8 (5-19); CARBON DIOXIDE 39 mmol/L (22-30)
--- NOTE | 2017-08-23 12:57 | EKG REPORT ---
SEVERITY:- NORMAL ECG - SINUS RHYTHM : Confirmed by: Hiren Moseley MD 23-Aug-2017 12:56:27
--- NOTE | 2017-08-23 13:34 | ER Document Report ---
ED General - General Chief Complaint: COPD Exacerbation Stated Complaint: ISSUES WITH OXYGEN Time Seen by Provider: 08/23/17 11:24 Information source: Patient TRAVEL OUTSIDE OF THE [place] IN LAST 30 DAYS: No - HPI Context: 8-year-old female with a history of type 2 diabetes, hypertension, dyslipidemia , COPD, GERD, history of DVT and on Lovenox presents today with complaints of a COPD exacerbation. Patient is oxygen dependent at home, has been using 4 L nasal cannula and only maintaining oxygenation at 88-90%. Patient states has been extensiveness for the last 2 weeks. Denies any chest pain, nausea, vomiting, blurred vision, double vision, loss of vision, abdominal pain, vaginal pain or lower back pain. Reports some shortness of breath. Denies any recent trauma. Patient quit smoking in December 2014. - Related Data Allergies/Adverse Reactions: No Known Drug Allergies Allergy (Verified 08/23/17 11:16) mosquito bites Allergy (Severe, Uncoded 11/12/16 00:27) Anaphylaxis Past Medical History - General Information source: Patient - Social History Smoking Status: Former Smoker Chew tobacco use (# tins/day): No Frequency of alcohol use: None Drug Abuse: None Family History: CAD, DM, Hypertension Patient has suicidal ideation: No Patient has homicidal ideation: No - Past Medical History Cardiac Medical History: Reports: Hx DVT - Diagnosed 01/18/2017., Hx Hypertension, Hx Heart Murmur Denies: Hx Congestive Heart Failure, Hx Heart Attack, Hx Hypercholesterolemia , Hx Pulmonary Embolism Pulmonary Medical History: Reports: Hx COPD, Hx Pneumonia Denies: Hx Sleep Apnea Neurological Medical History: Denies: Hx Seizures Endocrine Medical History: Reports: Hx Diabetes Mellitus Type 1. Denies: Hx Diabetes Mellitus Type 2, Hx Hyperthyroidism, Hx Hypothyroidism Renal/ Medical History: Denies: Hx Peritoneal Dialysis GI Medical History: Reports: Hx Gastroesophageal Reflux Disease. Denies: Hx Cirrhosis, Hx Hepatitis Musculoskeltal Medical History: Reports Hx Arthritis - Joint pain, without specific diagnosis of arthritis. Psychiatric Medical History: Reports: Hx Depression Infectious Medical History: Denies: Hx C-Diff, Hx Hepatitis, Hx MRSA Past Surgical History: Reports: Hx Orthopedic Surgery - Carpal tunnel release., Other - Lung biopsy, revealing benign nodules. - Immunizations Hx Diphtheria, Pertussis, Tetanus Vaccination: Yes Hx Pneumococcal Vaccination: 01/01/15 Review of Systems - Review of Systems Constitutional: See HPI EENT: No symptoms reported Cardiovascular: No symptoms reported Respiratory: Cough, Short of breath Gastrointestinal: No symptoms reported Genitourinary: No symptoms reported Musculoskeletal: No symptoms reported Skin: No symptoms reported Neurological/Psychological: No symptoms reported Physical Exam - Vital signs Vitals: Resp Pulse Ox 19 79 L 08/23/17 11:28 08/23/17 11:28 - General General appearance: Appears well, Alert - HEENT Head: Normocephalic Pupils: PERRL External canal: Normal Tympanic membrane: Normal Sinus: Normal Mouth/Lips: Normal Mucous membranes: Normal Pharynx: Normal Neck: Normal - Cardiovascular Rhythm: Regular - Abdominal Distension: No distension Bowel sounds: Normal Tenderness: Nontender Organomegaly: No organomegaly - Neurological Neuro grossly intact: Yes Cognition: Normal - Skin Skin Temperature: Warm Skin Moisture: Dry Skin Color: Normal Course - Re-evaluation Re-evalutation: On reevaluation, patient stable on 4 L of nasal cannula with pulse ox at 90%. Consulted with Dr. Dodd at 1400, discussed case with BNP of 1420 along with pulmonary vascular congestion seen on chest x-ray. We will give 40 mg of Lasix IVP, start on Levaquin 500 milligrams IVP. Will admit to observation 08/23/17 14:12 - Vital Signs Vital signs: Temp Pulse Resp BP Pulse Ox 26 H 129/67 H 90 L 08/23/17 13:01 08/23/17 13:01 08/23/17 13:01 - Laboratory Result Diagrams: 08/23/17 11:40 08/23/17 11:40 Laboratory results interpreted by me: 08/23/17 08/23/17 08/23/17 11:40 11:40 11:40 RDW 15.0 H Seg Neutrophils % 84.1 H Lymphocytes % 11.2 L Chloride 91 L Carbon Dioxide 39 H BUN 23 H Glucose 161 H C-Reactive Protein 23.8 H NT-Pro-B Natriuret Pep 4120 H Urine Protein Urine Ketones Urine Urobilinogen Ur Leukocyte Esterase 08/23/17 12:03 RDW Seg Neutrophils % Lymphocytes % Chloride Carbon Dioxide BUN Glucose C-Reactive Protein NT-Pro-B Natriuret Pep Urine Protein 30 H Urine Ketones TRACE H Urine Urobilinogen 2.0 H Ur Leukocyte Esterase TRACE H - Diagnostic Test Radiology results interpreted by me: 08/23/17 14:10 cxr shows pulmonary venous congestion, no chf - EKG Interpretation by Me EKG shows normal: Sinus rhythm Rate: Normal When compared to previous EKG there are: No significant change Discharge - Discharge Clinical Impression: Pulmonary edema Qualifiers: Chronicity: acute Qualified Code(s): J81.0 - Acute pulmonary edema Clinical Impression: (Ruled Out): Pulmonary edema cardiac cause Condition: Good Disposition: ADMITTED INPATIENT Admitting Provider: Hospitalist - Dr. Cardoso
[2017-08-23] MEDS ORDERED: LEVOFLOXACIN 500 MG/D5W RTU 500 MG/100 ML RTUPB IV ONE (13:57)
[2017-08-23] MEDS ORDERED: ACETAMINOPHEN 325 MG TABLET PO PRN (14:22)
--- NOTE | 2017-08-23 15:02 | PDOC H&P ---
History of Present Illness Admission Date/PCP: 08/23/2017 1430 Patient complains of: Shortness of Breath History of Present Illness: ISI SESAY is a 62 year old female presents with Shortness of breath. Pt states that she has been shortness of breath for 2 weeks. Pt states that she has been coughing up phlegm that is green and dark green is color. Pt states that she has not been having fever. Pt states that she has had chills. Pt states that she was diagnosed with DVT in her right leg and has been on Lovenox for the last few months. Pt states that she was on Xarelto but clot continued to worsen. Pt states that at that time she was placed on Lovenox. Pt states that her follow up is scheduled for sep. Pt states that she is being seen by a specialist at the [facility]. Pt states that her O2 Sat are normally in the 90's on 2 liters. Pt states that now she is on 4 liters Sating upper 80's and low 90's. Pt denies sick contacts. Past Medical History Cardiac Medical History: Reports: DVT - Diagnosed 01/18/2017., Hypertension, Heart Murmur Denies: Congestive Heart Failure, Myocardial Infarction, Hyperlipidema, Pulmonary Embolism Pulmonary Medical History: Reports: Chronic Obstructive Pulmonary Disease (COPD) , Pneumonia Denies: Sleep Apnea Neurological Medical History: Denies: Seizures Endocrine Medical History: Reports: Diabetes Mellitus Type 1 Denies: Diabetes Mellitus Type 2, Hyperthyroidism, Hypothyroidism GI Medical History: Reports: Gastroesophageal Reflux Disease Denies: Cirrhosis, Hepatitis Musculoskeltal Medical History: Reports: Arthritis - Joint pain, without specific diagnosis of arthritis. Psychiatric Medical History: Reports: Depression Infectious Medical History: Denies: Clostridium Difficile, Methicillin-Resistant Staph Aureus Past Surgical History Past Surgical History: Reports: Orthopedic Surgery - Carpal tunnel release., Other - Lung biopsy, revealing benign nodules. Social History Smoking Status: Former Smoker Frequency of Alcohol Use: Rare Hx Recreational Drug Use: Yes Drugs: None Hx Prescription Drug Abuse: No - Advance Directive Resuscitation Status: Full Code Family History Family History: CAD, DM, Hypertension Parental Family History Reviewed: Yes Children Family History Reviewed: Yes Sibling(s) Family History Reviewed.: Yes Medication/Allergy Home Medications: Albuterol Sulfate [Albuterol Sulfate 2.5mg/3 mL] 1 vial IH RTQ4HP PRN 01/19/17 Budesonide/Formoterol Fumarate [Symbicort HFA 160-4.5 mcg Inhaler 6 gm] 2 puff IH Q12 01/19/17 Calcium Carbonate/Vitamin D3 [Calcium 500-Vit D3 200 Tablet] 1 tab PO DAILY Insulin Glargine,Hum.rec.anlog [Lantus Insulin 100 Unit/1 ml 10 ml] 10 unit SUBCUT QHS 01/19/17 Ipratropium [place] [Atrovent 0.02% Neb 0.5 mg/2.5 ml Ampul] 0.5 mg IH RTQ4HP PRN 01/19/17 Ipratropium/Albuterol Sulfate [Combivent Inhaler] 1 puff IH QIDP PRN 01/19/17 Nifedipine [Nifedipine ER] 60 mg PO DAILY 01/19/17 Omeprazole 40 mg PO DAILY 01/19/17 Paroxetine HCl [Paxil 20 mg Tablet] 10 mg PO QHS 01/19/17 Rivaroxaban [Xarelto 15 mg Tablet] 15 mg PO BIDBS #41 tablet 01/21/17 Allergies/Adverse Reactions: No Known Drug Allergies Allergy (Verified 08/23/17 11:16) mosquito bites Allergy (Severe, Uncoded 11/12/16 00:27) Anaphylaxis Review of Systems Constitutional: PRESENT: chills Eyes: ABSENT: visual disturbances Ears: ABSENT: hearing changes Cardiovascular: ABSENT: chest pain, dyspnea on exertion, edema, orthropnea, palpitations Respiratory: PRESENT: cough, dyspnea, sputum Gastrointestinal: ABSENT: abdominal pain, constipation, diarrhea, hematemesis, hematochezia, nausea, vomiting Genitourinary: ABSENT: dysuria, hematuria Musculoskeletal: ABSENT: joint swelling Integumentary: ABSENT: rash, wounds Neurological: ABSENT: abnormal gait, abnormal speech, confusion, dizziness, focal weakness, syncope Psychiatric: ABSENT: anxiety, depression, homidical ideation, suicidal ideation Endocrine: ABSENT: cold intolerance, heat intolerance, polydipsia, polyuria Hematologic/Lymphatic: ABSENT: easy bleeding, easy bruising Physical Exam Vital Signs: Temp Pulse Resp BP Pulse Ox 26 H 129/67 H 90 L 08/23/17 13:01 08/23/17 13:01 08/23/17 13:01 General appearance: PRESENT: no acute distress, well-developed, well-nourished Head exam: PRESENT: atraumatic, normocephalic Eye exam: PRESENT: conjunctiva pink, EOMI. ABSENT: scleral icterus Ear exam: PRESENT: normal external ear exam Mouth exam: PRESENT: moist, tongue midline Neck exam: ABSENT: carotid bruit, JVD, lymphadenopathy, thyromegaly Respiratory exam: PRESENT: rhonchi - +Left lower lobe, + clear lung in the upper lobes. ABSENT: rales, wheezes Cardiovascular exam: PRESENT: RRR. ABSENT: diastolic murmur, rubs, systolic murmur Pulses: PRESENT: normal dorsalis pedis pul Vascular exam: PRESENT: normal capillary refill GI/Abdominal exam: PRESENT: normal bowel sounds, soft. ABSENT: distended, guarding, mass, organolmegaly, rebound, tenderness Rectal exam: PRESENT: deferred Extremities exam: PRESENT: full ROM. ABSENT: calf tenderness, clubbing, pedal edema Musculoskeletal exam: PRESENT: full ROM Neurological exam: PRESENT: alert, awake, oriented to person, oriented to place , oriented to time, oriented to situation, CN II-XII grossly intact. ABSENT: motor sensory deficit Psychiatric exam: PRESENT: appropriate affect, normal mood. ABSENT: homicidal ideation, suicidal ideation Skin exam: PRESENT: dry, intact, warm. ABSENT: cyanosis, rash Results Laboratory Results: 08/23/17 11:40 08/23/17 11:40 08/23/17 08/23/17 08/23/17 11:40 11:40 12:03 WBC 9.6 RBC 4.72 Hgb 14.0 Hct 43.7 MCV 93 MCH 29.6 MCHC 32.0 RDW 15.0 H Plt Count 347 Seg Neutrophils % 84.1 H Lymphocytes % 11.2 L Monocytes % 3.7 Eosinophils % 0.4 Basophils % 0.6 Absolute Neutrophils 8.1 Absolute Lymphocytes 1.1 Absolute Monocytes 0.4 Absolute Eosinophils 0.0 Absolute Basophils 0.1 Sodium 138.3 Potassium 4.9 Chloride 91 L Carbon Dioxide 39 H Anion Gap 8 BUN 23 H Creatinine 0.61 Est GFR ( Amer) > 60 Est GFR (Non-Af Amer) > 60 Glucose 161 H Calcium 9.2 Total Bilirubin 0.8 AST 19 ALT 42 Alkaline Phosphatase 81 C-Reactive Protein 23.8 H Total Protein 6.7 Albumin 4.0 Urine Color YELLOW Urine Appearance SLIGHTLY-CLOUDY Urine pH 6.0 Ur Specific [place] 1.023 Urine Protein 30 H Urine Glucose (UA) NEGATIVE Urine Ketones TRACE H Urine Blood NEGATIVE Urine Nitrite NEGATIVE Ur Leukocyte Esterase TRACE H Urine WBC (Auto) 3 Urine RBC (Auto) 2 08/23/17 08/23/17 08/23/17 11:40 11:40 11:40 Creatine Kinase 39 Troponin I 0.021 NT-Pro-B Natriuret Pep 4120 H Impressions: Chest X-Ray 08/23/17 11:44 IMPRESSION: Mild pulmonary vascular congestion with no CHF. Assessment & Plan - Diagnosis (1) Acute on chronic respiratory failure with hypoxemia Is this a current diagnosis for this admission?: Yes Plan: Presumed COPD Exacerbation: Will check CTA of chest due to history of DVT and hypoxia. Will also check ABG. Will continue breathing treatments, steroids, and Levaquin. (2) Acute exacerbation of chronic obstructive pulmonary disease (COPD) Is this a current diagnosis for this admission?: Yes Plan: Will continue to steroids, breathing treatments, and Levaquin. (3) Pulmonary edema Qualifiers: Chronicity: acute Qualified Code(s): J81.0 - Acute pulmonary edema Plan: Pt was given Lasix x 1 in ER. Will check 2 D Echo to evaluate cardiac function. (4) DVT (deep venous thrombosis) Qualifiers: DVT location: lower extremity Chronicity: acute Laterality: right Is this a current diagnosis for this admission?: Yes Plan: Chronic DVT: Continue Lovenox. (5) Depression Qualifiers: Depression Type: unspecified Qualified Code(s): F32.9 - Major depressive disorder, single episode, unspecified Is this a current diagnosis for this admission?: Yes Plan: Will continue home medication once meds recon completed. (6) Diabetes mellitus type 1 Qualifiers: Diabetes mellitus complication status: without complication Qualified Code( s): E10.9 - Type 1 diabetes mellitus without complications Is this a current diagnosis for this admission?: Yes Plan: Will check HbgA1C. Will place on SSI. (7) GERD (gastroesophageal reflux disease) Qualifiers: Esophagitis presence: without esophagitis Qualified Code(s): K21.9 - Gastro -esophageal reflux disease without esophagitis Is this a current diagnosis for this admission?: Yes Plan: Will continue PPI. (8) DVT prophylaxis Is this a current diagnosis for this admission?: Yes Plan: Lovenox. - Time Time Spent: 30 to 50 Minutes Anticipated discharge: Home - Inpatient Certification Medical Necessity: Need for Nebulizer Therapy and Monitoring of Response
[2017-08-23] MEDS: METHYLPREDNISOLONE INJ 40 MG/1 ML SDV IV SCH ×2 (16:01→22:42)
[2017-08-23 16:20] LABS: ARTERIAL BLOOD O2 SATURATION 83.6 % (94-98)
[2017-08-23] MEDS ORDERED: MORPHINE SULFATE 10 MG/ML INJ IV PRN (16:40)
--- NOTE | 2017-08-23 16:43 | RADIOLOGY REPORT (SQ) ---
EXAM DESCRIPTION: CTA CHEST COMPLETED DATE/TIME: 08/23/2017 4:18 pm REASON FOR STUDY: Concern for PE COMPARISON: Chest x-ray dated 08/23/2017. Chest CTA dated 11/11/2016 and 01/01/2015. TECHNIQUE: CT scan of the chest performed using helical scanning technique with dynamic intravenous contrast injection. Images reviewed with lung, soft tissue and bone windows. Reconstructed coronal and sagittal MPR images reviewed. Additional 3 dimensional post-processing performed to develop Maximal Intensity Projection images (SC P). All images stored on PACS. All CT scanners at this facility use dose modulation, iterative reconstruction, and/or weight based d osing when appropriate to reduce radiation dose to as low as reasonably achievable (ALARA). [facility]: Dose Right [facility]: CareDose [facility]: Dose Right [facility]: Teradose 4D [facility]: LoopIt CONTRAST TYPE AND DOSE: contrast/concentration: Isovue 370.00 mg/ml; Total Contrast Delivered: 70.0 ml; Total Saline Delivered: 70.0 ml Contrast bolus adequate for pulmonary arteries and aorta. RENAL FUNCTION: BUN 23 creatinine 0.61. RADIATION DOSE: CT Rad equipment meets quality standard of care and radiation dose reduction techniq ues were employed. CTDIvol: 13.2 - 14.3 mGy. DLP: 530 mGy-cm. . LIMITATIONS: None. FINDINGS: LUNGS AND PLEURA: 4 mm subpleural nodule in the right lung (series 4, image 45) unchanged. 7.8 mm nodule in the right lung (series 4, image 45) unchanged compared to November 2016 but may be sl ightly larger compared to December 2014. No focal infiltrates. No pleural effusion. No pneumothorax. AORTA AND GREAT VESSELS: No aneurysm. Contrast bolus not optimized for the aorta. HEART: No pericardial effusion. No significant coronary artery calcifications. PULMONARY ARTERIES: No emboli visualized in the main pulmonary arteries or the segmental branches. HILAR AND MEDIASTINAL STRUCTURES: No identified masses or abnormal nodes. Small partially calcified lymph node in the left hilum unchanged. HARDWARE: None in the chest. UPPER ABDOMEN: No significant findings. Limited exam. THYROID AND OTHER SOFT TISSUES: No masses. No adenopathy. BONES: No acute or significant finding. 3D MIPS: Confirm above findings. OTHER: No other significant finding. IMPRESSION: 1. NORMAL CTA OF THE CHEST. NO PULMONARY EMBOLI. 2. SMALL LUNG NODULES DESCRIBED. 7.8 MM NODULE IN THE RIGHT LUNG MAY BE SLIGHTLY LARGER COMPARED TO DECEMBER 2014. SOME OF THIS COULD BE DUE TO SCAN TECHNIQUE AND SLICE SPACING. CONSIDER FOLLOWUP BAS ED ON FLEISCHNER CRITERIA. COMMENT: FLEISCHNER CRITERIA FOR FOLLOW-UP OF PULMONARY NODULES Incidentally detected new nodules in persons 35 or older. HIGH RISK: History of smoking or other known risk factors. 6-8mm multiple solid nodules: LOW RISK: CT 3-6 mo; then consider CT 18-24 mo. HIGH RISK: CT 3-6 mo; t hen CT 18-24 mo. Quality ID # [id number]: Final reports with documentation of one or more dose reduction techniques (e.g., Au tomated exposure control, adjustment of the mA and/or kV according to patient size, use of iterative reconstruction technique) TECHNICAL DOCUMENTATION: JOB ID: [id number] [employer]- All Rights Reserved
[2017-08-23] MEDS ORDERED: INFLUENZA ADLT QUAD (36MOS+) 2017-18 VAC 0.5 ML SYR IM PRN (18:27)
[2017-08-23] MEDS ORDERED: DEXTROSE 50%-WATER 25 GM/50 ML DISP.SYRIN IV PRN ×2 (20:41)
[2017-08-23] MEDS ORDERED: IPRATROPIUM BROMIDE 0.02% NEB 0.5 MG/2.5 ML AMPUL NEB PRN (20:41)
[2017-08-23] MEDS ORDERED: GLUCAGON,HUMAN RECOMB 1 MG INJ IM PRN (20:41)
[2017-08-23] MEDS ORDERED: DEXTROSE 40% GEL 15 GM TUBE PO PRN ×2 (20:41)
[2017-08-23] MEDS: IPRATROPIUM/ALBUTEROL 120 PUFF/4 GM MDI IH SCH (22:39)
[2017-08-23] MEDS: BUDESONIDE/FORMOTEROL 160-4.5 MCG 60 PUFF/6 GM MDI IH SCH (22:40)
[2017-08-23] MEDS: INSULIN LISPRO 100 UNIT/ML 3 ML VIAL SUBCUT PRN (22:40)
[2017-08-23] MEDS: INSULIN GLARGINE,HUM.REC.ANLOG 300 UNIT/3 ML INSULN.PEN SUBCUT SCH (22:40)
[2017-08-23] MEDS: ENOXAPARIN SODIUM INJ 80 MG/0.8 ML DISP.SYRIN SUBCUT SCH (22:41)
[2017-08-24 01:24] LABS: APPEARANCE,URINE CLEAR; BILIRUBIN,URINE NEGATIVE (NEGATIVE); GLUCOSE, URINE >=500 mg/dL (NEGATIVE); KETONES,URINE TRACE mg/dL (NEGATIVE); LEUKOCYTE ESTERASE,URINE NEGATIVE (NEGATIVE); NITRITE,URINE NEGATIVE (NEGATIVE); PROTEIN,URINE NEGATIVE (NEGATIVE); URINE SPECIFIC GRAVITY 1.038
[2017-08-24] MEDS: IPRATROPIUM/ALBUTEROL 120 PUFF/4 GM MDI IH SCH ×6 (02:16→22:39)
[2017-08-24] MEDS: LANSOPRAZOLE 30 MG TAB.RAP.DR PO SCH (05:40)
[2017-08-24] MEDS: METHYLPREDNISOLONE INJ 40 MG/1 ML SDV IV SCH ×3 (05:40→22:39)
[2017-08-24 05:47] LABS: ABSOLUTE LYMPHOCYTES (AUTO) 0.5 10^3/uL (0.5-4.7); ABSOLUTE MONOCYTES (AUTO) 0.2 10^3/uL (0.1-1.4); ABSOLUTE NEUT (AUTO) 6.9 10^3/uL (1.7-8.2); BASOPHILS % (AUTO) 0.4 % (0-2); HEMATOCRIT 40.9 % (36.0-47.0); HEMOGLOBIN 13.2 g/dL (12.0-15.5); HGB HCT DIFFERENCE -1.3; MEAN CORPUSCULAR HEMOGLOBIN 29.6 pg (27.0-33.4); MEAN CORPUSCULAR HGB CONC 32.2 g/dL (32.0-36.0); MEAN CORPUSCULAR VOLUME 92 fl (80-97); MONOCYTES % (AUTO) 2.6 % (3-13); RED BLOOD COUNT 4.45 10^6/uL (3.72-5.28); RED CELL DISTRIBUTION WIDTH 14.8 % (11.5-14.0); WHITE BLOOD COUNT 7.6 10^3/uL (4.0-10.5)
[2017-08-24] MEDS ORDERED: LANSOPRAZOLE 30 MG TAB.RAP.DR PO SCH (06:00)
[2017-08-24 06:04] LABS: ALANINE AMINOTRANSFERASE 30 U/L (9-52); ALBUMIN 3.4 g/dL (3.5-5.0); ALKALINE PHOSPHATASE 63 U/L (38-126); ASPARTATE AMINO TRANSFERASE 14 U/L (14-36); BILIRUBIN,DIRECT 0.2 mg/dL (0.0-0.4); BILIRUBIN,TOTAL 0.3 mg/dL (0.2-1.3); BLOOD UREA NITROGEN 19 mg/dL (7-20); CALCIUM 9.2 mg/dL (8.4-10.2); CHLORIDE 94 mmol/L (98-107); CREATININE RESULT 0.67 mg/dL (0.52-1.25); GLUCOSE 263 mg/dL (75-110); POTASSIUM 5.2 mmol/L (3.6-5.0); SODIUM 140.7 mmol/L (137-145); TOTAL PROTEIN 5.9 g/dL (6.3-8.2)
[2017-08-24 06:10] LABS: ANION GAP 7 (5-19)
[2017-08-24 06:17] LABS: CARBON DIOXIDE 40 mmol/L (22-30)
[2017-08-24 06:33] LABS: THYROID STIMULATING HORMONE 0.94 uIU/mL (0.47-4.68)
[2017-08-24 08:09] LABS: ARTERIAL BLOOD BASE EXCESS 13.5 mmol/L; ARTERIAL BLOOD O2 SATURATION 90.9 % (94-98)
[2017-08-24] MEDS ORDERED: (PENDING PHARMACY ID) (Nifedipine [Adalat Cc] 60 MG) PO SCH (10:00)
[2017-08-24] MEDS ORDERED: ENOXAPARIN SODIUM 120 MG SUBCUT SCH (10:00)
[2017-08-24] MEDS ORDERED: ENOXAPARIN SODIUM INJ 120 MG/0.8 ML DISP.SYRIN SUBCUT SCH (10:00)
[2017-08-24] MEDS: INSULIN LISPRO 100 UNIT/ML 3 ML VIAL SUBCUT PRN ×4 (10:41→22:38)
[2017-08-24] MEDS: ENOXAPARIN SODIUM INJ 80 MG/0.8 ML DISP.SYRIN SUBCUT SCH ×2 (10:42→22:38)
[2017-08-24] MEDS: PAROXETINE HCL 20 MG TABLET PO SCH (10:45)
[2017-08-24] MEDS: NIFEDIPINE 30 MG TAB.ER.24 PO SCH (10:47)
[2017-08-24] MEDS: LEVOFLOXACIN 500 MG/D5W RTU 500 MG/100 ML RTUPB IV SCH (10:49)
[2017-08-24] MEDS: BUDESONIDE/FORMOTEROL 160-4.5 MCG 60 PUFF/6 GM MDI IH SCH ×2 (10:50→22:39)
[2017-08-24] MEDS: DOCUSATE SODIUM 100 MG CAPSULE PO SCH (10:51)
[2017-08-24 11:55] LABS: ARTERIAL BLOOD BASE EXCESS 12.4 mmol/L; ARTERIAL BLOOD O2 SATURATION 98.9 % (94-98)
--- NOTE | 2017-08-24 13:29 | XCELERA REPORT ---
[address] [address] Transthoracic Echocardiogram Report Name: ISI SESAY Age: 62 yrs Gender: Female : 1955 Patient Status: Emergency Patient Location: ER Study Date: 08/23/2017 03:02 PM Height: 62 in Weight: 170 lb BSA: 1.8 m2 Procedure: A two-dimensional transthoracic echocardiogram with color flow and Doppler was performed. Study Quality: Fair. Reason For Study: Elevated BNP / CHF History: Elevated BNP / CHF. Ordering Physician: BREANA VICENTE Performed By: La Starks Interpretation Summary The left ventricle is normal in size. There is normal left ventricular wall thickness. LV EF is > than 70% Left ventricular systolic function is normal. Doppler measurements suggest normal left ventricular diastolic function The left ventricular wall motion is normal. There is no thrombus. There is no ventricular septal defect visualized. The right ventricle is moderately dilated. The right ventricular systolic function is mildly reduced. The right atrium is mildly dilated. The left atrial size is normal. The interatrial septum is intact with no evidence for an atrial septal defect. There is no evidence of mitral valve prolapse. There is no vegetation seen on the mitral valve. There is no mitral valve stenosis. There is no mitral regurgitation noted. There is no aortic valve stenosis There is no LVOT obstruction. No aortic regurgitation is present. There is no tricuspid stenosis. There is a moderate amount of tricuspid regurgitation There is servere pulmonary hypertension by echo RVSP is 79 t084 mm of Hg , with RA mean of 15 to 20. There is no pulmonic valvular stenosis. There is no pulmonic valvular regurgitation. The aortic root is normal size. The inferior vena cava appeared dilated and decreased < 50% with respiration (RAP 15-20 mmHg) There is no pericardial effusion. MMode/2D Measurements & Calculations RVDd: 3.2 cm LVIDd: 4.8 cm FS: 45.0 % Ao root diam: 2.7 cm IVSd: 0.96 cm LVIDs: 2.6 cm EDV(Teich): 108.1 ml LVPWd: 0.97 cm ESV(Teich): 25.7 ml Ao root area: 5.9 cm2 EF(Teich): 76.2 % Doppler Measurements & Calculations MV E max crescencio: MV dec slope: Ao V2 max: LV V1 max P.5 cm/sec 193.5 cm/sec 8.8 mmHg MV A max crescencio: 417.6 cm/sec2 Ao max PG: LV V1 max: 72.2 cm/sec MV dec time: 15.0 mmHg 148.0 cm/sec MV E/A: 1.3 0.22 sec PA V2 max: TR max crescencio: 90.9 cm/sec 339.5 cm/sec PA max PG: TR max P.8 mmHg 3.3 mmHg Left Ventricle The left ventricle is normal in size. There is normal left ventricular wall thickness. LV EF is > than 70%. Left ventricular systolic function is normal. Doppler measurements suggest normal left ventricular diastolic function. The left ventricular wall motion is normal. There is no thrombus. There is no ventricular septal defect visualized. Right Ventricle The right ventricle is moderately dilated. The right ventricular systolic function is mildly reduced. Atria The right atrium is mildly dilated. The left atrial size is normal. The interatrial septum is intact with no evidence for an atrial septal defect. Mitral Valve There is no evidence of mitral valve prolapse. There is no vegetation seen on the mitral valve. There is no mitral valve stenosis. There is no mitral regurgitation noted. Aortic Valve There is no aortic valvular vegetation. There is no aortic valve stenosis. There is no LVOT obstruction. No aortic regurgitation is present. Tricuspid Valve There is no tricuspid stenosis. There is a moderate amount of tricuspid regurgitation. There is servere pulmonary hypertension by echo. RVSP is 79 t084 mm of Hg , with RA mean of 15 to 20. Pulmonic Valve There is no pulmonic valvular stenosis. There is no pulmonic valvular regurgitation. Great Vessels The aortic root is normal size. The inferior vena cava appeared dilated and decreased < 50% with respiration (RAP 15-20 mmHg). Effusions There is no pericardial effusion. : BREANA VICENTE > Leslie Dalton
--- NOTE | 2017-08-24 13:42 | PDOC PROGRESS REPORT ---
Subjective Progress Note for:: 08/24/17 Subjective:: Pt states that she is doing ok. Pt states that she does not like to wear BIPAP due anxiety. Pt did agree to wear BIPAP and CO2 has improved. Pt refused to use BIPAP overnight. Reason For Visit: ACUTE HYPOXIC RESPIRATORY FAILURE,SUSPECTE COPD Physical Exam Vital Signs: Temp Pulse Resp BP Pulse Ox 99.1 F 86 23 H 113/57 L 99 08/24/17 07:34 08/24/17 07:34 08/24/17 11:40 08/24/17 07:34 08/24/17 11:40 Intake & Output 08/23/17 08/24/17 08/25/17 06:59 06:59 06:59 Intake Total 720 Output Total 900 Balance -180 Weight 73 kg General appearance: PRESENT: no acute distress, well-developed, well-nourished Head exam: PRESENT: atraumatic, normocephalic Eye exam: PRESENT: conjunctiva pink, EOMI. ABSENT: scleral icterus Ear exam: PRESENT: normal external ear exam Mouth exam: PRESENT: moist, tongue midline Neck exam: ABSENT: carotid bruit, JVD, lymphadenopathy, thyromegaly Respiratory exam: PRESENT: accessory muscle use, decreased breath sounds, prolonged expiratory phas Cardiovascular exam: PRESENT: RRR. ABSENT: diastolic murmur, rubs, systolic murmur Pulses: PRESENT: normal dorsalis pedis pul Vascular exam: PRESENT: normal capillary refill GI/Abdominal exam: PRESENT: normal bowel sounds, soft. ABSENT: distended, guarding, mass, organolmegaly, rebound, tenderness Rectal exam: PRESENT: deferred Extremities exam: PRESENT: full ROM. ABSENT: calf tenderness, clubbing, pedal edema Neurological exam: PRESENT: alert, awake, oriented to person, oriented to place , oriented to time, oriented to situation, CN II-XII grossly intact. ABSENT: motor sensory deficit Psychiatric exam: PRESENT: appropriate affect, normal mood. ABSENT: homicidal ideation, suicidal ideation Skin exam: PRESENT: dry, intact, warm. ABSENT: cyanosis, rash Results Laboratory Results: 08/24/17 05:01 08/24/17 05:01 08/24/17 08/24/17 08/24/17 01:00 05:01 05:01 WBC 7.6 RBC 4.45 Hgb 13.2 Hct 40.9 MCV 92 MCH 29.6 MCHC 32.2 RDW 14.8 H Plt Count 303 Seg Neutrophils % 91.0 H Lymphocytes % 6.0 L Monocytes % 2.6 L Eosinophils % 0.0 Basophils % 0.4 Absolute Neutrophils 6.9 Absolute Lymphocytes 0.5 Absolute Monocytes 0.2 Absolute Eosinophils 0.0 Absolute Basophils 0.0 Carbonic Acid HCO3/H2CO3 Ratio ABG pH ABG pCO2 ABG pO2 ABG HCO3 ABG O2 Saturation ABG Base Excess FiO2 Sodium 140.7 Potassium 5.2 H Chloride 94 L Carbon Dioxide 40 H* Anion Gap 7 BUN 19 Creatinine 0.67 Est GFR ( Amer) > 60 Est GFR (Non-Af Amer) > 60 Glucose 263 H Calcium 9.2 Total Bilirubin 0.3 AST 14 ALT 30 Alkaline Phosphatase 63 Total Protein 5.9 L Albumin 3.4 L TSH Free T4 Urine Color YELLOW Urine Appearance CLEAR Urine pH 7.0 Ur Specific [place] 1.038 Urine Protein NEGATIVE Urine Glucose (UA) >=500 H Urine Ketones TRACE H Urine Blood NEGATIVE Urine Nitrite NEGATIVE Ur Leukocyte Esterase NEGATIVE Urine WBC (Auto) 1 Urine RBC (Auto) 0 08/24/17 08/24/17 08/24/17 05:01 06:44 11:20 WBC RBC Hgb Hct MCV MCH MCHC RDW Plt Count Seg Neutrophils % Lymphocytes % Monocytes % Eosinophils % Basophils % Absolute Neutrophils Absolute Lymphocytes Absolute Monocytes Absolute Eosinophils Absolute Basophils Carbonic Acid 2.75 H 2.01 H HCO3/H2CO3 Ratio 16:1 20:1 ABG pH 7.30 L 7.40 ABG pCO2 91.3 H* 66.8 H ABG pO2 69.1 L 151.9 H ABG HCO3 44.2 H 40.2 H ABG O2 Saturation 90.9 L 98.9 H ABG Base Excess 13.5 12.4 FiO2 36% 65% Sodium Potassium Chloride Carbon Dioxide Anion Gap BUN Creatinine Est GFR ( Amer) Est GFR (Non-Af Amer) Glucose Calcium Total Bilirubin AST ALT Alkaline Phosphatase Total Protein Albumin TSH 0.94 Free T4 1.19 Urine Color Urine Appearance Urine pH Ur Specific [place] Urine Protein Urine Glucose (UA) Urine Ketones Urine Blood Urine Nitrite Ur Leukocyte Esterase Urine WBC (Auto) Urine RBC (Auto) 08/23/17 08/23/17 08/24/17 17:00 22:55 05:01 Troponin I 0.015 < 0.012 < 0.012 Impressions: Chest/Abdomen CTA 08/23/17 00:00 IMPRESSION: 1. NORMAL CTA OF THE CHEST. NO PULMONARY EMBOLI. 2. SMALL LUNG NODULES DESCRIBED. 7.8 MM NODULE IN THE RIGHT LUNG MAY BE SLIGHTLY LARGER COMPARED TO DECEMBER 2014. SOME OF THIS COULD BE DUE TO SCAN TECHNIQUE AND SLICE SPACING. CONSIDER FOLLOWUP BASED ON FLEISCHNER CRITERIA. Chest X-Ray 08/23/17 11:44 IMPRESSION: Mild pulmonary vascular congestion with no CHF. Assessment & Plan - Diagnosis (1) Acute on chronic respiratory failure with hypoxemia Is this a current diagnosis for this admission?: Yes Plan: Pt currently wearing BIPAP. Will continue current treatment. CTA did not demonstrate PE. Will repeat ABG at 11 am (2) Acute exacerbation of chronic obstructive pulmonary disease (COPD) Is this a current diagnosis for this admission?: Yes Plan: Will continue current treatment plan. (3) Pulmonary edema Qualifiers: Chronicity: acute Qualified Code(s): J81.0 - Acute pulmonary edema Plan: Resolved. (4) DVT (deep venous thrombosis) Qualifiers: DVT location: lower extremity Chronicity: acute Laterality: right Is this a current diagnosis for this admission?: Yes Plan: Chronic DVT: Continue Lovenox. (5) Depression Qualifiers: Depression Type: unspecified Qualified Code(s): F32.9 - Major depressive disorder, single episode, unspecified Is this a current diagnosis for this admission?: Yes Plan: Will continue Paxil. (6) Diabetes mellitus type 1 Qualifiers: Diabetes mellitus complication status: without complication Qualified Code( s): E10.9 - Type 1 diabetes mellitus without complications Is this a current diagnosis for this admission?: Yes Plan: HbgA1C 7.4. Will continue SSI. (7) GERD (gastroesophageal reflux disease) Qualifiers: Esophagitis presence: without esophagitis Qualified Code(s): K21.9 - Gastro -esophageal reflux disease without esophagitis Is this a current diagnosis for this admission?: Yes Plan: Prevacid (8) DVT prophylaxis Is this a current diagnosis for this admission?: Yes Plan: Lovenox. - Time Time Spent with patient: 15-24 minutes Anticipated discharge: Home
--- NOTE | 2017-08-24 15:22 | Physician Advisory Note ---
Physician Advisor ProgressNote .: Pursuant to the plan for [facility], I have reviewed the medical record for this patient. Physician Advisor Statement: Really excellent documentation in H&P of pt's Ac & chronic Resp FAilure & supporting evidence. Excellent further documentation of ongoing medical necessity 08/24, with pt still needing BIpap, still using accessory muscles to breathe, still tachypneic , still w/acute hypercarbic as well as hypoxemic resp failure with acute respiratory acidosis. Severity of illness & intensity of service & clinical risks all high. Status: appropriate for Inpt status. CK
[2017-08-24] MEDS: INSULIN GLARGINE,HUM.REC.ANLOG 300 UNIT/3 ML INSULN.PEN SUBCUT SCH (22:39)
[2017-08-25] MEDS: IPRATROPIUM/ALBUTEROL 120 PUFF/4 GM MDI IH SCH ×6 (02:18→23:29)
[2017-08-25 05:02] LABS: HEMATOCRIT 40.8 % (36.0-47.0); HEMOGLOBIN 13.3 g/dL (12.0-15.5); HGB HCT DIFFERENCE -0.9; MEAN CORPUSCULAR HEMOGLOBIN 29.5 pg (27.0-33.4); MEAN CORPUSCULAR HGB CONC 32.5 g/dL (32.0-36.0); MEAN CORPUSCULAR VOLUME 91 fl (80-97); RED CELL DISTRIBUTION WIDTH 14.7 % (11.5-14.0); WHITE BLOOD COUNT 9.4 10^3/uL (4.0-10.5)
[2017-08-25 05:29] LABS: ANION GAP 7 (5-19); BLOOD UREA NITROGEN 19 mg/dL (7-20); CALCIUM 9.7 mg/dL (8.4-10.2); CARBON DIOXIDE 37 mmol/L (22-30); CHLORIDE 94 mmol/L (98-107); CREATININE RESULT 0.65 mg/dL (0.52-1.25); GLUCOSE 145 mg/dL (75-110); POTASSIUM 4.7 mmol/L (3.6-5.0); SODIUM 138.2 mmol/L (137-145)
[2017-08-25] MEDS: LANSOPRAZOLE 30 MG TAB.RAP.DR PO SCH (06:25)
[2017-08-25] MEDS: METHYLPREDNISOLONE INJ 40 MG/1 ML SDV IV SCH ×3 (06:25→22:09)
[2017-08-25] MEDS: NIFEDIPINE 30 MG TAB.ER.24 PO SCH (09:42)
[2017-08-25] MEDS: ENOXAPARIN SODIUM INJ 80 MG/0.8 ML DISP.SYRIN SUBCUT SCH ×2 (09:42→22:09)
[2017-08-25] MEDS: LEVOFLOXACIN 500 MG/D5W RTU 500 MG/100 ML RTUPB IV SCH (09:42)
[2017-08-25] MEDS: BUDESONIDE/FORMOTEROL 160-4.5 MCG 60 PUFF/6 GM MDI IH SCH ×2 (09:44→22:10)
[2017-08-25] MEDS: PAROXETINE HCL 20 MG TABLET PO SCH (09:44)
[2017-08-25] MEDS: DOCUSATE SODIUM 100 MG CAPSULE PO SCH (09:45)
--- NOTE | 2017-08-25 11:37 | PDOC PROGRESS REPORT ---
Subjective Progress Note for:: 08/25/17 Subjective:: Pt states that she is feeling better. Pt states that she would like to go home today. Nursing states that pt has been doing better. Nursing states that pt did wear her BIPAP for 4 hours overnight. Reason For Visit: ACUTE HYPOXIC RESPIRATORY FAILURE,SUSPECTE COPD Physical Exam Vital Signs: Temp Pulse Resp BP Pulse Ox 98.7 F 83 14 132/71 H 91 L 08/25/17 07:58 08/25/17 11:05 08/25/17 11:05 08/25/17 07:58 08/25/17 11:05 Intake & Output 08/24/17 08/25/17 08/26/17 06:59 06:59 06:59 Intake Total 720 1480 Output Total 900 Balance -180 1480 Weight 73 kg 77 kg General appearance: PRESENT: no acute distress, well-developed, well-nourished Head exam: PRESENT: atraumatic, normocephalic Eye exam: PRESENT: conjunctiva pink, EOMI. ABSENT: scleral icterus Ear exam: PRESENT: normal external ear exam Mouth exam: PRESENT: moist, tongue midline Neck exam: ABSENT: carotid bruit, JVD, lymphadenopathy, thyromegaly Respiratory exam: PRESENT: clear to auscultation taurus, wheezes - + scant wheezing heard more in the left lower lobe, No accessory muscule use today.. ABSENT: rales, rhonchi Cardiovascular exam: PRESENT: RRR. ABSENT: diastolic murmur, rubs, systolic murmur Pulses: PRESENT: normal dorsalis pedis pul Vascular exam: PRESENT: normal capillary refill GI/Abdominal exam: PRESENT: normal bowel sounds, soft. ABSENT: distended, guarding, mass, organolmegaly, rebound, tenderness Rectal exam: PRESENT: deferred Extremities exam: PRESENT: full ROM. ABSENT: calf tenderness, clubbing, pedal edema Musculoskeletal exam: PRESENT: full ROM, normal inspection Neurological exam: PRESENT: alert, awake, oriented to person, oriented to place , oriented to time, oriented to situation, CN II-XII grossly intact. ABSENT: motor sensory deficit Psychiatric exam: PRESENT: appropriate affect, normal mood. ABSENT: homicidal ideation, suicidal ideation Skin exam: PRESENT: dry, intact, warm. ABSENT: cyanosis, rash Results Laboratory Results: 08/25/17 04:10 08/25/17 04:10 08/24/17 08/25/17 08/25/17 11:20 04:10 04:10 WBC 9.4 RBC 4.50 Hgb 13.3 Hct 40.8 MCV 91 MCH 29.5 MCHC 32.5 RDW 14.7 H Plt Count 270 Carbonic Acid 2.01 H HCO3/H2CO3 Ratio 20:1 ABG pH 7.40 ABG pCO2 66.8 H ABG pO2 151.9 H ABG HCO3 40.2 H ABG O2 Saturation 98.9 H ABG Base Excess 12.4 FiO2 65% Sodium 138.2 Potassium 4.7 Chloride 94 L Carbon Dioxide 37 H Anion Gap 7 BUN 19 Creatinine 0.65 Est GFR ( Amer) > 60 Est GFR (Non-Af Amer) > 60 Glucose 145 H Calcium 9.7 08/23/17 08/23/17 08/24/17 17:00 22:55 05:01 Troponin I 0.015 < 0.012 < 0.012 Impressions: Chest/Abdomen CTA 08/23/17 00:00 IMPRESSION: 1. NORMAL CTA OF THE CHEST. NO PULMONARY EMBOLI. 2. SMALL LUNG NODULES DESCRIBED. 7.8 MM NODULE IN THE RIGHT LUNG MAY BE SLIGHTLY LARGER COMPARED TO DECEMBER 2014. SOME OF THIS COULD BE DUE TO SCAN TECHNIQUE AND SLICE SPACING. CONSIDER FOLLOWUP BASED ON FLEISCHNER CRITERIA. Chest X-Ray 08/23/17 11:44 IMPRESSION: Mild pulmonary vascular congestion with no CHF. Assessment & Plan - Diagnosis (1) Acute on chronic respiratory failure with hypoxemia Is this a current diagnosis for this admission?: Yes Plan: Pt appears to be doing better. Will check ABG today. Will allow pt to not use BIPAP overnight to see if you is able to maintain good gas exchange. (2) Acute exacerbation of chronic obstructive pulmonary disease (COPD) Is this a current diagnosis for this admission?: Yes Plan: Will change breathing treatments to Q6 hours. (3) Pulmonary edema Qualifiers: Chronicity: acute Qualified Code(s): J81.0 - Acute pulmonary edema Plan: Resolved. Will check CXR in am (4) DVT (deep venous thrombosis) Qualifiers: DVT location: lower extremity Chronicity: acute Laterality: right Is this a current diagnosis for this admission?: Yes Plan: Chronic DVT: Continue Lovenox. (5) Depression Qualifiers: Depression Type: unspecified Qualified Code(s): F32.9 - Major depressive disorder, single episode, unspecified Is this a current diagnosis for this admission?: Yes Plan: Will continue Paxil. (6) Diabetes mellitus type 1 Qualifiers: Diabetes mellitus complication status: without complication Qualified Code( s): E10.9 - Type 1 diabetes mellitus without complications Is this a current diagnosis for this admission?: Yes Plan: HbgA1C 7.4. Will continue SSI. (7) GERD (gastroesophageal reflux disease) Qualifiers: Esophagitis presence: without esophagitis Qualified Code(s): K21.9 - Gastro -esophageal reflux disease without esophagitis Is this a current diagnosis for this admission?: Yes Plan: Prevacid (8) DVT prophylaxis Is this a current diagnosis for this admission?: Yes Plan: Lovenox. - Time Time Spent with patient: Less than 15 minutes
[2017-08-25] MEDS ORDERED: ALBUTEROL SULFATE 0.083% NEB 2.5 MG/3 ML AMPUL NEB PRN (11:43)
[2017-08-25 11:45] LABS: APPEARANCE,URINE CLEAR; BILIRUBIN,URINE NEGATIVE (NEGATIVE); GLUCOSE, URINE NEGATIVE (NEGATIVE); KETONES,URINE NEGATIVE (NEGATIVE); LEUKOCYTE ESTERASE,URINE NEGATIVE (NEGATIVE); NITRITE,URINE NEGATIVE (NEGATIVE); PROTEIN,URINE NEGATIVE (NEGATIVE); URINE SPECIFIC GRAVITY 1.013; UROBILINOGEN,URINE NEGATIVE mg/dL (<2.0)
[2017-08-25] MEDS: INSULIN LISPRO 100 UNIT/ML 3 ML VIAL SUBCUT PRN ×3 (12:03→22:10)
[2017-08-25 12:10] LABS: ARTERIAL BLOOD BASE EXCESS 9.8 mmol/L; ARTERIAL BLOOD O2 SATURATION 93.3 % (94-98)
--- NOTE | 2017-08-25 15:18 | RADIOLOGY REPORT (SQ) ---
EXAM DESCRIPTION: CHEST SINGLE VIEW COMPLETED DATE/TIME: 08/25/2017 2:59 pm REASON FOR STUDY: Shortness of breath COMPARISON: CT chest 11/11/2016, 08/23/2017 Chest films 01/18/2017, 08/23/2017 EXAM PARAMETERS: NUMBER OF VIEWS: One view. TECHNIQUE: Single frontal radiographic view of the chest acquired. RADIATION DOSE: NA LIMITATIONS: None. FINDINGS: LUNGS AND PLEURA: Bilateral lower lobe bandlike atelectasis is present, new compared to pr evious studies. No pleural effusions. No pneumothorax. Small lung nodules seen on CT exam 08/23/2017 are difficult to appreciate by plain film. MEDIASTINUM AND HILAR STRUCTURES: Mild bilateral hilar enlargement similar compared to prior plain fi lms HEART AND VASCULAR STRUCTURES: Heart normal in size. Normal vasculature. BONES: No acute findings. HARDWARE: None in the chest. OTHER: No other significant finding. IMPRESSION: Bandlike atelectasis in the lower lobes bilaterally. Multiple small pulmonary nodules seen on CT exam 08/23/2017 are difficult to appreciate by plain film . TECHNICAL DOCUMENTATION: JOB ID: [id number] [employer]- All Rights Reserved
[2017-08-25] MEDS ORDERED: MAG HYDROX/AL HYDROX/SIMETH SUSP 30 ML UDCUP PO ONE (16:07)
[2017-08-25] MEDS ORDERED: MAG HYDROX/AL HYDROX/SIMETH SUSP 30 ML UDCUP PO PRN (16:07)
[2017-08-25] MEDS: INSULIN GLARGINE,HUM.REC.ANLOG 300 UNIT/3 ML INSULN.PEN SUBCUT SCH (22:09)
[2017-08-26] MEDS: METHYLPREDNISOLONE INJ 40 MG/1 ML SDV IV SCH ×2 (05:57→14:06)
[2017-08-26] MEDS: LANSOPRAZOLE 30 MG TAB.RAP.DR PO SCH (05:57)
[2017-08-26] MEDS: IPRATROPIUM/ALBUTEROL 120 PUFF/4 GM MDI IH SCH ×2 (05:57→12:49)
[2017-08-26 07:36] LABS: ANION GAP 8 (5-19); BLOOD UREA NITROGEN 24 mg/dL (7-20); CALCIUM 9.4 mg/dL (8.4-10.2); CARBON DIOXIDE 35 mmol/L (22-30); CHLORIDE 96 mmol/L (98-107); CREATININE RESULT 0.74 mg/dL (0.52-1.25); GLUCOSE 238 mg/dL (75-110); POTASSIUM 5.2 mmol/L (3.6-5.0); SODIUM 138.9 mmol/L (137-145)
[2017-08-26] MEDS: INSULIN LISPRO 100 UNIT/ML 3 ML VIAL SUBCUT PRN ×2 (08:14→12:48)
[2017-08-26] MEDS: PAROXETINE HCL 20 MG TABLET PO SCH (09:49)
[2017-08-26] MEDS: ENOXAPARIN SODIUM INJ 80 MG/0.8 ML DISP.SYRIN SUBCUT SCH (09:50)
[2017-08-26] MEDS: NIFEDIPINE 30 MG TAB.ER.24 PO SCH (09:50)
[2017-08-26] MEDS: BUDESONIDE/FORMOTEROL 160-4.5 MCG 60 PUFF/6 GM MDI IH SCH (09:51)
[2017-08-26] MEDS: DOCUSATE SODIUM 100 MG CAPSULE PO SCH (09:51)
[2017-08-26] MEDS: LEVOFLOXACIN 500 MG/D5W RTU 500 MG/100 ML RTUPB IV SCH (09:51)
[2017-08-26 11:46] LABS: ARTERIAL BLOOD BASE EXCESS 7.1 mmol/L; ARTERIAL BLOOD O2 SATURATION 93.3 % (94-98)
[2017-08-26 12:03] VITALS: BP 141/68
[2017-08-26 12:28] LABS: AMORPHOUS SEDIMENT,URINE TRACE /HPF; APPEARANCE,URINE CLOUDY; BILIRUBIN,URINE NEGATIVE (NEGATIVE); GLUCOSE, URINE 50 mg/dL (NEGATIVE); KETONES,URINE NEGATIVE (NEGATIVE); LEUKOCYTE ESTERASE,URINE NEGATIVE (NEGATIVE); NITRITE,URINE NEGATIVE (NEGATIVE); PROTEIN,URINE NEGATIVE (NEGATIVE); UROBILINOGEN,URINE NEGATIVE mg/dL (<2.0)
--- NOTE | 2017-08-26 13:17 | PDOC DISCHARGE SUMMARY ---
General - Admit/Disc Date/PCP Admission Date/Primary Care Provider: 08/23/17 16:00 Discharge Date: 08/26/17 - Discharge Diagnosis (1) Acute on chronic respiratory failure with hypoxemia Is this a current diagnosis for this admission?: Yes Summary: Secondary to Acute COPD exacerbation: Pt was admitted to the hospital were pt was placed on BIPAP. Pt was placed on steroids, antibiotic, and breathing treatments. Pt CO2 improved once pt used BIPAP. Pt was allowed to not use BIPAP once breathing improved. Pt did well without BIPAP for greater than 36 hours. Pt's follow up ABG most likely close to pt's baseline. Pt with much improved airflow. (2) Acute exacerbation of chronic obstructive pulmonary disease (COPD) Is this a current diagnosis for this admission?: Yes Summary: Pt was placed steroids, breathing treatments, and antibiotics. Patient did require BiPAP at time of admission due to elevated CO2 however that corrected after patient was compliant with these and BiPAP. Patient's breathing function improved patient was allowed to not use BiPAP during the day or at night and follow-up ABG was within acceptable limits. Patient's gas exchange had greatly improved due to the treatment that she was receiving in the hospital. (3) Pulmonary edema Is this a current diagnosis for this admission?: Yes Summary: Patient was given 1 dose of Lasix in the emergency room due to chest x-ray report of possible pulmonary edema. Patient's presentation however was more consistent with acute exacerbation of COPD. (4) DVT (deep venous thrombosis) Is this a current diagnosis for this admission?: Yes Summary: Patient will continue on Lovenox 1mg/Kg subcu every 12 hours (5) Depression Is this a current diagnosis for this admission?: Yes Summary: Pt will continue on home medications. (6) Diabetes mellitus type 1 Is this a current diagnosis for this admission?: Yes Summary: Continue patient's home regimen. (7) GERD (gastroesophageal reflux disease) Is this a current diagnosis for this admission?: Yes Summary: Continue PPI - Additional Information Resuscitation Status: Full Code Discharge Diet: Cardiac, Diabetic Discharge Activity: Activity As Tolerated Prescriptions: Albuterol Sulfate [Ventolin 0.083% Neb 2.5 mg/3 mL Ampul] 2.5 mg NEB RTQ4HP PRN #100 vial.neb PRN Reason: Levofloxacin [Levaquin 500 mg Tablet] 500 mg PO DAILY #7 tablet Methylprednisolone [Medrol Dosepack (4 mg/Tab) 21 Tab/Dosepak] 4 mg PO ASDIR PRN #21 tab.ds.pk PRN Reason: Home Medications: Albuterol Sulfate [Albuterol Sulfate 2.5mg/3 mL] 2.5 mg NEB RTQ4HP PRN 08/23/17 Budesonide/Formoterol Fumarate [Symbicort HFA 160-4.5 mcg Inhaler 6 gm] 2 puff IH Q12 08/23/17 Enoxaparin Sodium [Lovenox Inj 120 mg/0.8 ml Disp.syrin] 120 mg SUBCUT DAILY Insulin Glargine,Hum.rec.anlog [Lantus Insulin 100 Unit/mL] 42 unit SUBCUT QHS 08/23/17 Ipratropium [place] [Atrovent 0.02% Neb 0.5 mg/2.5 ml Ampul] 0.5 mg NEB RTQ4HP PRN 08/23/17 Ipratropium/Albuterol Sulfate [Combivent Respimat 4 gm Mdi] 1 puff IH Q4 Nifedipine [Adalat cc] 60 mg PO DAILY 08/23/17 Omeprazole 40 mg PO DAILY 08/23/17 Paroxetine HCl [Paxil] 10 mg PO DAILY 08/23/17 Albuterol Sulfate [Ventolin 0.083% Neb 2.5 mg/3 mL Ampul] 2.5 mg NEB RTQ4HP PRN #100 vial.neb 08/26/17 Levofloxacin [Levaquin 500 mg Tablet] 500 mg PO DAILY #7 tablet 08/26/17 Methylprednisolone [Medrol Dosepack (4 mg/Tab) 21 Tab/Dosepak] 4 mg PO ASDIR PRN #21 tab.ds.pk 08/26/17 History of Present Illness Patient complains of: Shortness of breath History of Present Illness: ISI SESAY is a 62 year old female presents with Shortness of breath. Pt states that she has been shortness of breath for 2 weeks. Pt states that she has been coughing up phlegm that is green and dark green is color. Pt states that she has not been having fever. Pt states that she has had chills. Pt states that she was diagnosed with DVT in her right leg and has been on Lovenox for the last few months. Pt states that she was on Xarelto but clot continued to worsen. Pt states that at that time she was placed on Lovenox. Pt states that her follow up is scheduled for sep. Pt states that she is being seen by a specialist at the [place]. Pt states that her O2 Sat are normally in the 90's on 2 liters. Pt states that now she is on 4 liters Sating upper 80's and low 90's. Pt denies sick contacts. Hospital Course Hospital Course: Patient is a 8-year-old female that presented to our facility with complaint of shortness of breath. Patient was found to have a CO2 on ABG of 73. Patient was placed on BiPAP 08/11 however patient refused to use BiPAP on the next following morning patient CO2 was greater than 90 patient was still alert and oriented person place and time. Patient was then asked to use BiPAP and she was consistent with use of BiPAP. Patient's repeat ABG demonstrated a piece CO2 of 66. Patient did wear BiPAP the next following night. During the next day patient had BiPAP mask off and did not use that the next following night. Patient's ABG was checked in PCO2 was noted to be at 53. Patient's respiratory function had greatly improved since time of admission to time of discharge and therefore patient was able to be maintained on nasal cannula 2 L. Patient did well throughout hospitalization. Patient has requested to see pulmonary as outpatient for continuation of care. Physical Exam Vital Signs: Temp Pulse Resp BP Pulse Ox 98.7 F 83 17 141/68 H 95 08/26/17 11:44 08/26/17 11:44 08/26/17 11:44 08/26/17 11:44 08/26/17 11:44 Intake & Output 08/25/17 08/26/17 08/27/17 06:59 06:59 06:59 Intake Total 1480 426 Output Total 600 Balance 1480 -174 Weight 77 kg 77 kg General appearance: PRESENT: no acute distress, well-developed, well-nourished Head exam: PRESENT: atraumatic, normocephalic Eye exam: PRESENT: conjunctiva pink, EOMI. ABSENT: scleral icterus Ear exam: PRESENT: normal external ear exam Mouth exam: PRESENT: moist, tongue midline Neck exam: ABSENT: carotid bruit, JVD, lymphadenopathy, thyromegaly Respiratory exam: PRESENT: clear to auscultation taurus. ABSENT: rales, rhonchi, wheezes Cardiovascular exam: PRESENT: RRR. ABSENT: diastolic murmur, rubs, systolic murmur Pulses: PRESENT: normal dorsalis pedis pul Vascular exam: PRESENT: normal capillary refill GI/Abdominal exam: PRESENT: normal bowel sounds, soft. ABSENT: distended, guarding, mass, organolmegaly, rebound, tenderness Rectal exam: PRESENT: deferred Extremities exam: PRESENT: full ROM. ABSENT: calf tenderness, clubbing, pedal edema Neurological exam: PRESENT: alert, awake, oriented to person, oriented to place , oriented to time, oriented to situation, CN II-XII grossly intact. ABSENT: motor sensory deficit Psychiatric exam: PRESENT: appropriate affect, normal mood. ABSENT: homicidal ideation, suicidal ideation Skin exam: PRESENT: dry, intact, warm. ABSENT: cyanosis, rash Results Laboratory Results: 08/25/17 04:10 08/26/17 06:05 08/26/17 08/26/17 08/26/17 06:05 08:40 11:28 Carbonic Acid 1.60 H HCO3/H2CO3 Ratio 20:1 ABG pH 7.42 ABG pCO2 53.0 H ABG pO2 67.0 L ABG HCO3 33.2 H ABG O2 Saturation 93.3 L ABG Base Excess 7.1 FiO2 ROOM AIR Sodium 138.9 Potassium 5.2 H Chloride 96 L Carbon Dioxide 35 H Anion Gap 8 BUN 24 H Creatinine 0.74 Est GFR ( Amer) > 60 Est GFR (Non-Af Amer) > 60 Glucose 238 H Calcium 9.4 Urine Color YELLOW Urine Appearance CLOUDY Urine pH 7.0 Ur Specific [place] 1.020 Urine Protein NEGATIVE Urine Glucose (UA) 50 H Urine Ketones NEGATIVE Urine Blood NEGATIVE Urine Nitrite NEGATIVE Ur Leukocyte Esterase NEGATIVE Urine WBC (Auto) 4 Urine RBC (Auto) 2 08/23/17 08/23/17 08/24/17 17:00 22:55 05:01 Troponin I 0.015 < 0.012 < 0.012 Impressions: Chest/Abdomen CTA 08/23/17 00:00 IMPRESSION: 1. NORMAL CTA OF THE CHEST. NO PULMONARY EMBOLI. 2. SMALL LUNG NODULES DESCRIBED. 7.8 MM NODULE IN THE RIGHT LUNG MAY BE SLIGHTLY LARGER COMPARED TO DECEMBER 2014. SOME OF THIS COULD BE DUE TO SCAN TECHNIQUE AND SLICE SPACING. CONSIDER FOLLOWUP BASED ON FLEISCHNER CRITERIA. Chest X-Ray 08/25/17 11:45 IMPRESSION: Bandlike atelectasis in the lower lobes bilaterally. Multiple small pulmonary nodules seen on CT exam 08/23/2017 are difficult to appreciate by plain film. Plan Time Spent: Greater than 30 Minutes - 34 mins
== END 2017-08-26 15:16 | disposition home or self-care (01) | DRG 190 ==
LOC: ER 11:09 → 4N 14:22 → EH 16:00 → OBSVTOIN 16:00 → INTOOBSV 16:00 → UNDOADMOB 16:00 → EH 18:13 → 4N 18:13
PROVIDERS: ADMIT Hospitalist; ATTEND Hospitalist
PROC: 3E0234Z Introduction of Serum, Toxoid and Vaccine into Muscle, Percutaneous Approach (ICD-10-PCS; principal; 2017-08-26)
DX: J44.1 Chronic obstructive pulmonary disease with (acute) exacerbation (principal); J96.21 Acute and chronic respiratory failure with hypoxia; J81.0 Acute pulmonary edema; J96.22 Acute and chronic respiratory failure with hypercapnia; I82.501 Chronic embolism and thrombosis of unspecified deep veins of right lower extremity; E11.9 Type 2 diabetes mellitus without complications; I10 Essential (primary) hypertension; K21.9 Gastro-esophageal reflux disease without esophagitis; E78.5 Hyperlipidemia, unspecified; F32.9 Major depressive disorder, single episode, unspecified; Z99.81 Dependence on supplemental oxygen; Z79.01 Long term (current) use of anticoagulants; Z87.891 Personal history of nicotine dependence; Z79.4 Long term (current) use of insulin; Z79.51 Long term (current) use of inhaled steroids; Z79.899 Other long term (current) drug therapy; Z23 Encounter for immunization
CPT/HCPCS: 36415; 36600; 71010; 71275; 80048; 80053; 81001; 82550; 82803; 82962; 83036; 83880; 84439; 84443; 84484; 85025; 85027; 85610; 86140; 87040; 87070; 87086; 87205; 90686; 93005; 93010; 93306; 94640; 94660; 96374; 99285; J1650; J1815; J1956; J2920; J2930; J3490; J7620

== ENCOUNTER 2018-04-07 06:29 | Day surgery (SDC) | payer OTHER, MEDICAID ==
[~2018-04-07 06:29] MED LIST changes: -ALBUTEROL SULFATE 0.083% NEB 2.5 MG/3 ML AMPUL NEB ONE; +KETOROLAC TROMETHAMINE 0.45% 4 DROP/0.4 ML DROPERETTE OS PRN
[2018-04-07] MEDS ORDERED: MIDAZOLAM 2 MG/2 ML INJ ONE ×2 (06:44)
[2018-04-07] MEDS ORDERED: FENTANYL CITRATE INJ/PF 100 MCG/2 ML AMPUL ONE (06:44)
[2018-04-07] MEDS: CYCLOPENTOLATE 0.2%/PHENYLEPHRINE 1% OPH SOLN 2 ML OS PRN ×3 (06:54→07:11)
[2018-04-07] MEDS: TROPICAMIDE 1% OPH SOLN 3 ML OS PRN ×3 (06:54→07:12)
[2018-04-07] MEDS: BESIFLOXACIN HCL 0.6% OPH SUSP 5 ML BOTTLE OS PRN ×4 (06:54→07:51)
[2018-04-07] MEDS: TETRACAINE HCL 0.5% OPH SOLN 2 ML OS PRN ×3 (06:54→07:33)
[2018-04-07] MEDS ORDERED: LIDOCAINE 1% INJ-PF (10 MG/ML) 30 ML SDV ONE ×3 (07:10→07:19)
[2018-04-07] MEDS ORDERED: EPINEPHRINE INJ/PF 1 MG/1 ML AMPULE ONE (07:10)
[2018-04-07] MEDS ORDERED: CHONDR SU A NA/HYALUR INTRAOC KIT (SURGICARE) ONE (07:11)
[2018-04-07] MEDS ORDERED: ALBUTEROL SULFATE 0.083% NEB 2.5 MG/3 ML AMPUL NEB ONE (07:15)
--- NOTE | 2018-04-07 23:36 | DISCHARGE SUMMARY E ---
Discharge Summary NAME: ISI SESAY : 1955 AGE: 62Y ADMITTED: 04/07/2018 DISCHARGED: FINAL DIAGNOSIS: Cataract, left eye. HOSPITAL COURSE: This is a 62-year-old female who underwent cataract extraction of the left eye. She underwent surgery because she was having difficulty seeing small print. DISCHARGE INSTRUCTIONS: She should be on a regular diet. No bending at her waist, no heavy lifting. She should use her Besivance, Ilevro and Durezol at 3:00 p.m. and 8:00 p.m. Sleep with a rigid shield. I will see her for a 1-day postoperative tomorrow. DICTATING PHYSICIAN: BOGDAN MCINTYRE M.D. [id number] PHY#: [id number] 2014 ID: [id number] JOB#: [id number] ACCT: [id number] cc:BOGDAN MCINTYRE M.D. >
--- NOTE | 2018-04-07 23:36 | [facility] OPERATIVE REPORT E ---
[facility] Operative Report NAME: ISI SESAY AGE: 62Y DATE OF SURGERY: 04/07/2018 ROOM: PREOPERATIVE DIAGNOSIS: CATARACT, LEFT EYE. POSTOPERATIVE DIAGNOSIS: CATARACT, LEFT EYE. OPERATION: Cataract extraction with insertion of an IOL of the left eye. SURGEON: BOGDAN MCINTYRE M.D. ANESTHESIA: Topical. PROCEDURE: After obtaining appropriate consent, the patient's left eye was prepped and draped in sterile fashion as well as the surgeon in a sterile manner and cataract surgery was started. First a paracentesis blade was used to make a side-port incision. Viscoelastic was used to inflate the anterior chamber. Next a 2.4 mm incision was made with a 2.4 mm blade, clear corneal temporally. A continuous capsulorrhexis was made using a cystotome and Utrata forceps. Following this hydrodissection was carried out to make the lens fully loose and mobile and it was rotated 90 degrees. Following this, a lnldqo-fmk-hahxsoo technique was used to phacoemulsify the lens with a CDE of 7.90. The remaining cortex was removed with irrigation/aspiration. Provisc was instilled into the capsular bag to inflate the bag. A SN60WF, 15.5 diopter lens was placed. The remaining viscoelastic material was removed with irrigation/aspiration. Following this, the incision was found to be watertight. Besivance was instilled into the eye and a protective shield was placed over the eye. The patient returned to the postoperative recovery in stable condition. DICTATING PHYSICIAN: BOGDAN MCINTYRE M.D. [id number] PHY#: [id number] 2014 ID: [id number] JOB#: [id number] ACCT: [id number] cc:BOGDAN MCINTYRE M.D. >
== END 2018-04-07 08:35 | disposition home or self-care (01) ==
LOC: SC 06:29
PROVIDERS: ATTEND Internal Medicine
DX: H25.813 Combined forms of age-related cataract, bilateral (principal); H43.813 Vitreous degeneration, bilateral; E11.9 Type 2 diabetes mellitus without complications; J44.9 Chronic obstructive pulmonary disease, unspecified; K21.9 Gastro-esophageal reflux disease without esophagitis; Z87.891 Personal history of nicotine dependence; Z88.8 Allergy status to other drugs, medicaments and biological substances; Z79.01 Long term (current) use of anticoagulants; Z86.718 Personal history of other venous thrombosis and embolism; Z79.4 Long term (current) use of insulin; Z79.51 Long term (current) use of inhaled steroids
CPT/HCPCS: 66984; 82962; V2632; J2250; J3490 ×2; J0171; J3010; 142

== ENCOUNTER 2018-04-28 06:44 | Day surgery (SDC) | payer MEDICAID, OTHER ==
[~2018-04-28 06:44] MED LIST changes: +KETOROLAC TROMETHAMINE 0.45% 4 DROP/0.4 ML DROPERETTE OD PRN; -KETOROLAC TROMETHAMINE 0.45% 4 DROP/0.4 ML DROPERETTE OS PRN
[2018-04-28] MEDS: TETRACAINE HCL 0.5% OPH SOLN 2 ML OD PRN ×2 (06:59→07:41)
[2018-04-28] MEDS: CYCLOPENTOLATE 0.2%/PHENYLEPHRINE 1% OPH SOLN 2 ML OD PRN ×3 (07:00→07:29)
[2018-04-28] MEDS: TROPICAMIDE 1% OPH SOLN 3 ML OD PRN ×3 (07:00→07:29)
[2018-04-28] MEDS: BESIFLOXACIN HCL 0.6% OPH SUSP 5 ML BOTTLE OD PRN ×2 (07:01→07:30)
[2018-04-28] MEDS ORDERED: CHONDR SU A NA/HYALUR INTRAOC KIT (SURGICARE) ONE (07:10)
[2018-04-28] MEDS ORDERED: LIDOCAINE 1% INJ-PF (10 MG/ML) 30 ML SDV ONE (07:10)
[2018-04-28] MEDS ORDERED: EPINEPHRINE INJ/PF 1 MG/1 ML AMPULE ONE (07:10)
[2018-04-28] MEDS ORDERED: MIDAZOLAM 2 MG/2 ML INJ ONE (07:22)
--- NOTE | 2018-04-28 20:06 | [facility] OPERATIVE REPORT E ---
[facility] Operative Report NAME: ISI SESAY AGE: 62Y DATE OF SURGERY: 04/28/2018 ROOM: PREOPERATIVE DIAGNOSIS: CATARACT, RIGHT EYE. POSTOPERATIVE DIAGNOSIS: CATARACT, RIGHT EYE. OPERATION: Cataract extraction with insertion of an IOL of the right eye. SURGEON: BOGDAN MCINTYRE M.D. ANESTHESIA: Topical. PROCEDURE: After obtaining appropriate consent, the patient's right eye was prepped and draped in sterile fashion as well as the surgeon in a sterile manner and cataract surgery was started. First a paracentesis blade was used to make a side-port incision. Viscoelastic was used to inflate the anterior chamber. Next a 2.4 mm incision was made with a 2.4 mm blade, clear corneal temporally. A continuous capsulorrhexis was made using a cystotome and Utrata forceps. Following this hydrodissection was carried out to make the lens fully loose and mobile and it was rotated 90 degrees. Following this, a elched-uzy-zqqpywb technique was used to phacoemulsify the lens with a CDE of 10.89. The remaining cortex was removed with irrigation/aspiration. Provisc was instilled into the capsular bag to inflate the bag. A SN60WF, 16.0 diopter lens was placed. The remaining viscoelastic material was removed with irrigation/aspiration. Following this, the incision was found to be watertight. Besivance was instilled into the eye and a protective shield was placed over the eye. The patient returned to the postoperative recovery in stable condition. DICTATING PHYSICIAN: BOGDAN MCINTYRE M.D. [id number] PHY#: [id number] 1932 ID: [id number] JOB#: [id number] ACCT: [id number] cc:BOGDAN MCINTYRE M.D. >
--- NOTE | 2018-04-28 21:26 | DISCHARGE SUMMARY E ---
Discharge Summary NAME: ISI SESAY : 1955 AGE: 62Y ADMITTED: 04/28/2018 DISCHARGED: 04/28/2018 HISTORY: This is a 62-year-old female who underwent cataract extraction of the right eye. DIAGNOSIS: Cataract, right eye. HOSPITAL COURSE: She underwent surgery because she has trouble seeing road signs and small print. She should be on a regular diet. No bending at her waist. No heavy lifting. She should use her Besivance, Ilevro, and Durezol at 3:00 p.m. and 8:00 p.m. and sleep with a rigid shield, and I will see her for a 1-day postoperative tomorrow. DICTATING PHYSICIAN: BOGDAN MCINTYRE M.D. [id number] PHY#: [id number] 1932 ID: [id number] JOB#: [id number] ACCT: [id number] cc:BOGDAN MCINTYRE M.D. >
== END 2018-04-28 08:59 | disposition home or self-care (01) ==
LOC: SC 06:44
PROVIDERS: ATTEND Internal Medicine
DX: H25.811 Combined forms of age-related cataract, right eye (principal); Z96.1 Presence of intraocular lens; I10 Essential (primary) hypertension; E11.9 Type 2 diabetes mellitus without complications; F12.90 Cannabis use, unspecified, uncomplicated; Z88.8 Allergy status to other drugs, medicaments and biological substances
CPT/HCPCS: 66984; 82962; V2632; J2250; J3490 ×2; J0171; 142

== ENCOUNTER → 2020-03-05 | Outpatient (CLI) | payer OTHER ==
--- NOTE | 2020-03-05 15:00 | RADIOLOGY REPORT (SQ) ---
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 22 INTERNUCLEAR OPHTHALMOPLEGIA, LEFT EYE COMPARISON: None. TECHNIQUE: Multiplanar imaging includes noncontrasted T1, T2, FLAIR, diffusion with ADC map and post gadolinium contrast T1 sequences. Additional thin section axial and coronal pre and postcontrast T1 weighted images. Axial and coronal fat-sat T2 weighted images through the orbits. Images stored on PACS. CONTRAST TYPE AND DOSE: 10 mL Prohance. RENAL FUNCTION: Not indicated. ACR Type II contrast agent associated with few, if any, unconfounded cases of NSF LIMITATIONS: None. FINDINGS: ANATOMY: No brain parenchymal anomalies. Normal vascular flow voids. Pituitary fossa chris l. CSF SPACES: There is prominent dural enhancement over the bifrontal region adjacent to the frontal si nuses, best shown on axial whole brain images 11 through 15. CEREBRUM: Diffusion-weighted images are negative for acute ischemic change. No acute intracranial he morrhage, mass effect, or midline shift. Spotty bifrontal and biparietal increased FLAIR/ T2 signal likely gliosis along perivascular spaces o r mild small vessel disease. POSTERIOR FOSSA: No signal alteration. No brainstem/ida infarct. No hemorrhage. No edema, masses, or mass effect. Internal auditory canals, cerebellopontine angles, mastoids normal. No enhancing lesi ons. No abnormal enhancement post contrast. DIFFUSION IMAGING: Negative for acute or subacute infarction. ORBITS and PARANASAL SINUSES: Patient is post endoscopic surgery with resection of the anterior 3rd n emmy septum. Extensive mucocele formation is seen throughout the right and left frontal sinus, bilateral ethmoid a ir cells and bilateral sphenoid sinuses. The posterior wall of the right frontal sinus is not identified. Enhancing frontal sinus mucosa abut s enhancing bifrontal dura best shown on coronal thin section images 8-11. The right and left ethmoid air cells are expanded by mucocele bilaterally. There is a rind of contra st enhancement along the medial larsen and moves of the bilateral orbits, with enhancement involving t he superior rectus, superior oblique and medial rectus muscles bilaterally. These changes are best s hown on coronal thin-section images 8 through 11. Sphenoid sinuses completely opacified with mucocele. There is dense bony sclerosis around the periph miguel angel of the sphenoid sinus. If conjugate these. Globes are otherwise unremarkable aside from bilateral cataract surgery. No abn ormal masses or enhancement along the optic nerves. These findings were discussed with Dr. Trejo. OTHER: No other significant finding. IMPRESSION: Extensive mucocele formation throughout the frontal, ethmoid and sphenoid sinuses. There is pressure erosion through the dorsal wall of the frontal sinus with abnormal frontal intracra nial dural enhancement. There is also abnormal contrast enhancement along the medial larsen of the ri ght and left orbit, with enhancement of bilateral extraocular muscles as above. Findings discussed with Dr. Trejo EVIDENCE OF ACUTE STROKE: NO. TECHNICAL DOCUMENTATION: JOB ID: [id number] 2010 [employer]- All Rights Reserved Reading location - IP/workstation name: [email or web address]
== END ==
LOC: RAD 12:18
PROVIDERS: ATTEND Internal Medicine
DX: H53.2 Diplopia (principal); H51.22 Internuclear ophthalmoplegia, left eye; J34.1 Cyst and mucocele of nose and nasal sinus
CPT/HCPCS: 82565; 70553; A9576

== ENCOUNTER → 2020-07-24 | Outpatient (CLI) | payer OTHER | LOC: RAD 12:33 | PROVIDERS: ATTEND Internal Medicine Hematology & Oncology | DX: C30.0 Malignant neoplasm of nasal cavity (principal) | CPT/HCPCS: 70470; 70491; 71260; 82565 ==

== ENCOUNTER 2020-07-25 11:38 | Inpatient (IN) | payer OTHER, MEDICARE ==
[2020-07-25] MEDS ORDERED: DEXAMETHASONE SOD PHOS INJ 10 MG/1 ML VIAL IV ONE (12:04)
[2020-07-25] MEDS ORDERED: IPRATROPIUM/ALBUTEROL 0.5-2.5 MG/3 ML AMPUL NEB ONE (12:05)
--- NOTE | 2020-07-25 12:13 | ER Document Report ---
ED General - General Stated Complaint: DIFFICULTY BREATHING Time Seen by Provider: 07/25/20 11:44 Primary Care Provider: LOIS CERDA MD [Primary Care Provider] - Follow up as needed TRAVEL OUTSIDE OF THE [place] IN LAST 30 DAYS: No - HPI Notes: Chief complaint: Altered mental status History of present illness: 65-year-old female followed by Dr. Gonzalez in the oncology center locally with a history of nasopharyngeal CA and severe oxygen dependent COPD transported here via EMS due to altered mental status and severe hypoxemia after being found by her friend in an unresponsive state with diffuse cyanosis and decreased respirations. EMS noted that the pupils were pinpoint. They gave her a total of 4 mg of IV Narcan. Patient was awake and alert by time of arrival here and was saturating 100% on a nonrebreather mask. Her initial sat on 4 L of oxygen was 58%. We note that the patient is chronically on a fentanyl patch for pain. She is recently had addition of Flexeril to her usual medications because of a fall with strained muscles in her back. Past medical history includes Past medical history includes nasopharyngeal cancer status post XRT, COPD with chronic respiratory failure and oxygen dependency, CHF, DVT, diabetes mellitus, gastroesophageal reflux. Patient is on full CODE STATUS Patient regularly takes Eliquis. - Related Data Allergies/Adverse Reactions: metformin Allergy (Verified 07/25/20 12:35) mosquito bites Allergy (Severe, Uncoded 04/07/18 06:58) Anaphylaxis Past Medical History - General Information source: Patient, Friend, [facility] Records Cannot obtain history due to: Altered mental status - Social History Smoking Status: Former Smoker Frequency of alcohol use: None Drug Abuse: None Family History: CAD, DM, Hypertension - Past Medical History Cardiac Medical History: Reports: Hx DVT - Diagnosed 01/18/2017., Hx Hypertension, Hx Heart Murmur Denies: Hx Congestive Heart Failure, Hx Heart Attack, Hx Hypercholesterolemia, Hx Pulmonary Embolism Pulmonary Medical History: Reports: Hx COPD, Hx Pneumonia Denies: Hx Asthma, Hx Sleep Apnea Neurological Medical History: Denies: Hx Cerebrovascular Accident, Hx Seizures Endocrine Medical History: Reports: Hx Diabetes Mellitus Type 1. Denies: Hx Diabetes Mellitus Type 2, Hx Hyperthyroidism, Hx Hypothyroidism Renal/ Medical History: Denies: Hx Peritoneal Dialysis Malignancy Medical History: Reports: Other - Nasopharyngeal CA GI Medical History: Reports: Hx Gastroesophageal Reflux Disease. Denies: Hx Cirrhosis, Hx Hepatitis, Hx Hiatal Hernia, Hx Ulcer Musculoskeletal Medical History: Reports Hx Arthritis - Joint pain, without specific diagnosis of arthritis. Psychiatric Medical History: Reports: Hx Depression Infectious Medical History: Denies: Hx C-Diff, Hx Hepatitis, Hx MRSA Past Surgical History: Reports: Hx Orthopedic Surgery - Carpal tunnel release., Other - Lung biopsy, revealing benign nodules.. Denies: Hx Hysterectomy, Hx Mastectomy, Hx Open Heart Surgery, Hx Pacemaker - Immunizations Hx Diphtheria, Pertussis, Tetanus Vaccination: Yes Hx Pneumococcal Vaccination: 01/01/15 Review of Systems - Review of Systems -: Yes ROS unobtainable due to patient's medical condition Physical Exam - Vital signs Vitals: Temp 97.9 F 07/25/20 11:39 Interpretation: Tachypneic Notes: GENERAL: Mildly obese female approximately stated age who is sleepy but appropriately responsive appearing mildly tachypneic. SKIN: Chronic hyperpigmentation of the facial area resulting from long-term XRT. Good turgor no rashes. HEAD: Normocephalic atraumatic. EYES: Prominent edema both eyes which patient and her testboard operator report to be a chronic finding related to her cancer and XRT. PERRLA. EOMI. Conjunctivae mildly injected bilaterally. EARS: CANALS AND TMS CLEAR. NOSE: CLEAR. MOUTH: Tacky oral mucosa. Extremely poor dentition. No stridor or edema. No drooling. NECK: Supple. No masses or thyromegaly. No adenopathy. Carotids 2+ without bruits. No JVD. BACK: Symmetrical without tenderness. CHEST: Rattling cough with coarse rhonchi bilaterally. Mildly tachypneic. Mild use of accessory muscles. Breath sounds are symmetrical. HEART: Regular rhythm. No murmur gallop or rub. ABDOMEN: Soft nontender without masses, organomegaly or rebound. Bowel sounds normally active. No bruits. GENITALIA: Deferred. EXTREMITIES: No edema. No calf tenderness. Cap refill less than 1.5 seconds. Dorsalis pedis and posterior tibial pulses 3+ and symmetrical. NEUROLOGICAL: GCS 15. Sleepy with eyes open. Patient was disoriented to date but appropriately oriented to person and place. Follows commands. Speech is mildly slurred. Cranial nerves II through XII intact. Sensorimotor function are grossly normal and patient moves all 4 extremities symmetrically. PSYCHIATRIC: Flat affect. Course - Re-evaluation Re-evalutation: 07/25/20 15:47 Findings consistent with acute respiratory decompensation superimposed on chronic respiratory failure probably aggravated by excessive opiate analgesic medication combined with muscle relaxer. She appears to have developed an aspiration pneumonia. I started on IV antibiotics. She has been placed on BiPAP. She is improved clinically on BiPAP. Findings have been reviewed with the on-call hospitalist and she will be admitted to [facility].. - Vital Signs Vital signs: Temp Pulse Resp BP Pulse Ox 97.8 F 18 101/63 99 07/25/20 15:46 07/25/20 15:31 07/25/20 15:31 07/25/20 15:31 - Laboratory Result Diagrams: 07/25/20 13:15 07/25/20 13:15 Laboratory results interpreted by me: 07/25/20 07/25/20 07/25/20 12:05 12:58 13:15 WBC 18.7 H RBC 3.41 L Hgb 10.0 L Hct 31.0 L RDW 15.5 H Plt Count 468 H Seg Neuts % (Manual) 88 H Band Neutrophils % 8 H Lymphocytes % (Manual) 0 L Monocytes % (Manual) 1 L Myelocytes % 2 H Promyelocytes % 1 H Abs Neuts (Manual) 18.5 H Abs Lymphs (Manual) 0.0 L Carbonic Acid 2.59 H ABG pH 7.17 L* ABG pCO2 86.2 H* ABG pO2 73.5 L ABG HCO3 30.9 H ABG Total CO2 33.6 H ABG O2 Saturation 89.8 L BUN Glucose POC Glucose 128 H NT-Pro-B Natriuret Pep Total Protein Albumin Salicylates Acetaminophen 07/25/20 07/25/20 07/25/20 13:15 13:15 14:40 WBC RBC Hgb Hct RDW Plt Count Seg Neuts % (Manual) Band Neutrophils % Lymphocytes % (Manual) Monocytes % (Manual) Myelocytes % Promyelocytes % Abs Neuts (Manual) Abs Lymphs (Manual) Carbonic Acid 1.99 H ABG pH 7.26 L ABG pCO2 66.0 H ABG pO2 ABG HCO3 29.1 H ABG Total CO2 31.1 H ABG O2 Saturation BUN 36 H Glucose 126 H POC Glucose NT-Pro-B Natriuret Pep 1480 H Total Protein 5.8 L Albumin 3.0 L Salicylates < 1.0 L Acetaminophen < 10 L Critical Care Note - Critical Care Note Total time excluding time spent on procedures (mins): 105 - Aspiration pneumonitis, altered mental status, respiratory failure requiring BiPAP Discharge - Discharge Clinical Impression: Acute on chronic respiratory failure, Accidental overdose opiate, Malignant neoplasm of accessory sinus, unspecified Condition: Fair Disposition: ADMITTED INPATIENT Admitting Provider: John (Hospitalist) Unit Admitted: IMCU Referrals: LOIS CERDA MD [Primary Care Provider] - Follow up as needed
[2020-07-25 12:22] LABS: ARTERIAL BLOOD BASE EXCESS -0.1 mmol/L; ARTERIAL BLOOD H2CO3 2.59 mmol/L (1.05-1.35); ARTERIAL BLOOD HCO3 30.9 mmol/L (20-24); ARTERIAL BLOOD O2 SATURATION 89.8 % (94-98); ARTERIAL BLOOD PO2 73.5 mmHg (80-100); ARTERIAL BLOOD TOTAL CO2 33.6 mmol/L (21-25)
[2020-07-25 12:29] LABS: ARTERIAL BLOOD PCO2 86.2 mmHg (35-45); ARTERIAL BLOOD PH 7.17 (7.35-7.45)
[2020-07-25 12:30] LABS: ARTERIAL BLOOD FIO2 4L
--- NOTE | 2020-07-25 13:01 | RADIOLOGY REPORT (SQ) ---
EXAM DESCRIPTION: CHEST SINGLE VIEW IMAGES COMPLETED DATE/TIME: 07/25/2020 12:49 pm REASON FOR STUDY: dyspnea COMPARISON: None. EXAM PARAMETERS: NUMBER OF VIEWS: One view. TECHNIQUE: Single frontal radiographic view of the chest acquired. RADIATION DOSE: NA LIMITATIONS: None. FINDINGS: LUNGS AND PLEURA: Questionable hazy opacification the right upper lobe. MEDIASTINUM AND HILAR STRUCTURES: No masses. Contour normal. HEART AND VASCULAR STRUCTURES: Heart normal in size. Normal vasculature. BONES: No acute findings. HARDWARE: Injection port on the left. OTHER: No other significant finding. IMPRESSION: Cannot exclude a limited right upper lobe pneumonia. TECHNICAL DOCUMENTATION: JOB ID: [id number] 2010 [employer]- All Rights Reserved Reading location - IP/workstation name: [email or web address]
[2020-07-25 13:36] LABS: MEAN CORPUSCULAR HEMOGLOBIN 29.4 pg (27.0-33.4); MEAN CORPUSCULAR HGB CONC 32.4 g/dL (32.0-36.0); MEAN CORPUSCULAR VOLUME 91 fl (80-97); PLATELET COUNT 468 10^3/uL (150-450); RED BLOOD COUNT 3.41 10^6/uL (3.72-5.28); RED CELL DISTRIBUTION WIDTH 15.5 % (11.5-14.0); WHITE BLOOD COUNT 18.7 10^3/uL (4.0-10.5)
[2020-07-25 13:48] LABS: INTERNATIONAL RATION (INR) 1.08; PROTHROMBIN TIME 14.2 SEC (11.4-15.4)
[2020-07-25 13:49] LABS: PARTIAL THROMBOPLASTIN TIME 28.5 SEC (23.5-35.8)
[2020-07-25 13:57] LABS: ALKALINE PHOSPHATASE 95 U/L (38-126); ANION GAP 5 (5-19); ASPARTATE AMINO TRANSFERASE 26 U/L (14-36); BILIRUBIN,DIRECT 0.3 mg/dL (0.0-0.4); BILIRUBIN,TOTAL 0.4 mg/dL (0.2-1.3); BLOOD UREA NITROGEN 36 mg/dL (7-20); CALCIUM 9.2 mg/dL (8.4-10.2); CARBON DIOXIDE 30 mmol/L (22-30); CHLORIDE 105 mmol/L (98-107); GLUCOSE 126 mg/dL (75-110); TOTAL PROTEIN 5.8 g/dL (6.3-8.2)
[2020-07-25 14:00] LABS: ACETAMINOPHEN < 10 ug/mL (10-30); ALCOHOL < 10 mg/dL (NONE DETECTED); SALICYLATE < 1.0 mg/dL (2.0-20.0)
[2020-07-25 14:12] LABS: ABSOLUTE MONOCYTES # (MANUAL) 0.2 10^3/uL (0.1-1.4); BAND NEUTROPHILS % (MANUAL) 8 % (3-5); BASOPHILS % (MANUAL) 0 % (0-2); EOSINOPHILS % (MANUAL) 0 % (0-6); LYMPHOCYTES % (MANUAL) 0 % (13-45); MONOCYTES % (MANUAL) 1 % (3-13); PROMYELOCYTES % (MANUAL) 1 % (0); SEGMENTED NEUTROPHILS % (MAN) 88 % (42-78); TOTAL CELLS COUNTED 100
[2020-07-25 14:13] LABS: PLATELET COMMENT INCREASED; RBC MORPHOLOGY COMMENT NORMO-CYTIC/CHROMIC
[2020-07-25 14:14] LABS: MYELOCYTES % (MANUAL) 2 % (0)
[2020-07-25] MEDS ORDERED: CEFTRIAXONE INJ 1000 MG VIAL IV ONE (14:34)
[2020-07-25 15:00] LABS: ARTERIAL BLOOD BASE EXCESS 0.9 mmol/L; ARTERIAL BLOOD H2CO3 1.99 mmol/L (1.05-1.35); ARTERIAL BLOOD HCO3 29.1 mmol/L (20-24); ARTERIAL BLOOD PH 7.26 (7.35-7.45); ARTERIAL BLOOD PO2 94.7 mmHg (80-100); ARTERIAL BLOOD TOTAL CO2 31.1 mmol/L (21-25)
[2020-07-25 15:06] LABS: ARTERIAL BLOOD FIO2 60%
[2020-07-25 15:47] LABS: APPEARANCE,URINE SLIGHTLY-CLOUDY; BILIRUBIN,URINE NEGATIVE (NEGATIVE); COLOR,URINE YELLOW; GLUCOSE, URINE NEGATIVE (NEGATIVE); KETONES,URINE NEGATIVE (NEGATIVE); PROTEIN,URINE 30 mg/dL (NEGATIVE); UROBILINOGEN,URINE NEGATIVE mg/dL (<2.0)
[2020-07-25 16:02] LABS: URINE AMPHETAMINES SCREEN NEGATIVE; URINE BARBITURATES SCREEN NEGATIVE; URINE BENZODIAZEPINES SCREEN NEGATIVE; URINE COCAINE SCREEN NEGATIVE; URINE METHADONE SCREEN NEGATIVE; URINE PHENCYCLIDINE SCREEN NEGATIVE
[2020-07-25 16:05] LABS: URINE MARIJUANA (THC) SCREEN UNCONFIRMED POSITIVE
[2020-07-25] MEDS ORDERED: DEXTROSE 40% GEL 15 GM TUBE PO PRN ×2 (16:36)
[2020-07-25] MEDS ORDERED: GLUCAGON,HUMAN RECOMB 1 MG INJ SUBCUT PRN (16:36)
[2020-07-25] MEDS ORDERED: DEXTROSE 50%-WATER 25 GM/50 ML DISP.SYRIN IV PRN ×2 (16:36)
[2020-07-25] MEDS ORDERED: NORMAL SALINE 1000 ML 1,000 ML IV PRN (16:45)
[2020-07-25] MEDS ORDERED: ONDANSETRON 4 MG TAB.RAPDIS PO PRN (16:45)
[2020-07-25] MEDS ORDERED: IPRATROPIUM/ALBUTEROL 0.5-2.5 MG/3 ML AMPUL NEB PRN (16:45)
--- NOTE | 2020-07-25 18:06 | PDOC H&P ---
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 Lerma) who was brought to the ED by EMS after being found unresponsive at home. History gathered from friends, EMS, ED and Dr. Lerma due to AMS. Ms. Rubio lives with a friend. Over the last few weeks, she has become much more debilitated, weak and somnolent. Some days, she sleeps 20 out of 24 hours. She has developed a decubitus ulcer of her coccyx due to the amount of time she spends in bed. She has had increased oxygen needs and is now requiring at least 3 L O2 via NC throughout the day (previously only on O2 at night). She has been much more ataxic lately. She suffered a mechanical fall a few days ago and has had increased back pain since her fall. She is followed by a windows technical specialist who prescribes her a Fentanyl patch, Ativan and Percocet - the doses of these medications have not changed recently. However, after her fall and increased back pain, her doctor prescribed Flexeril, which she has only been taking for the last 2 days. She was last seen normal around midnight on 07/25 when she took her medications. When her friend checked on her around 9 AM on 07/25, she was found to be unresponsive and appeared cyanotic, so EMS were called. She responded quickly to Narcan administration. In the ED, she was placed on BIPAP for respiratory acidosis. 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 Psychiatric Medical History: Reports: Depression Hematology: Denies: Anemia, Sickle Cell Disease Infectious Medical History: Denies: Clostridium Difficile, Methicillin-Resistant Staph Aureus Past Surgical History Past Surgical History: Reports: Orthopedic Surgery - Carpal tunnel release., Other - Lung biopsy, revealing benign nodules. Denies: Amputation, Hysterectomy, Mastectomy, Pacemaker Social History Information Source: POA - Power of Nursery Helper, Emergency Med Personnel, Office, [facility] Records Lives with: Friend Smoking Status: Former Smoker Electronic Cigarette use?: No Frequency of Alcohol Use: Rare Hx Recreational Drug Use: No Drugs: None Hx Prescription Drug Abuse: No - Advance Directive Resuscitation Status: Do Not Resuscitate Surrogate healthcare decision maker:: Catherine Ruelas NP Family History Family History: CAD, DM, Hypertension Parental Family History Reviewed: Yes Children Family History Reviewed: Yes Sibling(s) Family History Reviewed.: Yes Medication/Allergy Home Medications: Albuterol Sulfate [Albuterol Sulfate 2.5mg/3 mL] 2.5 mg NEB RTQ4HP PRN 08/23/17 Budesonide/Formoterol Fumarate [Symbicort HFA 160-4.5 mcg Inhaler 6 gm] 2 puff IH Q12 08/23/17 Enoxaparin Sodium [Lovenox Inj 120 mg/0.8 ml Disp.syrin] 120 mg SUBCUT DAILY 08/23/17 Insulin Glargine,Hum.rec.anlog [Lantus Insulin 100 Unit/mL Insulin Pen] 42 unit SUBCUT QHS 08/23/17 Ipratropium [place] [Atrovent 0.02% Neb 0.5 mg/2.5 ml Ampul] 0.5 mg NEB RTQ4HP PRN 08/23/17 Ipratropium/Albuterol Sulfate [Combivent Respimat 4 gm Mdi] 1 puff IH Q4 08/23/17 Nifedipine [Adalat cc] 60 mg PO DAILY 08/23/17 Omeprazole 40 mg PO DAILY 08/23/17 Paroxetine HCl [Paxil] 10 mg PO DAILY 08/23/17 Albuterol Sulfate [Ventolin 0.083% Neb 2.5 mg/3 mL Ampul] 2.5 mg NEB RTQ4HP PRN #100 vial.neb 08/26/17 Ketorolac Tromethamine 1 drop OP ASDIR 03/31/18 Moxifloxacin HCl [Vigamox] 1 drop OP ASDIR 03/31/18 Prednisolone Acetate [Pred Forte] 1 drop OP ASDIR 03/31/18 Allergies/Adverse Reactions: metformin Allergy (Verified 07/25/20 12:35) mosquito bites Allergy (Severe, Uncoded 04/07/18 06:58) Anaphylaxis Review of Systems ROS unobtainable: Due to mental status Physical Exam Vital Signs: Temp Pulse Resp BP Pulse Ox 97.8 F 18 107/74 95 07/25/20 15:46 07/25/20 17:01 07/25/20 17:01 07/25/20 17:01 Intake & Output 07/24/20 07/25/20 07/26/20 06:59 06:59 06:59 Intake Total 100 Balance 100 Weight 79.379 kg General appearance: PRESENT: obese Head exam: PRESENT: atraumatic Eye exam: PRESENT: periorbital swelling, other - L>R proptosis. ABSENT: scleral icterus Mouth exam: PRESENT: dry mucosa Throat exam: ABSENT: post pharyngeal erythema Neck exam: ABSENT: JVD Respiratory exam: PRESENT: clear to auscultation taurus, other - on BIPAP Cardiovascular exam: PRESENT: RRR GI/Abdominal exam: PRESENT: normal bowel sounds, soft. ABSENT: distended, firm, guarding, tenderness Extremities exam: ABSENT: pedal edema Neurological exam: PRESENT: altered, oriented to person. ABSENT: oriented to place, oriented to time, oriented to situation Skin exam: ABSENT: rash Results Laboratory Results: 07/25/20 13:15 07/25/20 13:15 07/25/20 07/25/20 07/25/20 12:05 13:15 13:15 WBC 18.7 H RBC 3.41 L Hgb 10.0 L Hct 31.0 L MCV 91 MCH 29.4 MCHC 32.4 RDW 15.5 H Plt Count 468 H Seg Neutrophils % Not Reportable Carbonic Acid 2.59 H HCO3/H2CO3 Ratio 11:1 ABG pH 7.17 L* ABG pCO2 86.2 H* ABG pO2 73.5 L ABG HCO3 30.9 H ABG O2 Saturation 89.8 L ABG Base Excess -0.1 FiO2 4L Sodium 139.7 Potassium 4.0 Chloride 105 Carbon Dioxide 30 Anion Gap 5 BUN 36 H Creatinine 0.85 Est GFR ( Amer) > 60 Glucose 126 H Lactic Acid Calcium 9.2 Magnesium 1.9 Total Bilirubin 0.4 AST 26 Alkaline Phosphatase 95 Total Protein 5.8 L Albumin 3.0 L Urine Color Urine Appearance Urine pH Ur Specific [place] Urine Protein Urine Glucose (UA) Urine Ketones Urine Blood Urine RBC (Auto) 07/25/20 07/25/20 07/25/20 13:15 14:40 15:26 WBC RBC Hgb Hct MCV MCH MCHC RDW Plt Count Seg Neutrophils % Carbonic Acid 1.99 H HCO3/H2CO3 Ratio 14:1 ABG pH 7.26 L ABG pCO2 66.0 H ABG pO2 94.7 ABG HCO3 29.1 H ABG O2 Saturation 96.0 ABG Base Excess 0.9 FiO2 60% Sodium Potassium Chloride Carbon Dioxide Anion Gap BUN Creatinine Est GFR ( Amer) Glucose Lactic Acid 0.7 Calcium Magnesium Total Bilirubin AST Alkaline Phosphatase Total Protein Albumin Urine Color YELLOW Urine Appearance SLIGHTLY-CLOUDY Urine pH 5.0 Ur Specific [place] 1.020 Urine Protein 30 H Urine Glucose (UA) NEGATIVE Urine Ketones NEGATIVE Urine Blood MODERATE H Urine RBC (Auto) 0 07/25/20 13:15 NT-Pro-B Natriuret Pep 1480 H Impressions: Chest X-Ray 07/25/20 12:03 IMPRESSION: Cannot exclude a limited right upper lobe pneumonia. Assessment and Plan - Diagnosis (1) Acute respiratory failure with hypoxia and hypercapnia Is this a current diagnosis for this admission?: Yes (2) Metastatic squamous cell carcinoma Is this a current diagnosis for this admission?: Yes (3) Generalized weakness Is this a current diagnosis for this admission?: Yes (4) Fall Qualifiers: Encounter type: initial encounter Qualified Code(s): W19.XXXA - Unspecified fall, initial encounter Is this a current diagnosis for this admission?: Yes (5) Type II diabetes mellitus Qualifiers: Diabetes mellitus jail insulin use: with jail use Diabetes me llitus complication status: with other specified complication Qualified C ode(s): E11.69 - Type 2 diabetes mellitus with other specified complication; Z79.4 - detention (current) use of insulin Is this a current diagnosis for this admission?: Yes (6) COPD (chronic obstructive pulmonary disease) Qualifiers: COPD type: unspecified COPD Qualified Code(s): J44.9 - Chronic obstructive pulmonary disease, unspecified Is this a current diagnosis for this admission?: Yes (7) DVT prophylaxis Is this a current diagnosis for this admission?: Yes - Plan Summary Summary: ISI RUBIO is a 65 year old female with PMH notable for 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 Lerma) who was brought to the ED by EMS after being found unresponsive at home. Ms. Rubio lives with a friend. Over the last few weeks, she has become much more debilitated, weak and somnolent. Some days, she sleeps 20 out of 24 hours. She has developed a decubitus ulcer of her coccyx due to the amount of time she spends in bed. She has had increased oxygen needs and is now requiring at least 3 L O2 via NC throughout the day (previously only on O2 at night). She has been much more ataxic lately. She suffered a mechanical fall a few days ago and has had increased back pain since her fall. She is followed by a windows technical specialist who prescribes her a Fentanyl patch, Ativan and Percocet - the doses of these medications have not changed recently. However, after her fall and increased back pain, her doctor prescribed Flexeril, which she has only been taking for the last 2 days. She was last seen normal around midnight on 07/25 when she took her medications. When her friend checked on her around 9 AM on 07/25, she was found to be unresponsive and appeared cyanotic, so EMS were called. She responded quickly to Narcan administration. In the ED, she was placed on BIPAP for respiratory acidosis. Acute on Chronic Hypoxemic and Hypercapnic Respiratory Failure: due to accident al drug overdose, likely as a result of the cumulative effects of Fentanyl patch, Ativan, Percocet and Flexeril. She also has underlying COPD. She has a RUL infiltrate on CXR today - unclear if this is infectious or related to malignancy. She just had an outpatient CT head/neck/chest on 07/24/2020 ( radiology reports not yet available) - would be interesting to know if this infiltrate was present before and, if so, how it appears on CT. 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 Progression of disease may explain her decline over the last f ew weeks. - consult oncology - she would be appropriate hospice candidate based on her metastatic cancer and rapid decline over the last few weeks Leukocytosis with bandemia: may be due to stress of overdose, but infection is on the differential in this immunocompromised woman. RUL infiltrate concerning for potential pneumonia. She has had no sick contacts, history of fevers, cough, abdominal pain, vomiting/diarrhea, urinary symptoms, etc. UA appears unremarkable. - BCx x2 - start ceftriaxone/azithromycin COPD: on 3 L O2 at baseline - no evidence of exacerbation - DuoNebs PRN Anemia of Chronic Disease - no signs/symptoms of active bleeding Recent Fall Generalized Weakness - fall precautions - may benefit from Home Health for PT/OT if within goals of care DVT ppx: Lovenox Code Status: DNR/DNI - Time Time Spent with patient: 35 or more minutes Anticipated Discharge Disposition: Home with Hospice Anticipated Discharge Timeframe: within 48 hours
--- NOTE | 2020-07-25 18:10 | ADVANCED CARE ---
- Diagnosis (1) Acute respiratory failure with hypoxia and hypercapnia Diagnosis Current: Yes (2) Metastatic squamous cell carcinoma Diagnosis Current: Yes (3) Generalized weakness Diagnosis Current: Yes (4) Fall Diagnosis Current: Yes (5) COPD (chronic obstructive pulmonary disease) Diagnosis Current: Yes Attendance: Catherine Ruelas Resuscitation Status: Do Not Resuscitate Discussion: Patient does have both an advance directive as well as a living will. Both were reviewed with her POA, Catherine Ruelas. Patient has expressed her wish in writing to be DNR/DNI. Will need to clarify her goals and wishes as it relates to chemotherapy vs home hospice services when she is more awake, alert, and able to take an active role in the conversation. Time Spent: >20 minutes
[2020-07-25] MEDS ORDERED: AZITHROMYCIN 500 MG in DEXTROSE 5%-WATER 250 ML IV SCH (22:00)
[2020-07-25 22:28] LABS: ARTERIAL BLOOD H2CO3 2.11 mmol/L (1.05-1.35); ARTERIAL BLOOD HCO3 31.5 mmol/L (20-24); ARTERIAL BLOOD O2 SATURATION 97.3 % (94-98); ARTERIAL BLOOD PH 7.27 (7.35-7.45); ARTERIAL BLOOD PO2 110.6 mmHg (80-100); ARTERIAL BLOOD TOTAL CO2 33.7 mmol/L (21-25)
[2020-07-25 22:31] LABS: ARTERIAL BLOOD FIO2 3.5L
[2020-07-25 22:33] LABS: ARTERIAL BLOOD PCO2 70.2 mmHg (35-45)
[2020-07-26 06:31] LABS: ABSOLUTE BASOPHILS # (AUTO) 0.1 10^3/uL (0.0-0.2); ABSOLUTE LYMPHOCYTES (AUTO) 1.2 10^3/uL (0.5-4.7); ABSOLUTE MONOCYTES (AUTO) 0.5 10^3/uL (0.1-1.4); ABSOLUTE NEUT (AUTO) 11.5 10^3/uL (1.7-8.2); BASOPHILS % (AUTO) 0.5 % (0-2); EOSINOPHILS % (AUTO) 0.1 % (0-6); HEMOGLOBIN 9.4 g/dL (12.0-15.5); MEAN CORPUSCULAR HGB CONC 32.5 g/dL (32.0-36.0); MEAN CORPUSCULAR VOLUME 89 fl (80-97); MONOCYTES % (AUTO) 4.1 % (3-13); PLATELET COUNT 443 10^3/uL (150-450); RED BLOOD COUNT 3.25 10^6/uL (3.72-5.28); RED CELL DISTRIBUTION WIDTH 15.4 % (11.5-14.0); SEGMENTED NEUTROPHILS % (AUTO) 86.3 % (42-78); TOTAL CELLS COUNTED % (AUTO) 100 %; WHITE BLOOD COUNT 13.4 10^3/uL (4.0-10.5)
[2020-07-26 06:53] LABS: ANION GAP 6 (5-19); BLOOD UREA NITROGEN 29 mg/dL (7-20); CALCIUM 9.1 mg/dL (8.4-10.2); CARBON DIOXIDE 31 mmol/L (22-30); CHLORIDE 105 mmol/L (98-107); POTASSIUM 3.8 mmol/L (3.6-5.0)
[2020-07-26 07:10] LABS: FREE T4 (FREE THYROXINE) 1.03 ng/dL (0.78-2.19)
[2020-07-26 07:24] LABS: THYROID STIMULATING HORMONE 0.76 uIU/mL (0.47-4.68)
[2020-07-26 07:26] LABS: GLUCOSE 57 mg/dL (75-110)
--- NOTE | 2020-07-26 08:56 | PDOC CONSULTATION ---
Consultation Consult Date: 07/26/20 Provider Consulted: LOIS CERDA Consult reason:: Hematology/Oncology consultation was requested for patient with known metastatic head and neck cancer receiving palliative therapy. 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 Plan was to repeat CT scans and make further recommendations afterward. However, patient presented to the ED yesterday after being found unresponsive. She was given Narcan in the ED and overnight, she has greatly improved. This morning, she states that she wants to go home this morning. She states that Catherine has been making arrangements for her and the hospital bed was already delivered. Her goal is for comfort and to be at home. 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 Psychiatric Medical History: Reports: Depression Hematology: Denies: Anemia, Sickle Cell Disease Infectious Medical History: Denies: Clostridium Difficile, Methicillin-Resistant Staph Aureus Past Surgical History Past Surgical History: Reports: Orthopedic Surgery - Carpal tunnel release., Other - Lung biopsy, revealing benign nodules. Denies: Amputation, Hysterectomy, Mastectomy, Pacemaker Social History Lives with: Friend Smoking Status: Former Smoker Electronic Cigarette use?: No Number of Years Smokin Last Time Smoked: 4 years Frequency of Alcohol Use: None Hx Recreational Drug Use: Yes Drugs: Marijuana Hx Prescription Drug Abuse: Yes - Advance Directive Resuscitation Status: Do Not Resuscitate Family History Family History: CAD, DM, Hypertension Parental Family History Reviewed: Yes Children Family History Reviewed: NA Sibling(s) Family History Reviewed.: Yes Medication/Allergy Home Medications: Albuterol Sulfate [Albuterol Sulfate 2.5mg/3 mL] 2.5 mg NEB RTQ4HP PRN 08/23/17 Budesonide/Formoterol Fumarate [Symbicort HFA 160-4.5 mcg Inhaler 6 gm] 2 puff IH Q12 08/23/17 Enoxaparin Sodium [Lovenox Inj 120 mg/0.8 ml Disp.syrin] 120 mg SUBCUT DAILY 08/23/17 Insulin Glargine,Hum.rec.anlog [Lantus Insulin 100 Unit/mL Insulin Pen] 42 unit SUBCUT QHS 08/23/17 Ipratropium [place] [Atrovent 0.02% Neb 0.5 mg/2.5 ml Ampul] 0.5 mg NEB RTQ4HP PRN 08/23/17 Ipratropium/Albuterol Sulfate [Combivent Respimat 4 gm Mdi] 1 puff IH Q4 08/23/17 Nifedipine [Adalat cc] 60 mg PO DAILY 08/23/17 Omeprazole 40 mg PO DAILY 08/23/17 Paroxetine HCl [Paxil] 10 mg PO DAILY 08/23/17 Albuterol Sulfate [Ventolin 0.083% Neb 2.5 mg/3 mL Ampul] 2.5 mg NEB RTQ4HP PRN #100 vial.neb 08/26/17 Ketorolac Tromethamine 1 drop OP ASDIR 03/31/18 Moxifloxacin HCl [Vigamox] 1 drop OP ASDIR 03/31/18 Prednisolone Acetate [Pred Forte] 1 drop OP ASDIR 03/31/18 Allergies/Adverse Reactions: metformin Allergy (Verified 07/25/20 12:35) mosquito bites Allergy (Severe, Uncoded 04/07/18 06:58) Anaphylaxis Review of Systems Constitutional: ABSENT: fever(s), headache(s) Eyes: PRESENT: visual disturbances Nose, Mouth, and Throat: ABSENT: sore throat Cardiovascular: ABSENT: chest pain Respiratory: ABSENT: dyspnea Gastrointestinal: ABSENT: nausea Genitourinary: ABSENT: dysuria Hematologic/Lymphatic: ABSENT: easy bleeding Physical Exam Vital Signs: Temp Pulse Resp BP Pulse Ox 97.8 F 79 16 149/76 H 96 07/26/20 08:07 07/26/20 07:00 07/26/20 05:13 07/26/20 05:13 07/26/20 05:13 Intake & Output 07/25/20 07/26/20 07/27/20 06:59 06:59 06:59 Intake Total 350 Output Total 600 Balance -250 Weight 79.379 kg General appearance: PRESENT: no acute distress Head exam: PRESENT: other - The areas of discoloration on her forehead and nose have expanded. Mouth exam: PRESENT: moist Respiratory exam: PRESENT: unlabored Extremities exam: ABSENT: pedal edema Neurological exam: PRESENT: alert, awake, oriented to person, oriented to place, oriented to situation Psychiatric exam: PRESENT: appropriate affect Skin exam: PRESENT: cyanosis Results Laboratory Results: 07/26/20 05:20 07/26/20 05:20 07/25/20 07/25/20 07/25/20 12:05 13:15 13:15 WBC 18.7 H RBC 3.41 L Hgb 10.0 L Hct 31.0 L MCV 91 MCH 29.4 MCHC 32.4 RDW 15.5 H Plt Count 468 H Seg Neutrophils % Not Reportable Carbonic Acid 2.59 H HCO3/H2CO3 Ratio 11:1 ABG pH 7.17 L* ABG pCO2 86.2 H* ABG pO2 73.5 L ABG HCO3 30.9 H ABG O2 Saturation 89.8 L ABG Base Excess -0.1 FiO2 4L Sodium 139.7 Potassium 4.0 Chloride 105 Carbon Dioxide 30 Anion Gap 5 BUN 36 H Creatinine 0.85 Est GFR ( Amer) > 60 Glucose 126 H Lactic Acid Calcium 9.2 Magnesium 1.9 Total Bilirubin 0.4 AST 26 Alkaline Phosphatase 95 Total Protein 5.8 L Albumin 3.0 L TSH Free T4 Urine Color Urine Appearance Urine pH Ur Specific [place] Urine Protein Urine Glucose (UA) Urine Ketones Urine Blood Urine RBC (Auto) 07/25/20 07/25/20 07/25/20 13:15 14:40 15:26 WBC RBC Hgb Hct MCV MCH MCHC RDW Plt Count Seg Neutrophils % Carbonic Acid 1.99 H HCO3/H2CO3 Ratio 14:1 ABG pH 7.26 L ABG pCO2 66.0 H ABG pO2 94.7 ABG HCO3 29.1 H ABG O2 Saturation 96.0 ABG Base Excess 0.9 FiO2 60% Sodium Potassium Chloride Carbon Dioxide Anion Gap BUN Creatinine Est GFR ( Amer) Glucose Lactic Acid 0.7 Calcium Magnesium Total Bilirubin AST Alkaline Phosphatase Total Protein Albumin TSH Free T4 Urine Color YELLOW Urine Appearance SLIGHTLY-CLOUDY Urine pH 5.0 Ur Specific [place] 1.020 Urine Protein 30 H Urine Glucose (UA) NEGATIVE Urine Ketones NEGATIVE Urine Blood MODERATE H Urine RBC (Auto) 0 07/25/20 07/26/20 07/26/20 22:16 05:20 05:20 WBC 13.4 H RBC 3.25 L Hgb 9.4 L Hct 29.0 L MCV 89 MCH 29.0 MCHC 32.5 RDW 15.4 H Plt Count 443 Seg Neutrophils % 86.3 H Carbonic Acid 2.11 H HCO3/H2CO3 Ratio 14:1 ABG pH 7.27 L ABG pCO2 70.2 H* ABG pO2 110.6 H ABG HCO3 31.5 H ABG O2 Saturation 97.3 ABG Base Excess 3.0 FiO2 3.5L Sodium 141.5 Potassium 3.8 Chloride 105 Carbon Dioxide 31 H Anion Gap 6 BUN 29 H Creatinine 0.63 Est GFR ( Amer) > 60 Glucose 57 L Lactic Acid Calcium 9.1 Magnesium 1.9 Total Bilirubin AST Alkaline Phosphatase Total Protein Albumin TSH Free T4 Urine Color Urine Appearance Urine pH Ur Specific [place] Urine Protein Urine Glucose (UA) Urine Ketones Urine Blood Urine RBC (Auto) 07/26/20 05:20 WBC RBC Hgb Hct MCV MCH MCHC RDW Plt Count Seg Neutrophils % Carbonic Acid HCO3/H2CO3 Ratio ABG pH ABG pCO2 ABG pO2 ABG HCO3 ABG O2 Saturation ABG Base Excess FiO2 Sodium Potassium Chloride Carbon Dioxide Anion Gap BUN Creatinine Est GFR ( Amer) Glucose Lactic Acid Calcium Magnesium Total Bilirubin AST Alkaline Phosphatase Total Protein Albumin TSH 0.76 Free T4 1.03 Urine Color Urine Appearance Urine pH Ur Specific [place] Urine Protein Urine Glucose (UA) Urine Ketones Urine Blood Urine RBC (Auto) 07/25/20 13:15 NT-Pro-B Natriuret Pep 1480 H Impressions: Chest X-Ray 07/25/20 12:03 IMPRESSION: Cannot exclude a limited right upper lobe pneumonia. Assessment & Plan - Diagnosis (1) Acute respiratory failure with hypoxia and hypercapnia Is this a current diagnosis for this admission?: Yes Plan: This is now resolved. She is alert, and asking to go home with Hospice. (2) Malignant neoplasm of accessory sinus, unspecified Is this a current diagnosis for this admission?: Yes Plan: She agrees with palliative care only. I discussed this at length with Catherine and they are all in agreement. I have also contacted discharge planners to help arrange for Hospice on discharge.
[2020-07-26 09:41] LABS: ARTERIAL BLOOD BASE EXCESS 5.5 mmol/L; ARTERIAL BLOOD H2CO3 1.72 mmol/L (1.05-1.35); ARTERIAL BLOOD O2 SATURATION 92.5 % (94-98); ARTERIAL BLOOD PCO2 57.2 mmHg (35-45); ARTERIAL BLOOD PH 7.37 (7.35-7.45); ARTERIAL BLOOD PO2 67.7 mmHg (80-100); ARTERIAL BLOOD TOTAL CO2 33.7 mmol/L (21-25)
[2020-07-26 09:44] LABS: ARTERIAL BLOOD FIO2 3.5L
[2020-07-26] MEDS ORDERED: ENOXAPARIN SODIUM INJ 40 MG/0.4 ML DISP.SYRIN SUBCUT SCH (10:00)
[2020-07-26 11:17] LABS: PATH REVIEW PATHOLOGIST REVIEWED
[2020-07-26 11:26] VITALS: BP 110/61
[2020-07-26] MEDS ORDERED: CEFTRIAXONE 1 GM/D5W RTU 1 GM/50 ML RTUPB IV SCH (12:00)
--- NOTE | 2020-07-26 19:49 | PDOC DISCHARGE SUMMARY ---
Impression - Admit/DC Date/PCP Admission Date/Primary Care Provider: 07/25/20 15:55 LOIS LERMA MD Discharge Date: 07/26/20 - Discharge Diagnosis (1) Acute respiratory failure with hypoxia and hypercapnia Is this a current diagnosis for this admission?: Yes (2) Metastatic squamous cell carcinoma Is this a current diagnosis for this admission?: Yes (3) Generalized weakness Is this a current diagnosis for this admission?: Yes (4) Fall Is this a current diagnosis for this admission?: Yes (5) COPD (chronic obstructive pulmonary disease) Is this a current diagnosis for this admission?: Yes - Assessment Summary: ISI RUBIO is a 65 year old female with PMH notable for 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 Lerma) who was brought to the ED by EMS after being found unresponsive at home. Ms. Rubio lives with a friend. Over the last few weeks, she has become much more debilitated, weak and somnolent. Some days, she sleeps 20 out of 24 hours. She has developed a decubitus ulcer of her coccyx due to the amount of time she spends in bed. She has had increased oxygen needs and is now requiring at least 3 L O2 via NC throughout the day (previously only on O2 at night). She has been much more ataxic lately. She suffered a mechanical fall a few days ago and has had increased back pain since her fall. She is followed by a property preservation specialist who prescribes her a Fentanyl patch, Ativan and Percocet - the doses of these medications have not changed recently. However, after her fall and increased back pain, her doctor prescribed Flexeril, which she has only been taking for the last 2 days. She was last seen normal around midnight on 07/25 when she took her medications. When her friend checked on her around 9 AM on 07/25, she was found to be unresponsive and appeared cyanotic, so EMS were called. She responded quickly to Narcan administration. In the ED, she was placed on BIPAP for respiratory acidosis. Acute on Chronic Hypoxemic and Hypercapnic Respiratory Failure: due to accidental drug overdose, likely as a result of the cumulative effects of Fentanyl patch, Ativan, Percocet and Flexeril. She became more awake after several doses of Narcan. She was maintained overnight on BIPAP, with improvement in gases. She was discharged home with advice to stop using Flexeril altogether, as well as Rx for Narcan. 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 Leukocytosis with bandemia: may be due to stress of overdose, but infection is on the differential in this immunocompromised woman. RUL infiltrate concerning for potential pneumonia. She has had no sick contacts, history of fevers, cough, abdominal pain, vomiting/diarrhea, urinary symptoms, etc. UA appears unremarkable. She was prescribed a 3 day course of LEvaquin for possible aspiration PNA. COPD: on 3 L O2 at baseline - no evidence of exacerbation Code Status: DNR/DNI Dispo: discharge home with hospice - Additional Information Resuscitation Status: Do Not Resuscitate Discharge Diet: Regular Discharge Activity: Activity As Tolerated Referrals: LOIS LERMA MD [Primary Care Provider] - Follow up as needed Home Medications: Insulin Glargine,Hum.rec.anlog [Lantus Insulin 100 Unit/mL Insulin Pen] 32 unit SUBCUT QHS 08/23/17 Nifedipine [Adalat cc] 60 mg PO DAILY 08/23/17 Omeprazole 20 mg PO Q12 08/23/17 Paroxetine HCl [Paxil] 20 mg PO DAILY 08/23/17 Albuterol Sulfate [Albuterol Sulfate Hfa] 8.5 gm IH Q4HP PRN 07/26/20 Albuterol Sulfate [Proventil 0.5% Neb 2.5 mg/0.5 ml Vial.neb] 2.5 mg NEB RTQID 07/26/20 Apixaban [Eliquis 5 mg Tablet] 5 mg PO BID 07/26/20 Bisacodyl [Dulcolax] 10 mg PO DAILYP PRN 07/26/20 Budesonide/Formoterol Fumarate [Budesonide-Formoterol 160-4.5] 2 puff IH BID 07/26/20 Dexamethasone [Decadron 4 Mg Tablet] 4 mg PO BID 07/26/20 Fluticasone Propionate [Flonase Nasal [place] 50 Mcg/[place] 16 gm] 2 sprays NASL Q12 07/26/20 Lorazepam [Ativan 0.5 mg Tablet] 0.25 mg PO Q12HP PRN 07/26/20 Ondansetron HCl [Zofran 8 mg Tablet] 8 mg PO Q8HP PRN 07/26/20 Prochlorperazine Maleate [Compazine] 10 mg PO TIDP PRN 07/26/20 Promethazine HCl 25 mg RC Q4HP PRN 07/26/20 Tiotropium Br/Olodaterol HCl [Stiolto Respimat Inhal [place]] 2 puff IH DAILY 07/26/20 History of Present Illiness History of Present Illness: ISI RUBIO is a 65 year old female with PMH of 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 Lerma) who was brought to the ED by EMS after being found unresponsive at home. Physical Exam Vital Signs: Temp Pulse Resp BP Pulse Ox 97.8 F 91 20 110/61 95 07/26/20 11:24 07/26/20 11:24 07/26/20 11:24 07/26/20 11:24 07/26/20 11:24 Intake & Output 07/25/20 07/26/20 07/27/20 06:59 06:59 06:59 Intake Total 350 Output Total 600 Balance -250 Weight 79.379 kg Results Laboratory Results: WBC 13.4 10^3/uL (4.0-10.5) H 07/26/20 05:20 RBC 3.25 10^6/uL (3.72-5.28) L 07/26/20 05:20 Hgb 9.4 g/dL (12.0-15.5) L 07/26/20 05:20 Hct 29.0 % (36.0-47.0) L 07/26/20 05:20 MCV 89 fl (80-97) 07/26/20 05:20 MCH 29.0 pg (27.0-33.4) 07/26/20 05:20 MCHC 32.5 g/dL (32.0-36.0) 07/26/20 05:20 RDW 15.4 % (11.5-14.0) H 07/26/20 05:20 Plt Count 443 10^3/uL (150-450) 07/26/20 05:20 Lymph % (Auto) 9.0 % (13-45) L 07/26/20 05:20 [place] % (Auto) 4.1 % (3-13) 07/26/20 05:20 Eos % (Auto) 0.1 % (0-6) 07/26/20 05:20 Baso % (Auto) 0.5 % (0-2) 07/26/20 05:20 Absolute Neuts (auto) 11.5 10^3/uL (1.7-8.2) H 07/26/20 05:20 Absolute Lymphs (auto) 1.2 10^3/uL (0.5-4.7) 07/26/20 05:20 Absolute Monos (auto) 0.5 10^3/uL (0.1-1.4) 07/26/20 05:20 Absolute Eos (auto) 0.0 10^3/uL (0.0-0.6) 07/26/20 05:20 Absolute Basos (auto) 0.1 10^3/uL (0.0-0.2) 07/26/20 05:20 Total Counted 100 07/25/20 13:15 Seg Neutrophils % 86.3 % (42-78) H 07/26/20 05:20 Seg Neuts % (Manual) 88 % (42-78) H 07/25/20 13:15 Band Neutrophils % 8 % (3-5) H 07/25/20 13:15 Lymphocytes % (Manual) 0 % (13-45) L 07/25/20 13:15 Monocytes % (Manual) 1 % (3-13) L 07/25/20 13:15 Eosinophils % (Manual) 0 % (0-6) 07/25/20 13:15 Basophils % (Manual) 0 % (0-2) 07/25/20 13:15 Myelocytes % 2 % (0) H 07/25/20 13:15 Promyelocytes % 1 % (0) H 07/25/20 13:15 Immature Leukocytes % % (0) 07/25/20 13:15 Abs Neuts (Manual) 18.5 10^3/uL (1.7-8.2) H 07/25/20 13:15 Abs Lymphs (Manual) 0.0 10^3/uL (0.5-4.7) L 07/25/20 13:15 Abs Monocytes (Manual) 0.2 10^3/uL (0.1-1.4) 07/25/20 13:15 Absolute Eos (Manual) 0.0 10^3/uL (0.0-0.6) 07/25/20 13:15 Abs Basophils (Manual) 0.0 10^3/uL (0.0-0.2) 07/25/20 13:15 Platelet Comment INCREASED 07/25/20 13:15 RBC Morph Comment NORMO-CYTIC/CHROMIC 07/25/20 13:15 PT 14.2 SEC (11.4-15.4) 07/25/20 13:15 INR 1.08 07/25/20 13:15 APTT 28.5 SEC (23.5-35.8) 07/25/20 13:15 Carbonic Acid 1.72 mmol/L (1.05-1.35) H 07/26/20 09:27 HCO3/H2CO3 Ratio 18:1 07/26/20 09:27 ABG pH 7.37 (7.35-7.45) 07/26/20 09:27 ABG pCO2 57.2 mmHg (35-45) H 07/26/20 09:27 ABG pO2 67.7 mmHg (80-100) L 07/26/20 09:27 ABG HCO3 32.0 mmol/L (20-24) H 07/26/20 09:27 ABG Total CO2 33.7 mmol/L (21-25) H 07/26/20 09:27 ABG O2 Saturation 92.5 % (94-98) L 07/26/20 09:27 ABG Base Excess 5.5 mmol/L 07/26/20 09:27 FiO2 3.5L 07/26/20 09:27 Sodium 141.5 mmol/L (137-145) 07/26/20 05:20 Potassium 3.8 mmol/L (3.6-5.0) 07/26/20 05:20 Chloride 105 mmol/L (98-107) 07/26/20 05:20 Carbon Dioxide 31 mmol/L (22-30) H 07/26/20 05:20 Anion Gap 6 (5-19) 07/26/20 05:20 BUN 29 mg/dL (7-20) H 07/26/20 05:20 Creatinine 0.63 mg/dL (0.52-1.25) 07/26/20 05:20 Est GFR ( Amer) > 60 (>60) 07/26/20 05:20 Est GFR (MDRD) Non-Af > 60 (>60) 07/26/20 05:20 Glucose 57 mg/dL (75-110) L 07/26/20 05:20 POC Glucose 42 mg/dL (70-110) L 07/26/20 08:39 Lactic Acid 0.7 mmol/L (0.7-2.1) 07/25/20 13:15 Calcium 9.1 mg/dL (8.4-10.2) 07/26/20 05:20 Magnesium 1.9 mg/dL (1.6-2.3) 07/26/20 05:20 Total Bilirubin 0.4 mg/dL (0.2-1.3) 07/25/20 13:15 Direct Bilirubin 0.3 mg/dL (0.0-0.4) 07/25/20 13:15 Neonat Total Bilirubin Not Reportable 07/25/20 13:15 Neonat Direct Bilirubin Not Reportable 07/25/20 13:15 Neonat Indirect Bili Not Reportable 07/25/20 13:15 AST 26 U/L (14-36) 07/25/20 13:15 ALT 16 U/L (<35) 07/25/20 13:15 Alkaline Phosphatase 95 U/L (38-126) 07/25/20 13:15 NT-Pro-B Natriuret Pep 1480 pg/mL (<125) H 07/25/20 13:15 Total Protein 5.8 g/dL (6.3-8.2) L 07/25/20 13:15 Albumin 3.0 g/dL (3.5-5.0) L 07/25/20 13:15 TSH 0.76 uIU/mL (0.47-4.68) 07/26/20 05:20 Free T4 1.03 ng/dL (0.78-2.19) 07/26/20 05:20 Urine Color YELLOW 07/25/20 15:26 Urine Appearance SLIGHTLY-CLOUDY 07/25/20 15:26 Urine pH 5.0 (5.0-9.0) 07/25/20 15:26 Ur Specific [place] 1.020 07/25/20 15:26 Urine Protein 30 mg/dL (NEGATIVE) H 07/25/20 15:26 Urine Glucose (UA) NEGATIVE mg/dL (NEGATIVE) 07/25/20 15:26 Urine Ketones NEGATIVE mg/dL (NEGATIVE) 07/25/20 15:26 Urine Blood MODERATE (NEGATIVE) H 07/25/20 15:26 Urine Nitrite (Reflex) NEGATIVE (NEGATIVE) 07/25/20 15:26 Urine Bilirubin NEGATIVE (NEGATIVE) 07/25/20 15:26 Urine Urobilinogen NEGATIVE mg/dL (<2.0) 07/25/20 15:26 Leukocyte Esterase Rfl NEGATIVE (NEGATIVE) 07/25/20 15:26 Urine RBC (Auto) 0 /HPF 07/25/20 15:26 Urine WBC (Reflex) 2 /HPF 07/25/20 15:26 Squamous Epi Cells Auto <1 /HPF 07/25/20 15:26 Urine Mucus (Auto) RARE /LPF 07/25/20 15:26 Urine Ascorbic Acid NEGATIVE (NEGATIVE) 07/25/20 15:26 Salicylates < 1.0 mg/dL (2.0-20.0) L 07/25/20 13:15 Urine Opiates Screen UNCONFIRMED POSITIVE 07/25/20 15:26 Urine Methadone Screen NEGATIVE 07/25/20 15:26 Acetaminophen < 10 ug/mL (10-30) L 07/25/20 13:15 Ur Barbiturates Screen NEGATIVE 07/25/20 15:26 Ur Phencyclidine Scrn NEGATIVE 07/25/20 15:26 Ur Amphetamines Screen NEGATIVE 07/25/20 15:26 U Benzodiazepines Scrn NEGATIVE 07/25/20 15:26 Urine Cocaine Screen NEGATIVE 07/25/20 15:26 U Marijuana (THC) Screen UNCONFIRMED POSITIVE 07/25/20 15:26 Serum Alcohol < 10 mg/dL (NONE DETECTED) 07/25/20 13:15 Slides for Path Review PATHOLOGIST REVIEWED 07/25/20 13:15 07/25/20 13:15 NT-Pro-B Natriuret Pep 1480 H Impressions: Chest X-Ray 07/25/20 12:03 IMPRESSION: Cannot exclude a limited right upper lobe pneumonia. Stroke Is this a Stroke Patient?: No Acute Heart Failure Is this a Heart Failure Patient?: No
--- NOTE | 2020-07-26 19:50 | ADVANCED CARE ---
- Diagnosis (1) Acute respiratory failure with hypoxia and hypercapnia Diagnosis Current: Yes (2) Metastatic squamous cell carcinoma Diagnosis Current: Yes (3) Generalized weakness Diagnosis Current: Yes (4) Fall Diagnosis Current: Yes (5) COPD (chronic obstructive pulmonary disease) Diagnosis Current: Yes Resuscitation Status: Comfort Measures Only Discussion: Patient does have both an advance directive as well as a living will. Both were reviewed with her POA, Catherine Ruelas. Patient has expressed her wish to be discharged home with hospice for ongoing symptom management. Time Spent: >16 minutes
== END 2020-07-26 12:42 | disposition hospice, home (50) | DRG 917 ==
LOC: ER 11:38 → EH 15:55 → 5 18:51
PROVIDERS: ADMIT Hospitalist; ATTEND Hospitalist
PROC: 5A09457 Assistance with Respiratory Ventilation, 24-96 Consecutive Hours, Continuous Positive Airway Pressure (ICD-10-PCS; principal; 2020-07-25)
DX: T40.411A Poisoning by fentanyl or fentanyl analogs, accidental (unintentional), initial encounter (principal); J96.21 Acute and chronic respiratory failure with hypoxia; J96.22 Acute and chronic respiratory failure with hypercapnia; C79.9 Secondary malignant neoplasm of unspecified site; T42.4X1A Poisoning by benzodiazepines, accidental (unintentional), initial encounter; T39.1X1A Poisoning by 4-Aminophenol derivatives, accidental (unintentional), initial encounter; T48.1X1A Poisoning by skeletal muscle relaxants [neuromuscular blocking agents], accidental (unintentional), initial encounter; C31.9 Malignant neoplasm of accessory sinus, unspecified; J44.9 Chronic obstructive pulmonary disease, unspecified; W19.XXXA Unspecified fall, initial encounter; I10 Essential (primary) hypertension; E10.9 Type 1 diabetes mellitus without complications; K21.9 Gastro-esophageal reflux disease without esophagitis; F32.9 Major depressive disorder, single episode, unspecified; L89.159 Pressure ulcer of sacral region, unspecified stage; D63.0 Anemia in neoplastic disease; Y92.9 Unspecified place or not applicable; Z87.891 Personal history of nicotine dependence; Z92.3 Personal history of irradiation; Z79.51 Long term (current) use of inhaled steroids; Z99.81 Dependence on supplemental oxygen; Z66 Do not resuscitate; Z79.4 Long term (current) use of insulin; Z88.8 Allergy status to other drugs, medicaments and biological substances; Z91.038 Other insect allergy status; Z91.81 History of falling; Z79.899 Other long term (current) drug therapy; Z79.01 Long term (current) use of anticoagulants; Z86.718 Personal history of other venous thrombosis and embolism; Z82.49 Family history of ischemic heart disease and other diseases of the circulatory system; Z83.3 Family history of diabetes mellitus
CPT/HCPCS: 36415; 36600; 71045; 80048; 80053; 80307; 81001; 82803; 82962; 83605; 83735; 83880; 84439; 84443; 85025; 85610; 85730; 87040; 87077; 87150; 87186; 94640; 94660; 96365; 96375; 99285; J0456; J0696; J1100; J1650; J7030; J7060